=== PATIENT | male | born 1955 | race Caucasian/White ===

== ENCOUNTER 2023-06-18 12:08 | Outpatient (OUT) | payer MEDICARE, OTHER, SELFPAY ==
--- NOTE | 2023-06-18 | XR_ITS ---
The [address] [address] Patient Name: SUDHA HERR MRN: [id number] date: 1955 Sex: M Assigned Patient Location: [facility] Current Patient Location: Accession/Order Number: [id number] Exam Date: 06/18/2023 12:16 Report Date: 06/19/2023 01:14 At the request of: AGUSTIN HAMLIN Procedure: XR foot CARL min 3V PROCEDURE: XR foot CARL min 3V HISTORY: BILATERAL FOOT PAIN and swelling; chronic COMPARISON: None. FINDINGS: BONES:Moderate marked degenerative changes of the midfoot and the tarsal metatarsal joints bilaterally. Mild/moderate degenerative changes of the first metatarsophalangeal joints. Prominent degenerative enthesopathic spurring of the calcaneus. SOFT TISSUES:Moderate swelling bilaterally. EFFUSION:None visible. OTHER: Negative. XR/XR foot CARL min 3V IMPRESSION: 1. No acute bone abnormality. 2. Moderate degenerative changes bilaterally; predominantly involving the midfoot. Electronically authenticated by: GISSELLE MORA Date: 06/19/2023 01:14
== END 2023-06-18 12:09 | disposition home or self-care (01) ==
LOC: RAD 12:15
PROVIDERS: PCP Internal Medicine; Visit Provider Physician Assistant
DX: M25.571 Pain in right ankle and joints of right foot (principal); M25.572 Pain in left ankle and joints of left foot
CPT/HCPCS: 73630

== ENCOUNTER 2023-07-06 12:43 | Outpatient (OUT) | payer MEDICARE, OTHER, SELFPAY ==
--- NOTE | 2023-07-06 12:49 | VEIN_ITS ---
Patient Name: SUDHA HERR MR#: [id number] : 1955 Exam Date: 07/06/2023 Ordering Doctor: DR LAZARO BUTLER M.D. RADIOLOGY REPORT PROCEDURE: VC EXT VENOUS REFLUX CARL LMTD COMPARISON: None. INDICATIONS: Localized Edema R60 TECHNIQUE: Duplex imaging of the lower extremity to assess the deep and superficial venous system for the presence of deep or superficial venous incompetence and to document the location and severity of disease. The study includes evaluation of the great saphenous vein (GSV), anterior accessory saphenous vein (AASV) and small saphenous vein (SSV). Patient scanned in reverse Trendelenburg and standing. FINDINGS: RIGHT LOWER EXTREMITY: Saphenofemoral Junction Reflux: Yes 7.3mm 2.0 sec GSV: Diam (mm) Reflux/ Time (sec) Proximal Thigh 6.8 Yes 0.9 Mid Thigh 6.1 Yes 0.9 Distal Thigh 4.9 Yes 1.3 Prox Calf 3.9 Yes 1.4 Mid Calf 3.7 Yes 2.8 Saphenopopliteal Junction Reflux: 5.6mm Yes 1.5 SSV: Proximal Calf 5.5 Yes 0.9 Mid Calf 3.9 Yes 1.3 AASV: Proximal Thigh 3.8 No Mid Thigh 2.9 No Distal Thigh Thrombi: No acute or chronic thrombus visualized Compressibility: Normal Flow: Normal Preforator: Dist/med calf 3.2mm with 0.7s reflux. Mid/med calf 4.9mm with 0.9s reflux. Tech Note: Incompetent GSV and SSV. Patent varicose vein dist/med 2.7mm with 1.1s reflux. Patent varicose vein mid/posterior 3.3mm with 1.1s reflux. Patent varicose vein dist/med thigh 3.1mm with 0.9s reflux. LEFT LOWER EXTREMITY: Saphenofemoral Junction Reflux: Yes 6.4 mm 1.6 sec GSV: Diam (mm) Reflux/Time (sec) Proximal Thigh 6.1 Yes 1.6 Mid Thigh 5.6 Yes 1.4 Distal Thigh 4.6 Yes 0.7 Prox Calf 3.6 Yes 0.7 Mid Calf 3.8 Yes 0.9 Saphenopopliteal Junction Relux: 2.9 mm No SSV: Proximal Calf 2.0 No Mid Calf 2.5 Yes 0.5 AASV: Proximal Thigh 4.9 No Mid Thigh 3.8 Yes 0.9 Distal Thigh No Thrombi: No acute or chronic thrombus visualized Compressibility: Normal Flow: Normal Theatrical Dresser: Dist/med calf 4.0mm with 0.8s reflux. Mid/med calf 3.3mm with 1.1s reflux. Tech Note: Incompetent GSV. Patent varicose vein mid/med calf 4.0mm with 1.6s reflux. Patent varicose vein 3.9mm with 0.9s reflux. Patent varicose vein medial knee 3.8mm with 2.5s reflux. CONCLUSION: 1. Abnormally dilated and incompetent great saphenous veins bilaterally, right small saphenous vein, multiple incompetent branch saphenous varicosities and bilateral lower extremity screen printer veins. Dictated by: Isaías Quintero M.D. on 07/06/2023 at 14:30 Approved by: Isaías Quintero M.D. on 07/06/2023 at 14:57
--- NOTE | 2023-07-06 12:51 | VEIN_ITS ---
Patient Name: SUDHA HERR MR#: [id number] : 1955 Exam Date: 07/06/2023 Ordering Doctor: DR LAZARO BUTLER M.D. RADIOLOGY REPORT PROCEDURE: FACILITY EST [facility] - OFFICE VISIT INITIAL COMPARISON: None. PROGRESS NOTES: [age] year old male who presents with a 10 year history of leg swelling, muscle cramping, reticular and spider veins, skin discoloration. The patient's left leg symptoms are worse than the right. There has been a progression of symptoms over time. This increases with prolonged leg dependency. The patient describes an improvement with rest, elevation, exercise, support stockings. The patient denies any signs and symptoms to suggest arterial ischemia. The patient describes a family history varicose veins on maternal side, diabetes. The patient has drinking and smoking history of occasional alcohol consumption; daily smoker. Patient has a past medical history significant for bilateral hearing loss, peripheral neuropathy, hypertension, type 2 diabetes, restless leg syndrome, gout. The patient denies a history of deep venous thrombus or pulmonary embolus. See separate history and physical for medication list. No prior treatment for varicose or spider veins. Current use of compression stockings. After review of nurse notes, history and physical exam I discussed at length the pathophysiology of venous hypertension and possible treatments, therapies and strategies available. We discussed at length the importance of elevating the lower extremities above the level of the heart, increased physical activity and compression stocking use. Ultrasound venous reflux study performed today was discussed at length with the patient. The report demonstrates abnormally dilated and incompetent great saphenous veins bilaterally, right small saphenous vein, incompetent branch saphenous varicosities bilaterally, and dilated/incompetent lower extremity edge cutter veins bilaterally.. PHYSICAL EXAM: The right leg demonstrates several varicosities, prominent reticular and spider veins, no ulceration, mild-moderate edema, distal lower extremity skin discoloration. The left leg demonstrates several varicosities, prominent reticular and spider veins, no ulceration, mild-moderate edema, distal lower extremity skin discoloration. Both thighs, legs and feet were symmetrically warm to the touch. Good posterior tibial and dorsalis pedis pulses were present bilaterally. VEIN/ Facility EST Comprehensive IMPRESSION: 1. Bilateral lower extremity venous insufficiency 2. Bilateral lower extremity varicose veins 3. Mild-moderate lower extremity subcutaneous edema 4. No flow significant arterial disease 5. CEAP: C4a, EC, AP, GA PLAN: 1. Continued use of compression stockings 2. Elevated legs and increased physical activity symptomatic relief 3. Endovenous laser ablation of right great saphenous, left great saphenous, right small saphenous veins. 4. Microfoam chemical ablation of bilateral branch saphenous varicosities. 5. Sclerotherapy of numerous prominent reticular veins and scattered spider veins. Nurse notes, history and physical were reviewed and confirmed, see attached forms. The nurse was present throughout the physical exam and consultation Dictated by: Isaías Quintero M.D. on 07/06/2023 at 14:57 Approved by: Isaías Quintero M.D. on 07/06/2023 at 15:02
== END 2023-07-06 12:44 | disposition home or self-care (01) ==
LOC: VC 12:44
PROVIDERS: PCP Physician Assistant; Visit Provider Radiology Diagnostic Radiology
DX: R60.0 Localized edema (principal)
CPT/HCPCS: 93970; G0463

== ENCOUNTER 2023-07-07 11:59 | Outpatient (OUT) | payer MEDICARE, OTHER, SELFPAY ==
--- NOTE | 2023-07-07 14:05 | CA_ITS ---
The 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 PVR waveform with normal upstroke, amplitude and dicrotic notch Right: - significant pressure gradient between the calf and DP cuff - normal TERESA Left: - significant pressure gradient between the calf and DP cuff - normal TERESA Impression: - elevated indices (B/L thigh, B/L calf) consistent with calcified, noncompressible arterial aguilera, which may underestimate the degree of arterial disease present - normal arterial evaluation of the lower extremities without hemodynamic impairment of the B/L lower extremities at rest (right TERESA 1.07, left TERESA 1.23) Electronically Signed On 07-08-2023 7:20:57 EST by CHAIM CABALLERO
== END 2023-07-07 12:00 | disposition home or self-care (01) ==
LOC: CARD 11:59
PROVIDERS: PCP Physician Assistant; Visit Provider Internal Medicine
DX: R09.89 Other specified symptoms and signs involving the circulatory and respiratory systems (principal)
CPT/HCPCS: 93923

== ENCOUNTER 2023-11-03 13:58 | Outpatient (OUT) | payer MEDICARE, OTHER, SELFPAY ==
--- NOTE | 2023-11-03 14:41 | XR_ITS ---
The [address] [address] Patient Name: SUDHA HERR MRN: [id number] date: 1955 Sex: M Assigned Patient Location: LAB Current Patient Location: Accession/Order Number: [id number] Exam Date: 11/03/2023 14:25 Report Date: 11/05/2023 06:35 At the request of: SHAIKH DEION Procedure: XR cervical spine 2-3V EXAMINATION: XR cervical spine 2-3V HISTORY: neck pain, acute M54.2 ; acute neck pain radiating into shoulders COMPARISON: XR cervical spine 03/18/2014 FINDINGS: BONES: Reversal normal lordotic curvature of the cervical spine. Multilevel moderate degenerative facet arthropathy. No appreciable fracture or spondylolisthesis. DISC SPACES: Multilevel mild disc space narrowing. PARASPINOUS: Negative. No paraspinous abnormality is seen. OTHER: Negative. XR/XR cervical spine 2-3V IMPRESSION: 1. Reversal of normal lordotic curvature; also seen on the 2013 study, but slightly progressed. 2. Multilevel moderate degenerative changes. 3. Limited evaluation due to patient body habitus since the lower cervical spine is obscured by shoulder structures. Electronically authenticated by: GISSELLE MORA Date: 11/05/2023 06:35
--- NOTE | 2023-11-03 14:41 | XR_ITS ---
The [address] [address] Patient Name: SUDHA HERR MRN: [id number] date: 1955 Sex: M Assigned Patient Location: LAB Current Patient Location: LAB Accession/Order Number: [id number] Exam Date: 11/03/2023 14:25 Report Date: 11/03/2023 14:55 At the request of: SHAIKH DEION Procedure: XR shoulder CARL min 2V EXAMINATION: XR shoulder CARL min 2V HISTORY: Chronic pain of both shoulders M25.511 COMPARISON: No relevant comparison available. FINDINGS: RIGHT FINDINGS: BONES: High riding humeral head contacting the undersurface of the acromion process. Prominent degenerative osteophyte projecting inferiorly from articular margin of humeral head. Mild narrowing of the acromioclavicular joint with undersurface osteophytes. SOFT TISSUES: No visible soft tissue swelling. OTHER: Negative. LEFT FINDINGS: BONES: Narrowing of the glenohumeral joint with small degenerative osteophyte projecting inferiorly from the articular margin of the humeral head. Bone anchor within lateral humeral head from prior rotator cuff repair. Mild degenerative changes of the acromioclavicular joint. SOFT TISSUES: No visible soft tissue swelling. OTHER: Negative. XR/XR shoulder CARL min 2V IMPRESSION: RIGHT CONCLUSION: 1. High riding humeral head contacting the acromion process consistent with rotator cuff disruption versus marked thinning. 2. Moderate degenerative joint disease. No fracture. LEFT CONCLUSION: 1. Moderate degenerative joint disease. No acute bone abnormality. Electronically authenticated by: GISSELLE MORA Date: 11/03/2023 14:55
[2023-11-03 15:10] LABS: Basophils Absolute Auto 0.1 10^3/uL (0.0-0.1); Basophils Percent Auto 0.7 % (0.2-2.0); Eosinophils Absolute Auto 0.2 10^3/uL (0.0-0.7); Eosinophils Percent Auto 2.7 % (0.9-7.0); Hematocrit 40.6 % (42.0-54.0); Hemoglobin 13.4 g/dL (14.0-18.0); Immature Granulocytes Abs Auto 0.01 10^3/uL (0.00-0.03); Immature Granulocytes Pct Auto 0.1 % (0.0-0.5); Lymphocytes Absolute Auto 0.9 10^3/uL (1.2-3.8); Lymphocytes Percent Auto 13.6 % (20.5-60.0); Mean Corpuscular Hemoglobin 31.4 pg (25.9-34.0); Mean Corpuscular Volume 95.1 fL (80.0-94.0); Mean Platelet Volume 10.8 fL (9.5-13.5); Monocytes Absolute Auto 0.8 10^3/uL (0.3-0.8); Monocytes Percent Auto 11.9 % (1.7-12.0); Neutrophils Absolute Auto 4.8 10^3/uL (1.4-6.5); Platelet Count 250 10^3/uL (150-450); Red Blood Count 4.27 10^6/uL (4.70-6.10); Red Cell Distribution Width 12.8 % (11.0-15.0); White Blood Count 6.7 10^3/uL (4.0-11.0)
[2023-11-03 15:22] LABS: Microalbum Creatinine Ratio Ur 5.3 mg/g (0.0-29.9); Microalbumin Urine Random 2.2 mg/dL (<=30.0)
[2023-11-03 15:55] LABS: Estimated Average Glucose 137 mg/dL; Glycohemoglobin A1C 6.4 % (4.5-6.2)
[2023-11-03 15:56] LABS: Alanine Aminotransferase 35 U/L (16-63); Albumin Globulin Ratio 0.7; Albumin Level 3.3 g/dL (3.4-5.0); Alkaline Phosphatase 92 U/L (46-116); Anion Gap 13.9; Aspartate Amino Transferase 24 U/L (15-37); BUN Creatinine Ratio 17.5; Bilirubin Total 0.7 mg/dL (0.2-1.0); Calcium 9.3 mg/dL (8.5-10.1); Carbon Dioxide 28.1 mmol/L (21.0-32.0); Chloride 101 mmol/L (98-107); Cholesterol 115 mg/dL (<=200); Estimated GFR (African America >60 (>=60); Estimated GFR (Non-African Ame 57 (>=60); Globulin 4.6 g/dL; Glucose 103 mg/dL (74-106); HDL Cholesterol 29 mg/dL (40-60); Sodium 139 mmol/L (136-145); Total Protein 7.9 g/dL (6.4-8.2); Triglycerides 79 mg/dL (<=150); VLDL CHOLESTEROL 15.8 mg/dL
[2023-11-05 19:07] LABS: Free Testosterone(Direct) 2.1 pg/mL (6.6-18.1); Testosterone 79 ng/dL (264-916)
== END 2023-11-03 13:59 | disposition home or self-care (01) ==
LOC: LAB 14:02
PROVIDERS: PCP Physician Assistant; Visit Provider Internal Medicine
DX: M25.511 Pain in right shoulder (principal); E11.9 Type 2 diabetes mellitus without complications; I10 Essential (primary) hypertension; E78.5 Hyperlipidemia, unspecified; N52.9 Male erectile dysfunction, unspecified; G89.29 Other chronic pain; M25.512 Pain in left shoulder; M54.2 Cervicalgia; M19.011 Primary osteoarthritis, right shoulder
CPT/HCPCS: 36415; 72040; 73030; 80053; 80061; 82043; 82570; 83036; 84402; 84403; 85025

== ENCOUNTER 2023-11-12 10:30 | Outpatient (OUT) | payer MEDICARE, OTHER, SELFPAY ==
--- NOTE | 2023-11-12 10:35 | MR_ITS ---
[place] [id number] Patient Name: SUDHA HERR MRN: [id number] date: 1955 Sex: M Assigned Patient Location: MRI Current Patient Location: MRI Accession/Order Number: [id number] Exam Date: 11/12/2023 11:00 Report Date: 11/12/2023 16:36 At the request of: SHAIKH DEION Procedure: MR shoulder RT wo con EXAMINATION: MR shoulder RT wo con HISTORY: Chronic Right Shoulder Pain M25.511 COMPARISON: No relevant comparison available. TECHNIQUE: A variety of imaging planes and parameters were utilized for visualization of suspected pathology. Imaging was performed without or with contrast as indicated by examination type. FINDINGS: ROTATOR CUFF REGION CUFF TENDONS: A full thickness tear involves the supraspinatus and subscapularis tendons, with significant proximal retraction. CUFF MUSCLES: No significant fatty replacement. DELTOID: No significant atrophy or tear. LONG BICEPS TENDON: Disrupted versus marked attenuation. LABRUM/BICEPS ANCHOR SUPERIOR: No visible labral tear or biceps anchor pathology. ANTERIOR/INFERIOR: No visible tear or attrition. POSTERIOR: No posterior labrum abnormality. CAPSULE No visible capsular laxity or thickening. AC JOINT REGION AC JOINT: Moderate osteoarthropathy with moderate narrowing of the underlying coracoacromial arch. AC LIGAMENTS: Normal acromioclavicular ligament. CC LIGAMENTS: Normal coracoclavicular ligaments. ACROMION: Normal horizontal (Type I) configuration. SUBACROMIAL BURSA: Small amount of fluid within bursa. HYALINE CARTILAGE: Marked thinning with suspected areas of focal defect overlying the superior and superior lateral aspect of the humeral head. OTHER BONES: High riding humeral head contacting the undersurface of the acromion process. Large degenerative osteophyte projecting from inferior articular margin of the humeral head. OTHER OBSERVATIONS: No other significant findings or glenohumeral effusion. MR/MR shoulder RT wo con IMPRESSION: 1. Complete tear with significant proximal retraction of the supraspinatus and subscapularis tendons. 2. Disruption versus marked attenuation/atrophy of long head of biceps tendon. 3. Moderate degenerative changes of the acromioclavicular joint which would predispose to rotator cuff injury. 4. Cartilage thinning, high riding humeral head contacting the acromion process, and degenerative osteophyte from inferior margin of humeral head. Electronically authenticated by: GISSELLE MORA Date: 11/12/2023 16:36
== END 2023-11-12 10:31 | disposition home or self-care (01) ==
LOC: MRI 10:31
PROVIDERS: PCP Internal Medicine; Visit Provider Internal Medicine
DX: M25.511 Pain in right shoulder (principal); G89.29 Other chronic pain; M75.121 Complete rotator cuff tear or rupture of right shoulder, not specified as traumatic
CPT/HCPCS: 73221

== ENCOUNTER 2024-02-15 10:24 | Outpatient (OUT) | payer MEDICARE, OTHER, SELFPAY ==
--- NOTE | 2024-02-15 10:27 | VEIN_ITS ---
The [address] [address] Patient Name: SUDHA HERR MRN: [id number] date: 1955 Sex: M Assigned Patient Location: Current Patient Location: LAB Accession/Order Number: [id number] Exam Date: 02/15/2024 10:27 Report Date: 02/15/2024 12:11 At the request of: SHAIKH DEION Procedure: VC SEGMENTAL PRESSURES EXAM: VC SEGMENTAL PRESSURES HISTORY: I73.9 COMPARISON: None. FINDINGS: Segmental pressures presented as follows (right, left) in mmHg. Brachial: 130, 126 Upper thigh: 195, 211 Lower thigh: 157, 200 Calf: 149, 176 DPA: 138, 146 ACCOUNT CLASSIFICATION CLERK: 147, 159 1st Toe: 105, 108 TERESA: 1.13, 1.22 TBI: 0.81, 0.83 The ABIs are Normal The TBI's are Acceptable PVR waveforms: Right leg: Thigh: Normal Above knee: Normal Below knee: Normal Right ankle: Normal Left leg: Thigh: Normal Above knee: Normal Below knee: Normal Right ankle: Normal VEIN/VC SEGMENTAL PRESSURES IMPRESSION: Normal exam Electronically authenticated by: LAZARO BUTLER Date: 02/15/2024 12:11
== END 2024-02-15 10:25 | disposition home or self-care (01) ==
LOC: VC 10:25
PROVIDERS: PCP Internal Medicine; Visit Provider Internal Medicine
DX: I73.9 Peripheral vascular disease, unspecified (principal)
CPT/HCPCS: 93923

== ENCOUNTER 2024-02-15 11:10 | Outpatient (OUT) | payer MEDICARE, OTHER, SELFPAY ==
[2024-02-15 13:00] LABS: Anion Gap 16.4; BUN Creatinine Ratio 26.7; Calcium 8.9 mg/dL (8.5-10.1); Carbon Dioxide 22.6 mmol/L (21.0-32.0); Chloride 104 mmol/L (98-107); Estimated GFR (African America >60 (>=60); Estimated GFR (Non-African Ame >60 (>=60); Glucose 119 mg/dL (74-106); Sodium 138 mmol/L (136-145)
[2024-02-15 13:29] LABS: Prostate Specific Antigen Dx 0.15 ng/mL (<=4.00)
[2024-02-16 04:07] LABS: Prolactin 9.7 ng/mL (3.6-25.2); Sex Horm Binding Glob, Serum 45.6 nmol/L (19.3-76.4); Testosterone 249 ng/dL (264-916)
== END 2024-02-15 11:11 | disposition home or self-care (01) ==
LOC: LAB 11:16
PROVIDERS: PCP Internal Medicine; Visit Provider Internal Medicine
DX: R79.89 Other specified abnormal findings of blood chemistry (principal); E23.0 Hypopituitarism
CPT/HCPCS: 36415; 80048; 82728; 84146; 84153; 84270; 84403; 85018

== ENCOUNTER 2024-02-26 09:54 | Outpatient (OUT) | payer MEDICARE, OTHER, SELFPAY ==
--- NOTE | 2024-02-18 14:19 | P.DS_ITS ---
Discharge Plan Discharge Disposition: Home, Self-Care Outpatient Diagnostics: VC Endovenous Ablation 1VeinLT (Routine) Timeframe: 2 Weeks Facility: [facility] - Location: Vein Center Ordered By: Demarco Fuentes Print Language: Singaporean
--- NOTE | 2024-02-26 09:20 | W.VEIN ---
Discharge Plan Discharge Disposition: Home, Self-Care Outpatient Diagnostics: VC Facility EST LMTD (Routine) Timeframe: 2 Weeks Facility: [facility] - Location: Vein Center Ordered By: Demarco Fuentes VC EXT Venous LT Limited (Routine) Timeframe: 2 Weeks Facility: [facility] - Location: Vein Center Ordered By: Demarco Fuentes VC Endovenous Ablation 1VeinLT (Routine) Timeframe: 2 Weeks Facility: [facility] - Location: Vein Center Ordered By: Demarco Fuentes Follow Up Appointments: 03/04/2024 Plan of Treatment: follow-up evlauation with physician along with left leg limited u/s Patient Instructions: Endovenous Ablation (DC) Print Language: Indonesian Discharge Date/Time: 02/26/24 10:42
--- NOTE | 2024-02-26 09:47 | V.VEINS.HP ---
Vital Signs 02/18/24 14:24 02/26/24 10:03 Height 236 ft 2.65 in Weight 114.305 kg BP 122/68 BP Location Right Brachial BP Position Standing BP Cuff Size Adult BP Source Manual Cuff Respiration 18 Pulse 67 Pulse Source Monitor Pulse Oximetry (%) 96 Oxygen Delivery Method Room Air Comment The patient's blood pressure is elevated. Varicose Veins Patient in this day for EVLT of left GSV. Isaías Flores MD personally performed the services described in this documentation, as scribed by Ryder Flores RN in my presence and it is both accurate and complete. Ryder Flores RN, am scribing for, and in the presence of, Dr. Isaías Quintero and in the presence of the patient. thigh: bilateral (Bilateral leg veins symptoms left>right), knee: bilateral, calf: bilateral and ankle: bilateral aching, burning, cramping and dull 4 10 years Worsened in recent months: Yes standing elevating extremities and compression stockings Reports heaviness, limb pain, edema and leg edema History of lower extremity trauma: No Superficial thrombophlebitis: No Family history of varicose veins: yes Has patient had previous lower extremity venous surgery: No Patient has previously received the following treatment(s) for lower extremity varicose veins: Reports none Does patient have a history of : not applicable Has patient had lower extremity venous scan with relux testing: No Support hose used: Yes Problems walking or doing physical activity: Yes How does it affect you: often times have to stop and elevate feet/legs Do you walk much: Yes Do you stand much: Yes Review of Systems ROS Narrative Isaías Flores MD personally performed the services described in this documentation, as scribed by Ryder Flores RN in my presence and it is both accurate and complete. Ryder Flores RN, am scribing for, and in the presence of, Dr. Isaías Quintero and in the presence of the patient. Status of ROS 10 or more systems reviewed and unremarkable except as noted in history and below Cardiovascular Reports: edema Integumentary/Breast Reports: redness and changes in skin color Hematologic/Lymphatic Reports: easy bruising and easy bleeding PFSH [facility] Medical History (Updated 02/26/24 @ 12:39 by Ryder Flores) FH: total knee replacement ?Z82.69 - Family history of other diseases of the musculoskeletal system and connective tissue (ICD-10) Rotator cuff arthropathy ?M12.819 - Other specific arthropathies, not elsewhere classified, unspecified shoulder (ICD-10) Restless leg ?G25.81 - Restless legs syndrome (ICD-10) Gout ?M10.9 - Gout, unspecified (ICD-10) Type 2 diabetes mellitus ?E11.9 - Type 2 diabetes mellitus without complications (ICD-10) Peripheral neuropathy ?G62.9 - Polyneuropathy, unspecified (ICD-10) Hypertension ?I10 - Essential (primary) hypertension (ICD-10) Anxiety ?F41.9 - Anxiety disorder, unspecified (ICD-10) Hyperlipemia ?E78.5 - Hyperlipidemia, unspecified (ICD-10) Depression ?F32.A - Depression, unspecified (ICD-10) Arthritis ?M19.90 - Unspecified osteoarthritis, unspecified site (ICD-10) Phlebitis of superficial vein of left lower extremity ?I80.02 - Phlebitis and thrombophlebitis of superficial vessels of left lower extremity (ICD-10) Varicose veins of bilateral lower extremities with pain ?I83.813 - Varicose veins of bilateral lower extremities with pain (ICD-10) Surgical History (Updated 02/26/24 @ 12:39 by Ryder Flores) H/O heart artery stent ?Z95.5 - Presence of coronary angioplasty implant and graft (ICD-10) Family History (Updated 02/26/24 @ 12:40 by Ryder Flores) Other Family history of diabetes mellitus Family history of hypertension Varicose veins of bilateral lower extremities with pain Meds Home Medications and Allergies Home Medications ?Medication ?Instructions ?Recorded ?Confirmed ?Type atorvastatin 80 mg tablet 80 mg PO QPM 02/26/24 02/26/24 History hydroxychloroquine PO 02/26/24 History lisinopril 10 1 tab PO DAILY 02/26/24 02/26/24 History mg-hydrochlorothiazide 12.5 mg tablet magnesium oxide-magnesium amino cap PO 02/26/24 History acid chelate 300 mg capsule metformin 500 mg tablet 500 mg PO BID 02/26/24 02/26/24 History naproxen sodium 220 mg capsule 220 mg PO BID PRN pain 02/26/24 02/26/24 History (Aleve) Allergies Allergy/AdvReac Type Severity Reaction Status Date / Time amoxicillin [From Augmentin] Allergy Severe Difficulty Verified 02/19/24 15:40 Breathing clavulanic acid Allergy Severe Difficulty Verified 02/19/24 15:40 [From Augmentin] Breathing penicillamine Allergy Severe Anaphylaxis Verified 02/19/24 15:40 Penicillins Allergy Swelling Verified 02/26/24 12:43 of Lip/Tongue/Throat Exam Narrative Exam Narrative: Isaías Flores MD personally performed the services described in this documentation, as scribed by Ryder Flores RN in my presence and it is both accurate and complete. Ryder Flores RN, am scribing for, and in the presence of, Dr. Isaías Quintero and in the presence of the patient. Constitutional Documenting provider has reviewed patient's vital signs: yes Common normals: oriented x3 Nutritional appearance: overweight Cardio Peripheral pulses: posterior tibial pulses present Extremity Common normals: normal capillary refill General: edema Right lower extremity: lower leg Right lower leg: inspection and palpation Left lower extremity: lower leg Left lower leg: inspection and palpation Neuro Common normals: oriented x3 Assessment and Plan Assessment and Plan (1) Phlebitis of superficial vein of left lower extremity: (2) Varicose veins of bilateral lower extremities with pain: Plan f/u 03/04/2024 for physician exam and left leg limited u/s Isaías Flores MD personally performed the services described in this documentation, as scribed by Ryder Flores RN in my presence and it is both accurate and complete. Ryder Flores RN, am scribing for, and in the presence of, Dr. Isaías Quintero and in the presence of the patient. Procedures Procedure Instructions Procedures Plan of care: Risks and benefits of the procedure were discussed at length and informed written consent was obtained.? Time-out completed for verification of correct patient, procedure and site.? Staff present during time-out: Ryder Flores RN,? Isaías Quintero MD, Aliyah Beedarinel [facility]. Time Out Time__904 Patient prepped and procedure performed in usual sterile fashion. Risk of injury related to use of Diode laser and/or laser devices? __CR___ ?Serial number of laser used :? [id number] Control panel self test performed, electrical cords in good condition, floor is dry, basin of water available, fire extinguisher in close proximity_CR__ Polycarbonate goggles available and Laser warning signs outside of doors___CR__ Eye protection provided to patient and staff in room_CR___ Use of laser retardant drapes and dull blackened instruments as directed__CR___ Use of nonflammable prep solutions and use of saline soaked sponges to protect tissues as indicated _CR___ Length __63 cm Laser operated by Physician verbal confirmation laser locked in place__CR__ Laser start time (date and time) _02/26/2024@__1101 Laser stop time(date and time) _02/26/2024@__1122 Murphy _8.0___ Average laser use _3255 Joules Average laser use___407 seconds Pulse continuous ___CR_? Pulse intermittent ___ Amount of Tumescent used _225cc Evaluated patient for signs and symptoms of electrical injury __CR___ ? Skin clear at insertion site __CR___ Patient tolerated procedure well.? Left leg Coban dressing applied to access site.? Applied Left thigh high leg compression stocking. Will return on 03/04/2024 for Left leg limited venous ultrasound and exam.
[2024-02-26] MEDS: LIDOCAINE HCL 1% 100 MG/10 ML MDV INJ (09:57)
[2024-02-26] MEDS: 0.9 % SODIUM CHLORIDE 500 ML, LIDOCAINE HCL 20 ML, SODIUM BICARBONATE 10 MEQ INJ (09:58)
--- NOTE | 2024-02-26 10:02 | VEIN_ITS ---
The [address] [address] Patient Name: SUDHA HERR MRN: [id number] date: 1955 Sex: M Assigned Patient Location: Current Patient Location: Accession/Order Number: [id number] Exam Date: 02/26/2024 10:00 Report Date: 02/26/2024 11:47 At the request of: LAZARO BUTLER Procedure: VC Endovenous Ablation 1VeinLT EXAMINATION: VC Endovenous Ablation 1VeinLT HISTORY: I83.813 Bilateral leg painful varicose veins The risks and benefits of the procedure had been previously discussed, and were rediscussed at length. Informed written consent was obtained. Ryder Flores RN and Aliyah Noe RDMS, RVT assisted. Time out procedure was performed. The left lower extremity was prepared and draped in the usual sterile fashion to allow knee flexion in the sterile field. Duplex ultrasound probe was draped in a sterile cover, sterile transmission gel was used. Venous mapping was performed with the areas of dilation and large tributaries marked. The total length was 63 cm (treated in segments) from the entry 3 cm above the ankle to 3 cm below the Saphenofemoral junction. The diameter of the left great saphenous vein ranged from 6.8 mm. A 30 gauge needle and 1% buffered lidocaine was used to anesthetize the entry site. A 4 mm incision was made with a scalpel and the saphenous vein was entered percutaneously under direct ultrasound guidance with a micropuncture set, a single stick was successful in gaining access. A micro-guide wire was inserted and the needle removed. A micro-set including a dilator was inserted over the microwire and the needle and dilator were removed. A guide wire was inserted through the micro-set and guided through the saphenous vein to the saphenofemoral junction. The dilator was removed and an introducer sheath was inserted over the wire until the end of the sheath entered the saphenofemoral junction. The dilator and wire were removed and the 600 micron fiber was introduced and placed and positioned so that it extended beyond the sheath and was 3 cm distal to the saphenofemoral or saphenopopliteal junction. Final position of the fiber was determined by ultrasound guidance and duplex imaging. Tumescent anesthetic was delivered by ultrasound guidance. 225 cc of fluid was delivered along the entire course of the saphenous vein. The solution consisted of 1000 cc of normal saline with 40 mL of 1% lidocaine and 20 mL of sodium bicarbonate. A final positioning check was made. The energy source was turned on by means of the foot pedal and the fiber and sheath were withdrawn. The total number of Joules delivered was 3255. The laser was active for 407 seconds under continuous pulse, average laser use of 8 J. Laser start time: 11:01 AM Laser stop time: 11:22 AM Date: 02/26/2024. A duplex ultrasound revealed compressibility and flow at the saphenofemoral junction immediately after the procedure. Hemostasis at the access site was achieved. The skin incision of the saphenous vein was closed with a 4 x 4. A compression stocking was applied. Postop instructions were given. A follow up appointment was recommended and scheduled. The patient tolerated the procedure well. Electronically authenticated by: GISSELLE MORA Date: 02/26/2024 11:47
[2024-02-26 10:03] VITALS: BP 122/68; PULSE 67; O2SAT 96
--- OUTSIDE RECORDS SUMMARY | 2024-02-26 10:10 | XMS_ITS | CCD ---
Author Organization [facility] Care Team Providers Care Director Market Intelligence Name Role Phone FAROMI, PULIDO H Admitting Unavailable FAWWAD, PULIDO H Primary Care Unavailable FAWSHAHANA, PULIDO H Consulting Unavailable DEION, PULIDO H Attending Unavailable DEION, PULIDO H Primary Care Unavailable PAVEL, DR GONZALEZ Admitting Unavailable PAVEL, DR GONZALEZ Consulting Unavailable PAVEL, DR GONZALEZ Attending Unavailable Leandra Villalobos Unavailable AMAN BECK Admitting Unavailable AMAN BECK Attending Unavailable AMAN BECK Referring Unavailable BEV HERNANDEZ Primary Care Unavailable Jacob Espinal MD Primary Care Provider [phone] YADIEL LACEY Attending Unavailable JACOB ESPINAL Primary Care Unavailable DEION, PULIDO Attending Unavailable VIKASH LYNCH Attending Unavailable DEION, PULIOD Referring Unavailable AMAN BECK Attending Unavailable AMAN BECK Referring Unavailable RHIANNON BURR Attending Unavailable DARIELD, PULIDO Referring Unavailable RHIANNON BURR Attending Unavailable KOJOWAD, PULIDO Referring Unavailable VIKASH LYNCH Attending Unavailable DEION, PULIDO Referring Unavailable AMAN BECK Attending Unavailable DEION, Attending Unavailable CHASIDY ROSS Attending Unavailable DEION, PULIDO Attending Unavailable GISSELLE MCGILL Attending Unavailable CHASIDY ROSS Attending Unavailable DEION, PULIDO Attending Unavailable Allergies Allergy Classification Reported Allergen(s) Allergy Type Date of Onset Reaction(s) Facility (1 source) Penicillin Drug Allergy 0 [facility] (1 source) Penicillin G Drug Allergy anaphylaxis [place] Other (3 sources) Penicillins; Translations: [PENICILLINS] Propensity to adverse reactions to drug (disorder) 8 Anaphylaxis [facility] Medications Current Medications Medication Drug Class(es) Dates Sig (Normalized) Sig (Original) Acetaminophen (1 source) Tylenol Active Aspir-81 (1 source) Aspir-81 Active aspirin 81 mg chewable tablet (1 source) Platelet Aggregation Inhibitor, Nonsteroidal Anti-inflammatory Drug aspirin 81 mg chewable tablet Chew 1 tablet (81 mg) once daily. Active atorvastatin 40 mg oral tablet (1 source) HMG-CoA Reductase Inhibitor take 1 tablet by mouth every twenty-four hours Atorvastatin Calcium 40 MG 1 tablet Orally Once a day Active clindamycin 150 mg oral capsule (1 source) Lincosamide Antibacterial Start: 03-10-2023 clindamycin (Cleocin) 150 mg capsule Take 1 capsule (150 mg) by mouth. 03/10/2023 Active hydroCHLOROthiazide 12.5 mg / lisinopril 10 mg oral tablet (2 sources) Thiazide Diuretic, Angiotensin Converting Enzyme Inhibitor take 1 tablet by mouth once daily lisinopriL-hydro chlorothiazide 10-12.5 mg tablet Take 1 tablet by mouth once daily. Active take 1 tablet by guero th every twenty-four hours Lisinopril-hydroCHLOROthiazide 20-12.5 M G 1 tablet Orally Once a day Active hydroxychloroquine sulfate 200 mg oral tablet (1 source) Antimalarial, Antirheumatic Agent take 1 tablet by mouth twice daily hydroxychloroquine (Plaquenil) 200 mg tablet Take 1 tablet (200 mg) by mouth 2 times a day. Active metFORMIN hydrochloride 500 mg oral tablet (2 sources) Biguanide Start: 2022 metFORMIN (Glucophage) 500 mg tablet 1 tablet (500 mg) 2 times daily (morning and late afternoon). 06/17/2023 Active take 1 tablet by guero th every twelve hours metFORMIN HCl 500 MG 1 tablet with meals Orally Twice a day Active sildenafil 50 mg oral tablet (1 source) Phosphodiesterase 5 Inhibitor take 1 tablet by mouth every twenty-four hours as needed sildenafil (Viagra) 50 mg tablet Take 1 tablet (50 mg) by mouth once daily as needed. Active terbinafine (1 source) Allylamine Antifungal Start: 023 Terbinafine HCl 1 % 1 application Externally bid for 21 days May, Active Completed/Discontinued Medications Medication Drug Class(es) Dates Sig (Normalized) Sig (Original) naproxen sodium 550 mg oral tablet (2 sources) Nonsteroidal Anti-inflammatory Drug Start: 01-14-2021 take 1 tablet by mouth every twelve hours Anaprox DS 550 MG 1 tablet Orally Twice a day for 10 days Jan, Not-Taking take 1 tablet by guero th every twelve hours at mealtime as needed Aleve 220 MG 1 tablet with food or milk as needed Orally every 12 hrs Active oxyCODONE hydrochloride 5 mg oral tablet (1 source) Opioid Agonist take 1 tablet by mouth every six hours oxyCODONE HCl 5 MG 1 tablet as needed Orally every 6 hrs Not-Taking Problems Active Problems Problem Classification Problem Date Documented Date Episodic/Chronic Cardiac dysrhythmias (4 sources) Sinus bradycardia; Translations: [Bradycardia, unspecified] Onset: 01-18-2024 01-18-2024 Episodic Diabetes mellitus without complication (5 sources) Type 2 diabetes mellitus without complications; Translations: [Latent autoimmune diabetes mellitus in adult] Onset: 12-20-2021 Chronic Disorders of lipid metabolism (1 source) Hyperlipidemia, unspecified; Translations: [HYPERLIPIDEMIA UNSPECIFIED] Onset: 12-20-2021 Chronic Essential hypertension (8 sources) Essential (primary) hypertension; Translations: [Essential hypertension] Onset: 12-17-2021 Chronic Mycoses (1 source) Tinea pedis Episodic Nutritional deficiencies (3 sources) Vitamin D deficiency, unspecified; Translations: [VITAMIN D DEFICIENCY UNSPECIFIED] Onset: 02-11-2022 Chronic Nutritional deficiencies (1 source) Dietary selenium deficiency; Translations: [DIETARY SELENIUM DEFICIENCY] Onset: 02-12-2022 Episodic Occlusion or stenosis of precerebral arteries (3 sources) Occlusion and stenosis of multiple and bilateral cerebral arteries; Translations: [Occlusion and stenosis of bilateral carotid arteries] Onset: 01-18-2024 01-18-2024 Chronic Other aftercare (1 source) Encounter for surgical aftercare following surgery on the circulatory system; Translations: [Encounter for postoperative carotid endarterectomy surveillance] Episodic Other nervous system disorders (1 source) Polyneuropathy, unspecified; Translations: [POLYNEUROPATHY UNSPECIFIED] Onset: 12-20-2021 Chronic Other non-traumatic joint disorders (1 source) Pain in unspecified joint; Translations: [PAIN IN UNSPECIFIED JOINT] Onset: 02-12-2022 Episodic Other nutritional; endocrine; and metabolic disorders (2 sources) Body mass index 30+ - obesity; Translations: [Body mass index (BMI) 36.0-36.9, adult] Onset: 01-18-2024 01-18-2024 Chronic Other nutritional; endocrine; and metabolic disorders (2 sources) Body mass index (BMI) 36.0-36.9, adult; Translations: [Body mass index (BMI) 36.0-36.9, adult] Onset: 01-18-2024 Chronic Residual codes; unclassified (1 source) Obstructive sleep apnea syndrome; Translations: [Obstructive sleep apnea (adult) (pediatric)] Chronic Screening and history of mental health and substance abuse codes (1 source) Ex-smoker; Translations: [Personal history of nicotine dependence] Episodic Past or Other Problems Problem Classification Problem Date Documented Da te Episodic/Chronic Unclassified (1 source) Onset: 01-18-2024 01-18-2024 Results Test Name Value Interpretation Reference Range Facility ECG 12 [place] 01-18-2024 Mild sinus bradycardia nonspecific ST-T changes [facility] Work Phone: Glucose - FINGER STICKon Glucose [Mass/Vol] 111 mg/dL [employer] Other CBC AUTO DIFFon 02-11-2022 BASO # 0.0 103/ul Normal 0.0-0.1 [facility] Comment on above: Performed By: #### C BC #### [facility] [address] [place] [address] Dr. Melinda Quintero Basophils/100 WBC (Bld) 0.7 % Normal 0.2-2.0 [facility] Comment on above: Performed By: #### C BC #### [facility] [address] [place] [address] Dr. Melinda Quintero EO # 0.2 103/ul Normal 0.0-0.7 [facility] Comment on above: Performed By: #### C BC #### [facility] [address] [place] [address] Dr. Melinda Quintero Eosinophils/100 WBC (Bld) 2.6 % Normal 0.9-7.0 [facility] Comment on above: Performed By: #### C BC #### [facility] [address] [place] [address] Dr. Melinda Quintero Erythrocyte distribution width (RBC) [Ratio] 13.5 % Normal 11.0-15.0 [facility] Comment on above: Performed By: #### C BC #### [facility] [address] [place] [address] Dr. Melinda Quintero Hematocrit (Bld) [Volume fraction] 44.3 % Normal 42.0-54.0 [facility] Comment on above: Performed By: #### C BC #### [facility] [address] [place] [address] Dr. Melinda Quintero Hemoglobin (Bld) [Mass/Vol] 14.8 g/dL Normal 14.0-18.0 [facility] Comment on above: Performed By: #### C BC #### [facility] [address] [place] [address] Dr. Melinda Quintero IG # 0.02 10e3/ul Normal 0.00-0.03 [facility] Comment on above: Performed By: #### C BC #### [facility] [address] [place] [address] Dr. Melinda Quintero IG % 0.3 % Normal 0.0-0.5 [facility] Comment on above: Performed By: #### C BC #### [facility] [address] [place] [address] Dr. Melinda Quintero LYMPH # 1.3 103/ul Normal 1.2-3.8 [facility] Comment on above: Performed By: #### C BC #### [facility] [address] [place] [address] Dr. Melinda Quintero Lymphocytes/100 WBC (Bld) 20.9 % Normal 20.5-60.0 [facility] Comment on above: Performed By: #### C BC #### [facility] [address] [place] [address] Dr. Melinda Quintero MANUAL DIFF REQ NO Normal [facility] Comment on above: Performed By: #### C BC #### [facility] [address] [place] [address] Dr. Melinda Quintero MCH (RBC) [Entitic mass] 32.5 pg Normal 25.9-34.0 [facility] Comment on above: Performed By: #### C BC #### [facility] [address] [place] [address] Dr. Melinda Quintero MCHC (RBC) [Mass/Vol] 33.4 g/dL Normal 29.9-35.2 [facility] Comment on above: Performed By: #### C BC #### [facility] [address] [place] [address] Dr. Melinda Quintero MCV (RBC) [Entitic vol] 97.4 fL Critically high 80.0-94.0 [facility] Comment on above: Performed By: #### C BC #### [facility] [address] [place] [address] Dr. Melinda Quintero MONO # 0.9 103/ul Critically high 0.3-0.[address] [facility] Comment on above: Performed By: #### C BC #### [facility] [address] [place] [address] Dr. Melinda Quintero Monocytes/100 WBC (Bld) 14.4 % Critically high 1.7-12.0 [facility] Comment on above: Performed By: #### C BC #### [facility] [address] [place] [address] Dr. Melinda Quintero NEUT # 3.7 103/ul Normal 1.4-6.5 [facility] Comment on above: Performed By: #### C BC #### [facility] [address] [place] [address] Dr. Melinda Quintero Neutrophils/100 WBC (Bld) 61.1 % Normal 43.0-75.0 [facility] Comment on above: Performed By: #### C BC #### [facility] [address] [place] [address] Dr. Melinda Quintero Platelet mean volume (Bld) [Entitic vol] 11.1 fL Normal 9.5-13.5 [facility] Comment on above: Performed By: #### C BC #### [facility] [address] [place] [address] Dr. Melinda Quintero PLT 168 103/ul Normal 150-450 [facility] Comment on above: Performed By: #### C BC #### [facility] [address] [place] [address] Dr. Melinda Quintero RBC 4.55 106/ul Critically low 4.70-6.10 [facility] Comment on above: Performed By: #### C BC #### [facility] [address] [place] [address] Dr. Melinda Quintero WBC 6.1 103/ul Normal 4.0-11.0 [facility] Comment on above: Performed By: #### C BC #### [facility] [address] [place] [address] Dr. Melinda Quintero PROF 14(COMP METB)on 022 Albumin [Mass/Vol] 3.6 g/dL Normal 3.4-5.0 [facility] Comment on above: Performed By: #### C MP #### [facility] [address] [place] [address] Dr. Melinda Quintero Albumin/Globulin [Mass ratio] 1.0 {ratio} Normal [facility] Comment on above: Performed By: #### C MP #### [facility] [address] [place] [address] Dr. Melinda Quintero ALP [Catalytic activity/Vol] 73 U/L Normal 46-116 [facility] Comment on above: Performed By: #### C MP #### [facility] [address] [place] [address] Dr. Melinda Quintero ALT [Catalytic activity/Vol] 35 U/L Normal 16-63 [facility] Comment on above: Performed By: #### C MP #### [facility] [address] [place] [address] Dr. Melinda Quintero Anion gap [Moles/Vol] 12.6 mmol/L Normal [facility] Comment on above: Performed By: #### C MP #### [facility] [address] [address] [address] Melinda Quintero AST [Catalytic activity/Vol] 19 U/L Normal 15-37 [facility] Comment on above: Performed By: #### C MP #### [facility] [address] [address] [address] Melinda Quintero Bilirubin [Mass/Vol] 0.6 mg/dL Normal 0.2-1.0 [facility] Comment on above: Performed By: #### C MP #### [facility] [address] [address] [address] Melinda Quintero Calcium [Mass/Vol] 8.7 mg/dL Normal 8.5-10.1 [facility] Comment on above: Performed By: #### C MP #### [facility] [address] [address] [address] Melinda Quintero Chloride [Moles/Vol] 104 mmol/L Normal 98-107 [facility] Comment on above: Performed By: #### C MP #### [facility] [address] [address] [address] Melinda Quintero CO2 [Moles/Vol] 26.5 mmol/L Normal 21.0-32.0 [facility] Comment on above: Performed By: #### C MP #### [facility] [address] [address] [address] Melinda Quintero Creatinine [Mass/Vol] 0.93 mg/dL Normal 0.70-1.30 [facility] Comment on above: Performed By: #### C MP #### [facility] [address] [address] [address] Melinda Quintero EGFR-AF ALBANIAN >60 Normal >=60 [facility] Comment on above: Performed By: #### C MP #### [facility] [address] [address] [address] Melinda Quintero EGFR-NON AF ALBANIAN >60 Normal >=60 [facility] Comment on above: Performed By: #### C MP #### [facility] [address] [address] [address] Melinda Quintero Globulin (S) [Mass/Vol] 3.6 g/dL Normal [facility] Comment on above: Performed By: #### C MP #### [facility] [address] [address] [address] Melinda Quintero Glucose [Mass/Vol] 105 mg/dL Normal 74-106 The [facility] Comment on above: Performed By: #### C MP #### [facility] [address] [address] [address] Mleinda Quintero Potassium [Moles/Vol] 4.1 mmol/L Normal 3.5-5.1 [facility] Comment on above: Performed By: #### C MP #### [facility] [address] [place] [address] Dr. Melinda Quintero Protein [Mass/Vol] 7.2 g/dL Normal 6.4-8.2 [facility] Comment on above: Performed By: #### C MP #### [facility] [address] [address] [address] Melinda Quintero Sodium [Moles/Vol] 139 mmol/L Normal 136-145 [facility] Comment on above: Performed By: #### C MP #### [facility] [address] [place] [address] Dr. Melinda Quintero Urea nitrogen [Mass/Vol] 20.0 mg/dL Critically high 7.0-18.0 [facility] Comment on above: Performed By: #### C MP #### [facility] [address] [address] [address] Melinda Quintero Urea nitrogen/Creatinine [Mass ratio] 21.5 mg/mg Normal [facility] Comment on above: Performed By: #### C MP #### [facility] [address] [address] [address] Melinda Quintero VITAMIN D 25 OHon 02-11-2022 VIT D 25-OH 23.4 ng/mL Normal [facility] Comment on above: Performed By: #### V ITAD #### [facility] [address] [place] [address] Dr. Melinda Quintero VIT D RANGES SEE BELOW Normal [facility] Comment on above: Result Comment: <20 ng/mL Vit D deficient 20 - <30 ng/mL Vit D insufficient 30 - 100 ng/mL Vit D sufficient >100 ng/mL Potential Toxicity Performed By: #### V ITAD #### [facility] [address] [place] [address] Dr. Melinda Quintero CBC AUTO DIFFon 12-17-2021 BASO # 0.1 103/ul Normal 0.0-0.1 [facility] Comment on above: Performed By: #### C BC #### [facility] [address] [place] [address] Dr. Melinda Quintero Basophils/100 WBC (Bld) 0.9 % Normal 0.2-2.0 [facility] Comment on above: Performed By: #### C BC #### [facility] [address] [place] [address] Dr. Melinda Quintero EO # 0.2 103/ul Normal 0.0-0.7 [facility] Comment on above: Performed By: #### C BC #### [facility] [address] [place] [address] Dr. Melinda Quintero Eosinophils/100 WBC (Bld) 2.6 % Normal 0.9-7.0 [facility] Comment on above: Performed By: #### C BC #### [facility] [address] [place] [address] Dr. Melinda Quintero Erythrocyte distribution width (RBC) [Ratio] 13.3 % Normal 11.0-15.0 [facility] Comment on above: Performed By: #### C BC #### [facility] [address] [place] [address] Dr. Melinda Quintero Hematocrit (Bld) [Volume fraction] 44.6 % Normal 42.0-54.0 [facility] Comment on above: Performed By: #### C BC #### [facility] [address] [place] [address] Dr. Melinda Quintero Hemoglobin (Bld) [Mass/Vol] 14.7 g/dL Normal 14.0-18.0 [facility] Comment on above: Performed By: #### C BC #### [facility] [address] [place] [address] Dr. Melinda Quintero IG # 0.02 10e3/ul Normal 0.00-0.03 [facility] Comment on above: Performed By: #### C BC #### [facility] [address] [place] [address] Dr. Melinda Quintero IG % 0.3 % Normal 0.0-0.5 [facility] Comment on above: Performed By: #### C BC #### [facility] [address] [place] [address] Dr. Melinda Quintero LYMPH # 2.0 103/ul Normal 1.2-3.8 [facility] Comment on above: Performed By: #### C BC #### [facility] [address] [place] [address] Dr. Melinda Quintero Lymphocytes/100 WBC (Bld) 24.8 % Normal 20.5-60.0 [facility] Comment on above: Performed By: #### C BC #### [facility] [address] [place] [address] Dr. Melinda Quintero MANUAL DIFF REQ NO Normal [facility] Comment on above: Performed By: #### C BC #### [facility] [address] [place] [address] Dr. Melinda Quintero MCH (RBC) [Entitic mass] 32.0 pg Normal 25.9-34.0 [facility] Comment on above: Performed By: #### C BC #### [facility] [address] [place] [address] Dr. Melinda Quintero MCHC (RBC) [Mass/Vol] 33.0 g/dL Normal 29.9-35.2 [facility] Comment on above: Performed By: #### C BC #### [facility] [address] [place] [address] Dr. Melinda Quintero MCV (RBC) [Entitic vol] 97.0 fL Critically high 80.0-94.0 [facility] Comment on above: Performed By: #### C BC #### [facility] [address] [address] [address] Melinda Quintero MONO # 0.8 103/ul Normal 0.3-0.8 [facility] Comment on above: Performed By: #### C BC #### [facility] [address] [address] [address] Melinda Quintero Monocytes/100 WBC (Bld) 10.3 % Normal 1.7-12.0 [facility] Comment on above: Performed By: #### C BC #### [facility] [address] [address] [address] Melinda Quintero NEUT # 4.9 103/ul Normal 1.4-6.5 [facility] Comment on above: Performed By: #### C BC #### [facility] [address] [place] [address] Dr. Melinda Quintero Neutrophils/100 WBC (Bld) 61.1 % Normal 43.0-75.0 [facility] Comment on above: Performed By: #### C BC #### [facility] [address] [place] [address] Dr. Melinda Quintero Platelet mean volume (Bld) [Entitic vol] 11.2 fL Normal 9.5-13.5 [facility] Comment on above: Performed By: #### C BC #### [facility] [address] [place] [address] Dr. Melinda Quintero PLT 242 103/ul Normal 150-450 [facility] Comment on above: Performed By: #### C BC #### [facility] [address] [place] [address] Dr. Melinda Quintero RBC 4.60 106/ul Critically low 4.70-6.[address] [facility] Comment on above: Performed By: #### C BC #### [facility] [address] [address] [address] Melinda Quintero WBC 8.0 103/ul Normal 4.0-11.0 [facility] Comment on above: Performed By: #### C BC #### [facility] [address] [address] [address] Melinda Quintero GLYCOHEMOGLOBIN A1Con 2021 ADA RECOMMENDATION SEE BELOW Normal [facility] Comment on above: Result Comment: ADA RECOMMENDED LIMIT 4.0 - 6.0 ADA THERAPEUTIC TARGET < 7.0 ACTION SUGGESTED > 7.0 Performed By: #### A 1C #### [facility] [address] [address] [address] Melinda Quintero Glucose [Mass/Vol] 128 mg/dL Normal [facility] Comment on above: Performed By: #### A 1C #### [facility] [address] [place] [address] Dr. Melinda Quintero HbA1c (Bld) [Mass fraction] 6.1 % Normal 4.5-6.2 [facility] Comment on above: Performed By: #### A 1C #### [facility] [address] [place] [address] Dr. Melinda Quintero LIPID PROFILEon 12-17-2021 CHOL-HDL RATIO NORM SEE BELOW Normal [facility] Comment on above: Result Comment: 3.3 - 4.4 LOW RISK 4.4 - 7.1 AVERAGE RISK 7.1 - 11.0 MODERATE RISK >11.0 HIGH RISK Performed By: #### L IPID, CMP #### [facility] [address] [place] [address] Dr. Melinda Quintero Cholesterol [Mass/Vol] 86 mg/dL Normal <=200 [facility] Comment on above: Performed By: #### L IPID, CMP #### [facility] [address] [place] [address] Dr. Melinda Quintero Cholesterol in HDL [Mass/Vol] 38 mg/dL Critically low 40-60 [facility] Comment on above: Performed By: #### L IPID, CMP #### [facility] [address] [place] [address] Dr. Melinda Quintero Cholesterol in LDL [Mass/Vol] 33.8 mg/dL Normal [facility] Comment on above: Performed By: #### L IPID, CMP #### [facility] [address] [place] [address] Dr. Melinda Quintero Cholesterol.total/Ch olesterol in HDL [Mass ratio] 2.3 {ratio} Normal [facility] Comment on above: Performed By: #### L IPID, CMP #### [facility] [address] [address] [address] Melinda Quintero HDL NORMAL > or = 60 mg/dl - LOW CARDIOVASCULAR RISK <40 mg/dl - HIGH CARDIOVASCULAR RISK Normal [facility] Comment on above: Performed By: #### L IPID, CMP #### [facility] [address] [address] [address] Melinda Quintero LDL CALC NORMAL SEE BELOW Normal [facility] Comment on above: Result Comment: <100 mg/dl OPTIMAL 100 - 129 mg/dl NEAR OR ABOVE OPTIMAL 130 - 159 mg/dl BORDERLINE HIGH 160 - 189 mg/dl HIGH >190 mg/dl VERY HIGH Performed By: #### L IPID, CMP #### [facility] [address] [place] [address] Dr. Melinda Quintero Triglyceride [Mass/Vol] 71 mg/dL Normal <=150 [facility] Comment on above: Performed By: #### L IPID, CMP #### [facility] [address] [place] [address] Dr. Melinda Quintero VLDL CALC 14.2 mg/dL Normal [facility] Comment on above: Performed By: #### L IPID, CMP #### [facility] [address] [place] [address] Dr. Melinda Quintero MICROALBUMIN, RAND URon 12-01 mALB <1.3 Normal <=30.0 [facility] Comment on above: Performed By: #### M ALBR #### [facility] [address] [address] [address] Melinda Quintero PROF 14(COMP METB)on 022 Albumin [Mass/Vol] 3.8 g/dL Normal 3.4-5.0 [facility] Comment on above: Performed By: #### L IPID, CMP #### [facility] [address] [place] [address] Dr. Melinda Quintero Albumin/Globulin [Mass ratio] 1.1 {ratio} Normal [facility] Comment on above: Performed By: #### L IPID, CMP #### [facility] [address] [place] [address] Dr. Melinda Quintero ALP [Catalytic activity/Vol] 74 U/L Normal 46-116 [facility] Comment on above: Performed By: #### L IPID, CMP #### [facility] [address] [address] [address] Melinda Quintero ALT [Catalytic activity/Vol] 35 U/L Normal 16-63 [facility] Comment on above: Performed By: #### L IPID, CMP #### [facility] [address] [place] [address] Dr. Melinda Quintero Anion gap [Moles/Vol] 9.1 mmol/L Normal [facility] Comment on above: Performed By: #### L IPID, CMP #### [facility] [address] [place] [address] Dr. Melinda Quintero AST [Catalytic activity/Vol] 21 U/L Normal 15-37 [facility] Comment on above: Performed By: #### L IPID, CMP #### [facility] [address] [place] [address] Dr. Melinda Quintero Bilirubin [Mass/Vol] 0.8 mg/dL Normal 0.2-1.0 [facility] Comment on above: Performed By: #### L IPID, CMP #### [facility] [address] [place] [address] Dr. Melinda Quintero Calcium [Mass/Vol] 9.1 mg/dL Normal 8.5-10.1 [facility] Comment on above: Performed By: #### L IPID, CMP #### [facility] [address] [place] [address] Dr. Melinda Quintero Chloride [Moles/Vol] 102 mmol/L Normal 98-107 [facility] Comment on above: Performed By: #### L IPID, CMP #### [facility] [address] [place] [address] Dr. Melinda Quintero CO2 [Moles/Vol] 30.0 mmol/L Normal 21.0-32.0 [facility] Comment on above: Performed By: #### L IPID, CMP #### [facility] [address] [place] [address] Dr. Melinda Quintero Creatinine [Mass/Vol] 0.90 mg/dL Normal 0.70-1.30 [facility] Comment on above: Performed By: #### L IPID, CMP #### [facility] [address] [place] [address] Dr. Melinda Quintero EGFR-AF ALBANIAN >60 Normal >=60 [facility] Comment on above: Performed By: #### L IPID, CMP #### [facility] [address] [place] [address] Dr. Melinda Quintero EGFR-NON AF ALBANIAN >60 Normal >=60 [facility] Comment on above: Performed By: #### L IPID, CMP #### [facility] [address] [place] [address] Dr. Melinda Quintero Globulin (S) [Mass/Vol] 3.4 g/dL Normal [facility] Comment on above: Performed By: #### L IPID, CMP #### [facility] [address] [place] [address] Dr. Melinda Quintero Glucose [Mass/Vol] 116 mg/dL Critically high 74-106 [facility] Comment on above: Performed By: #### L IPID, CMP #### [facility] [address] [address] [address] Melinda Quintero Potassium [Moles/Vol] 4.1 mmol/L Normal 3.5-5.1 [facility] Comment on above: Performed By: #### L IPID, CMP #### [facility] [address] [place] [address] Dr. Melinda Quintero Protein [Mass/Vol] 7.2 g/dL Normal 6.4-8.2 [facility] Comment on above: Performed By: #### L IPID, CMP #### [facility] [address] [place] [address] Dr. Melinda Quintero Sodium [Moles/Vol] 137 mmol/L Normal 136-145 [facility] Comment on above: Performed By: #### L IPID, CMP #### [facility] [address] [address] [address] Melinda Quintero Urea nitrogen [Mass/Vol] 21.0 mg/dL Critically high 7.0-18.0 [facility] Comment on above: Performed By: #### L IPID, CMP #### [facility] [address] [address] [address] Melinda Quintero Urea nitrogen/Creatinine [Mass ratio] 23.3 mg/mg Normal [facility] Comment on above: Performed By: #### L IPID, CMP #### [facility] [address] [place] [address] Dr. Melinda Quintero VITAMIN B12on 12-17-2021 Cobalamin (Vitamin B12) [Mass/Vol] 438.0 pg/mL Normal 193.0-986.0 [facility] Comment on above: Performed By: #### V ITB12 #### [facility] [address] [place] [address] Dr. Melinda Quintero KHADRA Antinuclear Antibodieson 07-17-2021 Antinuclear Abs, IFA Negative Normal . [facility] Comment on above: Result Comment: Nega tive <1:80 Borderline 1:80 Positive >1:80 ICAP nomenclature: AC-0 For more information about Hep-2 cell patterns use ANApatterns.org, the official website for the International Consensus on Antinuclear Antibody (KHADRA) Patterns (ICAP). Performed at: - [facility] [address] [id number] [employer] Supervisor: Srikanth Hummel PhD, Phone: [phone] PERFORMED BY: [place] [address] PATHOLOGIST MANUFACTURING ENGINEERING TECHNOLOGIST PARRISH TREVIZO M.D. Performed By: #### P TH, ESR, CMP, CRP, CBC, TSH3 #### [place] [address] [place] #### KHADRA #### [facility] , C-Reactive Proteinon 021 C-Reactive Protein 0.5 mg/dL Normal 0.0-1.0 [facility] Comment on above: Performed By: #### P TH, ESR, CMP, CRP, CBC, TSH3 #### [address] #### KHADRA #### [facility] , Complete Blood Count Auto Di ffon 07-17-2021 Basophils (Bld) [#/Vol] 0.1 10*3/uL Normal 0.0-0.2 [facility] Comment on above: Performed By: #### P TH, ESR, CMP, CRP, CBC, TSH3 #### [address] #### KHADRA #### [facility] , Basophils/100 WBC (Bld) 1.0 % Normal . [facility] Comment on above: Performed By: #### P TH, ESR, CMP, CRP, CBC, TSH3 #### [place] [address] [place] #### KHADRA #### [facility] , Eosinophils (Bld) [#/Vol] 0.2 10*3/uL Normal 0.0-0.45 [facility] Comment on above: Performed By: #### P TH, ESR, CMP, CRP, CBC, TSH3 #### [facility] [address] [place] [address] [place] #### KHADRA #### [facility] , Eosinophils/100 WBC (Bld) 2.8 % Normal . [facility] Comment on above: Performed By: #### P TH, ESR, CMP, CRP, CBC, TSH3 #### [place] [address] [place] #### KHADRA #### [facility] , Erythrocyte distribution width (RBC) [Ratio] 15.4 % High 12.0-14.8 [facility] Comment on above: Performed By: #### P TH, ESR, CMP, CRP, CBC, TSH3 #### [facility] [address] [place] [address] [place] #### KHADRA #### [facility] , Hematocrit (Bld) [Volume fraction] 45.9 % Normal 38.8-50.0 [facility] Comment on above: Performed By: #### P TH, ESR, CMP, CRP, CBC, TSH3 #### [place] [address] [place] #### KHADRA #### [facility] , Hemoglobin (Bld) [Mass/Vol] 15.1 g/dL Normal 13.0-17.0 [facility] Comment on above: Performed By: #### P TH, ESR, CMP, CRP, CBC, TSH3 #### [place] [address] [place] #### KHADRA #### [facility] , Lymphocytes (Bld) [#/Vol] 1.8 10*3/uL Normal 1.00-4.8 [facility] Comment on above: Performed By: #### P TH, ESR, CMP, CRP, CBC, TSH3 #### [address] #### KHADRA #### [facility] , Lymphocytes/100 WBC (Bld) 24.5 % Normal . [facility] Comment on above: Performed By: #### P TH, ESR, CMP, CRP, CBC, TSH3 #### [place] [address] [place] #### KHADRA #### [facility] , MCH (RBC) [Entitic mass] 31.2 pg Normal 27.5-35.2 [facility] Comment on above: Performed By: #### P TH, ESR, CMP, CRP, CBC, TSH3 #### [place] [address] [place] #### KHADRA #### [facility] , MCV (RBC) [Entitic vol] 94.6 fL Normal 83.5-101 [facility] Comment on above: Performed By: #### P TH, ESR, CMP, CRP, CBC, TSH3 #### [place] [address] [place] #### KHADRA #### [facility] , Mean Corpuscular HGB Conc 32.9 g/dL Normal 32.5-35.6 [facility] Comment on above: Performed By: #### P TH, ESR, CMP, CRP, CBC, TSH3 #### [facility] [address] [place] [address] [place] #### KHADRA #### [facility] , Monocytes (Bld) [#/Vol] 0.7 10*3/uL Normal 0.0-0.8 [facility] Comment on above: Performed By: #### P TH, ESR, CMP, CRP, CBC, TSH3 #### [place] [address] [place] #### KHADRA #### [facility] , Monocytes/100 WBC (Bld) 10.1 % Normal . [facility] Comment on above: Performed By: #### P TH, ESR, CMP, CRP, CBC, TSH3 #### [facility] [address] [place] [address] [place] #### KHADRA #### [facility] , Neutrophils (Bld) [#/Vol] 4.5 10*3/uL Normal 1.8-7.7 [facility] Comment on above: Performed By: #### P TH, ESR, CMP, CRP, CBC, TSH3 #### [facility] [address] [place] [address] [place] #### KHADRA #### [facility] , Neutrophils/100 WBC (Bld) 61.6 % Normal . [facility] Comment on above: Performed By: #### P TH, ESR, CMP, CRP, CBC, TSH3 #### [facility] [address] [place] [address] [place] #### KHADRA #### [facility] , Nucleated RBC/100 WBC (Bld) [Ratio] 0.0 % Normal 0-0.5 [facility] Comment on above: Performed By: #### P TH, ESR, CMP, CRP, CBC, TSH3 #### [facility] [address] [place] [address] [place] #### KHADRA #### [facility] , Platelet mean volume (Bld) [Entitic vol] 9.5 fL Normal 6.6-10.1 [facility] Comment on above: Performed By: #### P TH, ESR, CMP, CRP, CBC, TSH3 #### [place] [address] [place] #### KHADRA #### [facility] , Platelets (Bld) [#/Vol] 192 10*3/uL Normal 150-450 [facility] Comment on above: Performed By: #### P TH, ESR, CMP, CRP, CBC, TSH3 #### [place] [address] [place] #### KHADRA #### [facility] , RBC (Bld) [#/Vol] 4.85 10*6/uL Normal 3.90-5.60 [facility] Comment on above: Performed By: #### P TH, ESR, CMP, CRP, CBC, TSH3 #### [place] [address] [place] #### KHADRA #### [facility] , WBC (Bld) [#/Vol] 7.4 10*3/uL Normal 4.5-11.0 [facility] Comment on above: Performed By: #### P TH, ESR, CMP, CRP, CBC, TSH3 #### [place] [address] [place] #### KHADRA #### [facility] , Comprehensive Metabolic Pane tristan 07-17-2021 Albumin [Mass/Vol] 4.0 g/dL Normal 3.2-5.5 [facility] Comment on above: Performed By: #### P TH, ESR, CMP, CRP, CBC, TSH3 #### [facility] [address] [place] [address] [place] #### KHADRA #### [facility] , Albumin/Globulin [Mass ratio] 1.4 {ratio} Normal [facility] Comment on above: Performed By: #### P TH, ESR, CMP, CRP, CBC, TSH3 #### [facility] [address] [place] [address] #### KHADRA #### [facility] , ALP [Catalytic activity/Vol] 70 U/L Normal 32-92 [facility] Comment on above: Performed By: #### P TH, ESR, CMP, CRP, CBC, TSH3 #### [place] [address] [place] #### KHADRA #### [facility] , ALT [Catalytic activity/Vol] 27 U/L Normal 10-60 [facility] Comment on above: Performed By: #### P TH, ESR, CMP, CRP, CBC, TSH3 #### [facility] [address] [place] [address] [place] #### KHADRA #### [facility] , AST [Catalytic activity/Vol] 26 U/L Normal 10-42 [facility] Comment on above: Performed By: #### P TH, ESR, CMP, CRP, CBC, TSH3 #### [facility] [address] [place] [address] [place] #### KHADRA #### [facility] , Bilirubin [Mass/Vol] 0.8 mg/dL Normal 0.3-1.2 [facility] Comment on above: Performed By: #### P TH, ESR, CMP, CRP, CBC, TSH3 #### [facility] [address] [place] [address] [place] #### KHADRA #### [facility] , Calcium [Mass/Vol] 9.4 mg/dL Normal 8.2-10.2 [facility] Comment on above: Performed By: #### P TH, ESR, CMP, CRP, CBC, TSH3 #### [facility] [address] [place] [address] [place] #### KHADRA #### [facility] , Chloride [Moles/Vol] 103 mmol/L Normal 95-114 [facility] Comment on above: Performed By: #### P TH, ESR, CMP, CRP, CBC, TSH3 #### [address] #### KHADRA #### [facility] , CO2 [Moles/Vol] 26.2 mmol/L Normal 22.0-30.0 [facility] Comment on above: Performed By: #### P TH, ESR, CMP, CRP, CBC, TSH3 #### [facility] [address] [place] [address] [place] #### KHADRA #### [facility] , Creatinine [Mass/Vol] 0.80 mg/dL Normal 0.64-1.27 [facility] Comment on above: Performed By: #### P TH, ESR, CMP, CRP, CBC, TSH3 #### [place] [address] [place] #### KHADRA #### [facility] , Estimated GFR ( [place] > 60 Normal [facility] Comment on above: Result Comment: GFR estimated reference range: According to KDOQI guidelines, <60 ml/min/1.73m2 is sufficient to diagnose a patient with chronic kidney disease. Performed By: #### P TH, ESR, CMP, CRP, CBC, TSH3 #### [facility] [address] [place] [address] [place] #### KHADRA #### [facility] , Estimated GFR (Non- Am > 60 Normal [facility] Comment on above: Performed By: #### P TH, ESR, CMP, CRP, CBC, TSH3 #### [facility] [address] [place] [address] [place] #### KHADRA #### [facility] , Globulin (S) [Mass/Vol] 2.9 g/dL Normal [facility] Comment on above: Performed By: #### P TH, ESR, CMP, CRP, CBC, TSH3 #### [place] [address] [place] #### KHADRA #### [facility] , Glucose [Mass/Vol] 95 mg/dL Normal 70-100 [facility] Comment on above: Result Comment: [place] Glucose Reference Range is dependent on time and content of last meal. Glucose of more than 200 mg/dL in a nonstressed, ambulatory subject supports the diagnosis of Diabetes Mellitus. ADA recommended reference range Performed By: #### P TH, ESR, CMP, CRP, CBC, TSH3 #### [place] [address] [place] #### KHADRA #### [facility] , Potassium [Moles/Vol] 4.3 mmol/L Normal 3.5-5.1 [facility] Comment on above: Performed By: #### P TH, ESR, CMP, CRP, CBC, TSH3 #### [place] [address] [place] #### KHADRA #### [facility] , Protein [Mass/Vol] 6.9 g/dL Normal 6.1-7.9 [facility] Comment on above: Performed By: #### P TH, ESR, CMP, CRP, CBC, TSH3 #### [place] [address] [place] #### KHADRA #### [facility] , Sodium [Moles/Vol] 139 mmol/L Normal 136-146 [facility] Comment on above: Performed By: #### P TH, ESR, CMP, CRP, CBC, TSH3 #### [facility] [address] [place] [address] #### KHADRA #### [facility] , Urea nitrogen [Mass/Vol] 16 mg/dL Normal 9-23 [facility] Comment on above: Performed By: #### P TH, ESR, CMP, CRP, CBC, TSH3 #### [facility] [address] [place] [address] #### KHADRA #### [facility] , Erythrocyte Sedimentation Ra karla 07-17-2021 ESR (Bld) [Velocity] 21 mm/h High 0-19 [facility] Comment on above: Result Comment: PERF ORMED BY: [place] [address] PATHOLOGIST MANUFACTURING ENGINEERING TECHNOLOGIST PARRISH TREVIZO M.D. Performed By: #### P TH, ESR, CMP, CRP, CBC, TSH3 #### [address] #### KHADRA #### [facility] , Parathyroid Hormone Intacton 07-17-2021 Parathyroid Hormone Intact 56.3 pg/mL Normal 12-88 [facility] Comment on above: Result Comment: PERF ORMED BY: [place] [address] PATHOLOGIST MANUFACTURING ENGINEERING TECHNOLOGIST PARRISH TREVIZO M.D. Performed By: #### P TH, ESR, CMP, CRP, CBC, TSH3 #### [facility] [address] [place] [address] [place] #### KHADRA #### [facility] , Thyroid Stimulating Hormoneo n 07-17-2021 TSH Qn 3.24 m[IU]/L Normal 0.45-5.33 [facility] Comment on above: Performed By: #### P TH, ESR, CMP, CRP, CBC, TSH3 #### [address] #### KHADRA #### [facility] , XR hand BI 2Von 07-17-2021 XR hand BI 2V [facility] [place] [address] XRay Report Signed Patient: Pantera Del Cid MR#: [id number] 5 : 1955 Acct:[id number] Age/Sex: 66 / M ADM Date: 07/17/21 Loc: ICXD [facility]: [facility] Attending Dr: Michael Barrett MD Ordering Provider: Michael Barrett MD Date of Service: 07/17/21 XR/XR foot BI 2V: PAIN ([id number]) XR/XR hand BI 2V: PAIN Copies to: Michael Barrett MD 2 viewsboth theplain film COMPARISON:None HISTORY:Deformity of the hands. Swelling. Swelling of the feet. No acute bony findings identified. Marginal spurring of the midfoot present. Posterior and inferior calcaneal spurring identified. Mild soft tissue prominence seen. XR/XR foot BI 2V IMPRESSION:Bilateral foot degenerative changes and posterior inferior calcaneal spurring. Diffuse soft tissue prominence.. 2 views of both hands Mild to moderate interphalangeal degenerative changes identified. Extensive RIGHT 3rd metacarpal phalangeal degenerative changes identified. No fracture or dislocation. Diffuse soft tissue prominence. No bony erosive changes. No soft tissue calcification. IMPRESSION: Bilateral osteoarthritis. Impression dictated by: Chilango Mcclure M.D.07/17/2021 3:05 PM Dictation Location: [place] [address] Transcribed By: [facility] 07/17/21 1505 Dictated By: Chilango Mcclure DO 07/17/21 1502 Signed By: 07/17/21 1505 Normal [facility] XR wrist LT min 3V*on 2020 XR wrist LT min 3V* [facility] [place] [id number] XRay Report Signed Patient: Pantera Del Cid MR#: [id number] 5 : 1955 Acct:[id number] Age/Sex: 65 / M ADM Date: 01/14/21 Loc: XDUCLY Room: Type: [facility] Attending Dr: Smiley MONTES Ordering Provider: SMILEY GALINDO Date of Service: 01/14/21 XR/XR wrist LT min 3V*: Injury of left wrist, initial encounter Copies to: SMILEY GALINDO LEFT WRIST - 4 views COMPARISON: None CLINICAL DATA: Patient fell onto left wrist today and has medial anterior pain. AP, lateral, oblique and ulnar deviation views were obtained. There is osteopenia. No acute fracture or dislocation is identified. There is slight ulnar minus variance. There is mild sclerosis at the lunate and scaphoid. There is spurring at the heads of the first through fourth metacarpals. There is soft tissue calcification at the third and fourth metacarpal phalangeal joints as well as the radiocarpal and ulnocarpal joints that may be chondrocalcinosis. There is slight dorsal soft tissue swelling at the wrist. XR/XR wrist LT min 3V* IMPRESSION: OSTEOPENIA AND DEGENERATIVE CHANGES. NO OBVIOUS ACUTE BONY INJURY. Impression dictated by: Karla Denton M.D.01/14/2021 3:29 PM Dictation Location: [place] [address] Transcribed By: [facility] 01/14/21 1529 Dictated By: Karla Denton MD 01/14/21 1519 Signed By: 01/14/[address] [facility] Vital Signs Date Time Vital Sign Value Performing Clinician Facility 01-18-2024 14:47-0400 Diastolic blood pressure 72 mm[Hg] Yadiel Lacey MD Work Phone: [facility] 01-18-2024 14:47-0400 Heart rate 53 /min Yadiel Lacey MD Work Phone: [facility] 01-18-2024 14:47-0400 Systolic blood pressure 114 mm[Hg] Yadiel Lacey MD Work Phone: [facility] 01-18-2024 14:46-0400 Body height 182.9 cm Yadiel Lacey MD Work Phone: [facility] 01-18-2024 14:46-0400 Body mass index (BMI) [Ratio] 36.35 kg/m2 Yadiel Lacey MD Work Phone: [facility] 01-18-2024 14:46-0400 Body weight 121.56 kg Yadiel Lacey MD Work Phone: [facility] 05-07-2023 11:20-0400 Body height 182.88 cm Leandra Villalobos Other [employer] Other 05-07-2023 11:20-0400 Body mass index (BMI) [Ratio] 33.22 kg/m2 Leandra Villalobos Other [employer] Other 05-07-2023 11:20-0400 Body temperature 98.2 [degF] Leandra Villalobos Other [employer] Other 05-07-2023 11:20-0400 Body weight 111.13 kg Leandra Villalobos Other [employer] Other 05-07-2023 11:20-0400 Diastolic blood pressure 72 mm[Hg] Leandra Villalobos Other [employer] Other 05-07-2023 11:20-0400 Respiratory rate 18 /min Leandra Villalobos Other [employer] Other 05-07-2023 11:20-0400 SaO2% (BldA) [Mass fraction] 93 % Leandra Villalobos Other [employer] Other 05-07-2023 11:20-0400 Systolic blood pressure 118 mm[Hg] Leandra Villalobos Other [employer] Other Encounters Encounter Date Encounter Type Care Provider Facility Start: 02-16-2024 End: 02-16-2024 ambulatory SHAIKH DEION Not Available Start: 02-01-2024 End: 02-01-2024 ambulatory CHASIDY B APLING Not Available Start: 01-20-2024 End: 01-20-2024 ambulatory GISSELLE Vishnu MCGILL Not Available Start: 01-19-2024 End: 01-19-2024 ambulatory SHAIKH DEION Not Available Start: 01-18-2024 Encounter for preprocedural cardiovascular examination [facility] Start: 01-18-2024 End: 01-18-2024 Office consultation new/estab patient 60 min Yadiel Lacey MD Work Phone: [facility] Comment on above: Bilateral carotid ar leslie stenosis (Primary Dx); Preoperative cardiovascular examination; Essential hypertension; BMI 36.0-36.9,adult; Sinus bradycardia; Diabetes mellitus type II, non insulin dependent (Multi) Start: 01-18-2024 End: 01-18-2024 ambulatory [facility] Start: 01-18-2024 End: 01-18-2024 Encounter for preprocedural cardiovascular examination [facility] Start: 01-18-2024 End: 01-18-2024 Patient encounter status Yadiel Lacey MD Work Phone: [facility] Start: 01-04-2024 End: 01-04-2024 ambulatory CHASIDY B APLING Not Available Start: 12-23-2023 End: 12-23-2023 Evaluation and management of inpatient AMAN BECK [facility] Start: 12-03-2023 End: 12-03-2023 ambulatory SHAIKH DEION Not Available Start: 12-01-2023 End: 12-01-2023 ambulatory AMAN BECK Not Available Start: 11-25-2023 End: 11-25-2023 ambulatory VIKASH LYNCH Not Available Start: 11-23-2023 End: 11-23-2023 ambulatory RHIANNON BURR Not Available Start: 11-18-2023 End: 11-18-2023 ambulatory RHIANNON BURR Not Available Start: 11-17-2023 End: 11-17-2023 ambulatory AMAN BECK Not Available Start: 11-16-2023 End: 11-16-2023 ambulatory VIKASH LYNCH Not Available Start: 11-02-2023 End: 11-02-2023 ambulatory SHAIKH DEION Not Available Start: 05-07-2023 End: 05-07-2023 ambulatory Leandra Villalobos Other [employer] Other Start: 05-07-2023 Office outpatient vi sit 15 minutes Leandra Villalobos [facility] Start: 02-11-2022 End: 02-12-2022 ambulatory SHAIKH Enzo ALBARRAN Facility:[facility] Start: 12-17-2021 End: 12-18-2021 ambulatory SHAIKH Enzo ALBARRAN Facility:[facility] Procedures Date Procedure Procedure Detail Performing Clinician Start: 01-18-2024 Ecg routine ecg w/le ast 12 lds w/i&r Yadiel Lacey MD Work Phone: Plan of Treatment Date Care Activity Detail Author Start: 06-27-2025 DTaP/Tdap/Td Vaccines (2 - Td or Tdap) DTaP/Tdap/Td Vaccines (2 - Td or Tdap) [facility] Start: 04-03-2023 COVID-19 Vaccine ( season) COVID-19 Vaccine ( season) [facility] Start: 11-08-2021 Pneumococcal Vaccine: 65+ Years (2 of 2 - PCV) Pneumococcal Vaccine: 65+ Years (2 of 2 - PCV) [facility] Start: 2021 Abdominal aortic aneurysm screening Abdominal Aortic Aneurysm (AAA) Screening [facility] Start: 2016 RSV patients and/or patients aged 60+ years (1 - 1-dose 60+ series) RSV patients and/or patients aged 60+ years (1 - 1-dose 60+ series) [facility] Start: 2006 Zoster Vaccines (1 of 2) Zoster Vaccines (1 of 2) [facility] Start: 1975 Urine screening for protein Diabetes: Urine Protein Screening [facility] Start: 1974 Hepatitis C screening Hepatitis C Screening [facility] Start: 1966 Diabetic foot examination Diabetes: Foot Exam [facility] Start: 1966 Glaucoma screening Diabetes: Retinopathy Screening [facility] Start: 1956 Hemoglobin A1c measurement Diabetes: Hemoglobin A1C [facility] Start: 1956 Lipid panel Lipid Panel [facility] Start: 1956 Medicare Annual Wellness Visit Medicare Annual Wellness Visit (AWV) [facility] Start: 1956 Screening for malignant neoplasm of colon [facility] Immunizations Immunization Date Immunization Notes Care Provider Fa cili 06-24-2023 Influenza, Seasonal, Quadrivalent, Adjuvanted Yadiel Lacey MD Work Phone: [facility] Work Phone: 11-08-2020 pneumococcal polysaccharide vaccine, 23 valent Yadiel Lacey MD Work Phone: [facility] Work Phone: 05-12-2018 seasonal influenza, intradermal, preservative free Yadiel Lacey MD Work Phone: [facility] Work Phone: 07-09-2017 influenza, seasonal, injectable Leandra Villalobos Other [employer] Other 06-12-2016 seasonal influenza, intradermal, preservative free Yadiel Lacey MD Work Phone: [facility] Work Phone: 06-27-2015 tetanus toxoid, redu kurt diphtheria toxoid, and acellular pertussis vaccine, adsorbed Yadiel Lacey MD Work Phone: [facility] Work Phone: Payers Date Payer Category Payer Medicare MEDICARE MEDICAR E PART A AND B [id number] 2023-Present [address] [place] [address] [id number] 2023 Unknown [employer] [id number] 2023-Present [phone] [address] [place] [address] [id number] 2023 Unknown [id number] 2022 Unknown [id number] 2.16.8 [id number] 2021 Medicare [id number] 1959 Unknown [id number] 1956 Unknown [id number] 2.16.840.1.701517.3.579.2.593 1956 Unknown [id number] 2.16.840.1.919820.3.579.2.593 1956 Unknown [id number] 2.16.840.1.220411.3.579.2.128 6 1956 Unknown [id number] 2.16.840.1.551913.3.579.2.124 4 1956 Unknown [id number] 2.16.840.1.302158.3.579.2.125 9 1956 Unknown [id number] 2.16.840.1.633385.3.579.2.125 9 1956 Unknown [id number] 2.16.840.1.477803.3.579.2.125 9 1956 Unknown [id number] 2.16.840.1.319585.3.579.2.125 9 1956 Unknown [id number] 2.16.840.1.197159.3.579.2.125 9 1956 Unknown [id number] 2.16.840.1.511330.3.579.2.125 9 1956 Unknown [id number] 2.16.840.1.446045.3.579.2.125 9 1956 Unknown [id number] 2.16.840.1.495843.3.579.2.125 9 1956 Unknown [id number] 2.16.840.1.543230.3.579.2.125 9 1956 Unknown [id number] 2.16.840.1.450022.3.579.2.125 9 1956 Unknown [id number] 2.16.840.1.366339.3.579.2.125 9 1956 Unknown [id number] 2.16.840.1.943796.3.579.2.125 9 1956 Unknown [id number] 2.16.840.1.126627.3.579.2.125 9 1956 Unknown [id number] 2.16.840.1.908171.3.579.2.125 9 Medicare [id number] [id number] Social History Date Type Detail Facility Unknown if ever smoked [facility] Other Start: 01-18-2024 Sex Assigned At N [facility] Other Start: 01-18-2024 Tobacco smoking stat us KYIS Ex-smoker [facility] Work Phone: History of tobacco use Current smoker [facility] Work Phone: History of tobacco use Cigarette Smoker [facility] Work Phone: Start: 01-18-2024 Tobacco use and exposure Smokeless tobacco non-user [facility] Work Phone: Start: 01-18-2024 Alcoholic beverage intake Current drinker of alcohol (finding) [facility] Work Phone: Start: 01-18-2024 History of Social function [facility] Work Phone: Start: 1955 [facility] Start: 01-08-2024 End: 01-18-2024 Exposure to SARS-CoV-2 (event) Not sure [facility] History of Present illness Narrative 01-18-2024 Yadiel Lacey MD - 01/18/2024 2:30 PM EDT Note Date & Type Note Facility 01-18-2024 History of Present illness Narrative Cardiology Consultation- New Consult Reason for referral: Preoperative risk assessment for shoulder surgery HPI: Pantera Del Cid is a 68 y.o. male with no history of cardiac disease is being seen for preoperative risk assessment for shoulder surgery. Patient report history of hypertension, diabetes mellitus and carotid disease. He is scheduled to have a shoulder surgery. Patient denies any previous cardiac history. He denies any chest pain, palpitation, lightheadedness, dizziness or syncope. He was active till recently when he developed some gout. Reviewing the record indicate about 3 years ago he underwent stress test and echocardiogram both of them appears reassuring. Patient denies complaint of chest pain, palpitation, lightheadedness, dizziness or syncope. Assessment 1. Preoperative risk assessment for shoulder surgery. 2. History of hypertension controlled 3. History of carotid disease with previous carotid stenting according to him but the details lacking 4. BMI of 36 5. No previous history of coronary artery disease, congestive heart failure or valvular heart disease 6. Diabetes mellitus 7. Previous history of knee surgery 4 years ago without any cardiac issues or complication Plan 1. Based on lack of symptoms, recently good exercise tolerance and functional class I and based on no previous history of coronary artery disease and negative stress test and echocardiogram in the past I estimate his operative risk cardiac bennett less than 1-2% and the patient can proceed without any further testing 2. I discussed with him coronary risk factor modification 3. I advised him to discuss with his PCP the possibility of placing him on statin concerning his diabetic, hypertensive with history of carotid disease 4. Patient want to be seen in the future on as-needed basis Past Medical History: Hypertension, carotid disease, diabetes mellitus and morbid obesity Surgical History: He has a past surgical history that includes Carotid stent; Mouth surgery; Rotator cuff repair; Knee surgery; and Hand surgery. Family History: Family History Problem Relation Name Age of Onset Diabetes type I Mother Heart failure Mother Diabetes type I Brother Kidney disease Brother Social History: Social History Tobacco Use Smoking status: Former Types: Cigarettes Smokeless tobacco: Never Substance Use Topics Alcohol use: Yes Allergies: Penicillins Current Medications: Current Outpatient Medications: aspirin 81 mg chewable tablet, Chew 1 tablet (81 mg) once daily., Disp: , Rfl: clindamycin (Cleocin) 150 mg capsule, Take 1 capsule (150 mg) by mouth., Disp: , Rfl: hydroxychloroquine (Plaquenil) 200 mg tablet, Take 1 tablet (200 mg) by mouth 2 times a day., Disp: , Rfl: lisinopriL-hydrochlorothiazide 10-12.5 mg tablet, Take 1 tablet by mouth once daily., Disp: , Rfl: metFORMIN (Glucophage) 500 mg tablet, 1 tablet (500 mg) 2 times daily (morning and late afternoon)., Disp: , Rfl: sildenafil (Viagra) 50 mg tablet, Take 1 tablet (50 mg) by mouth once daily as needed., Disp: , Rfl: Vitals: Vitals: 01/18/24 1446 01/18/24 1447 BP: 114/74 114/72 BP Location: Right arm Left arm Patient Position: Sitting Sitting Pulse: 53 Weight: 122 kg (268 lb) Height: 1.829 m (6') EKG done in office today Review of Systems Neurological: Positive for dizziness. All other systems reviewed and are negative. Objective Physical Exam Constitutional: Appearance: Normal appearance. HENT: Nose: Nose normal. Neck: Vascular: No carotid bruit. Cardiovascular: Rate and Rhythm: Bradycardia present. Pulses: Normal pulses. Heart sounds: Normal heart sounds. Pulmonary: Effort: Pulmonary effort is normal. Abdominal: General: Bowel sounds are normal. Palpations: Abdomen is soft. Musculoskeletal: General: Normal range of motion. Cervical back: Normal range of motion. Right lower leg: No edema. Left lower leg: No edema. Skin: General: Skin is warm and dry. Neurological: General: No focal deficit present. Mental Status: He is alert. Psychiatric: Mood and Affect: Mood normal. Behavior: Behavior normal. Thought Content: Thought content normal. Judgment: Judgment normal. Assessment and Plan: 1. Bilateral carotid artery stenosis 2. Preoperative cardiovascular examination ECG 12 Lead 3. Essential hypertension 4. BMI 36.0-36.9,adult 5. Sinus bradycardia 6. Diabetes mellitus type II, non insulin dependent (Multi) Pantera Del Cid is clear for surgery from a cardiac standpoint Scribe Attestation By signing my name below, I, Mariajose Magdaleno LPN , Scribe attest that this documentation has been prepared under the direction and in the presence of Yadiel Lacey MD. Provider Attestation - Scribe documentation All medical record entries made by the Scribe were at my direction and personally dictated by me. I have reviewed the chart and agree that the record accurately reflects my personal performance of the history, physical exam, discussion and plan. documented in this encounter [facility] Work Phone: Instructions 01-18-2024 Patient InstructionsAttachments Note Date & Type Note Facility 01-18-2024 Instructions Mariajose Whitley LPN - 01/18/2024 2:30 PM EDT Please bring all medicines, vitamins, and herbal supplements with you when you come to the office. Prescriptions will not be filled unless you are compliant with your follow up appointments or have a follow up appointment scheduled as per instruction of your physician. Refills should be requested at the time of your visit. BMI was above normal measurement. Current weight: 122 kg (268 lb) Weight change since last visit (-) denotes wt loss 268 lbs Weight loss needed to achieve BMI 25: 84.1 Lbs Weight loss needed to achieve BMI 30: 47.3 Lbs Provided instructions on dietary changes Provided instructions on exercise Pantera Del Cid is clear for surgery from a cardiac standpoint Follow up ordered as needed only . The following attachments cannot be sent through Care Everywhere.DASH Diet (Danish)documented in this encounter [facility] Work Phone: Note 01-18-2024 Addendum Note - Yadiel Lacey MD - 01/18/2024 2:30 PM EDT Note Date & Type Note Facility 01-18-2024 Miscellaneous Notes Addended by: YADIEL LACEY on: 01/18/2024 04:19 PM Modules accepted: Level of Service documented in this encounter [facility] Work Phone: Clinical Note 01-18-2024 Addendum Note - Yadiel Lacey MD - 01/18/2024 2:30 PM EDT Note Date & Type Note Facility 01-18-2024 Note Addended by: YADIEL LINDSAY on: 01/18/2024 04:19 PM Modules accepted: Level of Service [facility] Work Phone: Evaluation note 05-07-2023 Note Date & Type Note Facility 05-07-2023 Evaluation note Encounter Date Diagnosis Assessment Notes May, Tinea pedis of left foot (ICD-10 - B35.3) Discussed with patient no signs of any cellulitis or gout. Is consistent with tinea pedis. We will treat with terbinafine. Use consistently for 2 to 3 weeks. Keep area clean and dry, change socks frequently. Avoid picking at or scratching at areas can cause secondary infection. Follow-up with PCP if not gradually improving over the next week or so. 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 Has not followed with PCP in a while. Is having some mild bilateral lower extremity edema. Random blood sugar stable at 111. Patient has follow-up appointment with PCP 05/21, advised to keep this appointment for regular lab work, etc. Discussed use of fwzl-wqu-navuaa r KELBY hose, elevation to help with lower extremity edema. Patient verbalized understanding. [employer] Other History general Narrative - Reported 12-02-2003 Note Date & Type Note Facility 12-02-2003 History general N arrative - Reported Type Medical History carotid artery stenosis Medical History Hypertension Medical History diabetes mallitus Surgical History rotator cuff tear repair Left Surgical History Left carotid endarterectomy Surgical History arthroscopic knee surgery right 1979 Surgical History knee replacement Hospitalization History see above Hospitalization History allerigic reaction to PC N [employer] Other Evaluation note Note Date & Type Note Facility Evaluation note Diagnosis Bilateral carotid artery stenosis- Primary Occlusion and stenosis of carotid artery without mention of cerebral infarction Preoperative cardiovascular examination Pre-operative cardiovascular examination Essential hypertension Unspecified essential hypertension BMI 36.0-36.9,adult Sinus bradycardia Other specified cardiac dysrhythmias Diabetes mellitus type II, non insulin dependent (Multi) Type II or unspecified type diabetes mellitus without mention of complication, not stated as uncontrolled documented in this encounter [facility] Work Phone: Summary Purpose Family History No Family History Records FoundNo Family History Records FoundNo Family History Records FoundNo Family History Records FoundNo Family History Records Found Advance Directives No Advanced Directives Records FoundNo Advanced Directives Records FoundNo Advanced Directives Records FoundNo Advanced Directives Records FoundNo Advanced Directives Records Found Reason for Referral Specialty Diagnoses / Procedures Referred By Contac t Referred To Contact Diagnoses Preoperative cardiovascular examination Procedures ECG 12 Lead Yadiel Lacey MD [address] [address], [address] [address] Referral ID Status Reason Start Date Expiration Date V isits Requested Visits Authorized [id number] Authorized 01/18/2024 01/17/2025 1 1 Additional Source Comments (unrecognized sect ion and content) No Status Records FoundNo Status Records FoundNo Status Records FoundNo Status Records FoundNo Status Records Found INFORMATION SOURCE (unrecogn ized section and content) DATE CREATED AUTHOR 09/16/2021 [facility] DATE CREATED AUTHOR AUTHOR'S ORGANIZ ATION 02/19/2022 [facility] DATE CREATED AUTHOR AUTHOR'S ORGANIZ ATION 12/25/2023 [facility] DATE CREATED AUTHOR AUTHOR'S ORGANIZ ATION 01/20/2024 [facility] DATE CREATED AUTHOR AUTHOR'S ORGANIZ ATION 02/20/2024 [facility] EPIC REASON FOR VISIT (unrecogniz ed section and content) Reason Comments Pre-op Clearance [facility] patriziau deber Specialty Diagnoses / Procedures Referred By Contmillicent t Referred To Contact Diagnoses Preoperative cardiovascular examination Procedures ECG 12 Lead Yadiel Lacey MD [address] [facility] [address] [place] [address] Referral ID Status Reason Start Date Expiration Date V isits Requested Visits Authorized [id number] Authorized 01/18/2024 01/17/2025 1 1 Care Teams (unrecognized sec tion and content) Director Market Intelligence Relationship Specialty Start Date End Date Jacob Espinal MD [address] [facility] [address] [place] [address] PCP - General Internal Medicine 01/18/24 FOR RECORDS PERTAINING TO PATIENTS WHO ARE OR HAVE BEEN ENROLLED IN A CHEMICAL DEPENDENCY/SUBSTANCEABUSE PROGRAM, SOME INFORMATION MAY BE OMITTED. This clinical summary was aggregated from multiple sources. Caution should be exercised in using it in the provision of clinical care. This summary normalizes information from multiple sources, and as a consequence, information in this document may materially change the coding, format and clinical context of patient data. In addition, data may be omitted in some cases. CLINICAL DECISIONS SHOULD BE BASED ON THE PRIMARY CLINICAL RECORDS. [facility] provides no warranty or guarantee of the accuracy or completeness of information in this document.
== END 2024-02-26 10:42 | disposition home or self-care (01) ==
LOC: VC 09:55
PROVIDERS: PCP Radiology Diagnostic Radiology; Visit Provider Radiology Diagnostic Radiology
DX: I83.813 Varicose veins of bilateral lower extremities with pain (principal)
CPT/HCPCS: 36478

== ENCOUNTER 2024-03-04 09:10 | Outpatient (OUT) | payer MEDICARE, OTHER, SELFPAY ==
[2024-03-04 09:10] VITALS: BP 158/78; PULSE 70; O2SAT 99; BMI 35.7
--- NOTE | 2024-03-04 09:10 | VEINCLINIC_ITS ---
Vital Signs 03/04/24 09:10 Height 5 ft 10 in Weight 113 kg BMI 35.7 BP 158/78 H BP Location Right Brachial BP Position Sitting BP Cuff Size Adult BP Source Manual Cuff Respiration 16 Pulse 70 Pulse Oximetry (%) 99 Comment The patient's blood pressure is elevated. Varicose Veins Patient in this day for follow up ultrasound post EVLT of left GSV. Isaías Flores MD personally performed the services described in this documentation, as scribed by Aliyah Noe RVT, RDMS in my presence and it is both accurate and complete. Aliyah Flores RVT, RDMS, am scribing for, and in the presence of, Dr. Isaías Quintero and in the presence of the patient. thigh: bilateral (Bilateral leg veins symptoms left>right), knee: bilateral, calf: bilateral and ankle: bilateral aching, burning, cramping and dull 4 10 years Worsened in recent months: Yes standing elevating extremities and compression stockings Reports heaviness, limb pain, edema and leg edema History of lower extremity trauma: No Superficial thrombophlebitis: No Family history of varicose veins: yes Has patient had previous lower extremity venous surgery: No Patient has previously received the following treatment(s) for lower extremity varicose veins: Reports none Does patient have a history of : not applicable Has patient had lower extremity venous scan with relux testing: No Support hose used: Yes Problems walking or doing physical activity: Yes How does it affect you: often times have to stop and elevate feet/legs Do you walk much: Yes Do you stand much: Yes Review of Systems ROS Narrative Isaías Flores MD personally performed the services described in this documentation, as scribed by Aliyah Noe RVT, RDMS in my presence and it is both accurate and complete. Aliyah Flores RVT, RDMS, am scribing for, and in the presence of, Dr. Isaías Quintero and in the presence of the patient. Status of ROS 10 or more systems reviewed and unremark able except as noted in history and below Cardiovascular Reports: edema Integumentary/Breast Reports: redness and changes in skin color Hematologic/Lymphatic Reports: easy bruising and easy bleeding PFSH PFS Medical History (Updated 02/26/24 @ 12:39 by Ryder Flores) FH: total knee replacement ?Z82.69 - Family history of other diseases of the musculoskeletal system and connective tissue (ICD-10) Rotator cuff arthropathy ?M12.819 - Other specific arthropathies, not elsewhere classified, unspecified shoulder (ICD-10) Restless leg ?G25.81 - Restless legs syndrome (ICD-10) Gout ?M10.9 - Gout, unspecified (ICD-10) Type 2 diabetes mellitus ?E11.9 - Type 2 diabetes mellitus without complications (ICD-10) Peripheral neuropathy ?G62.9 - Polyneuropathy, unspecified (ICD-10) Hypertension ?I10 - Essential (primary) hypertension (ICD-10) Anxiety ?F41.9 - Anxiety disorder, unspecified (ICD-10) Hyperlipemia ?E78.5 - Hyperlipidemia, unspecified (ICD-10) Depression ?F32.A - Depression, unspecified (ICD-10) Arthritis ?M19.90 - Unspecified osteoarthritis, unspecified site (ICD-10) Phlebitis of superficial vein of left lower extremity ?I80.02 - Phlebitis and thrombophlebitis of superficial vessels of left lower extremity (ICD-10) Varicose veins of bilateral lower extremities with pain ?I83.813 - Varicose veins of bilateral lower extremities with pain (ICD-10) Surgical History (Updated 02/26/24 @ 12:39 by Ryder Flores) H/O heart artery stent ?Z95.5 - Presence of coronary angioplasty implant and graft (ICD-10) Family History (Updated 02/26/24 @ 12:40 by Ryder Flores) Other Family history of diabetes mellitus Family history of hypertension Varicose veins of bilateral lower extremities with pain Meds Home Medications and Allergies Home Medications ?Medication ?Instructions ?Recorded ?Confirmed ?Type atorvastatin 80 mg tablet 80 mg PO QPM 02/26/24 02/26/24 History hydroxychloroquine PO 02/26/24 History lisinopril 10 1 tab PO DAILY 02/26/24 02/26/24 History mg-hydrochlorothiazide 12.5 mg tablet magnesium oxide-magnesium amino cap PO 02/26/24 History acid chelate 300 mg capsule metformin 500 mg tablet 500 mg PO BID 02/26/24 02/26/24 History naproxen sodium 220 mg capsule 220 mg PO BID PRN pain 02/26/24 02/26/24 History (Aleve) Allergies Allergy/AdvReac Type Severity Reaction Status Date / Time amoxicillin [From Augmentin] Allergy Severe Difficulty Verified 02/19/24 15:40 Breathing clavulanic acid Allergy Severe Difficulty Verified 02/19/24 15:40 [From Augmentin] Breathing penicillamine Allergy Severe Anaphylaxis Verified 02/19/24 15:40 Penicillins Allergy Swelling Verified 02/26/24 12:43 of Lip/Tongue/Throat Exam Narrative Exam Narrative: IIsaías MD personally performed the services described in this documentation, as scribed by Aliyah Noe RVT, RDMS in my presence and it is both accurate and complete. IAliyah RVT, RDMS, am scribing for, and in the presence of, Dr. Isaías Quintero and in the presence of the patient. Constitutional Documenting provider has reviewed patient's vital signs: yes Common normals: oriented x3 Nutritional appearance: overweight Cardio Peripheral pulses: posterior tibial pulses present Extremity Common normals: normal capillary refill General: edema Right lower extremity: lower leg Right lower leg: inspection and palpation Left lower extremity: lower leg Left lower leg: inspection and palpation Neuro Common normals: oriented x3 Results Imaging Venous US: Radiologist's impression: The ultrasound demonstrates Heat induced thrombus visualized 1.6 cm from the SFJ. The heat induced thrombus is visualized from groin and extends to distal calf. Assessment and Plan Assessment and Plan (1) Phlebitis of superficial vein of left lower extremity: (2) Varicose veins of bilateral lower extremities with pain: Plan Patient in today for follow up ultrasound of lower extremity following treatment of EVLT of left leg GSV completed on 02/26/24. The plan is for the patient to return for Varithena/microfoam chemical ablation left leg.
--- NOTE | 2024-03-04 09:12 | VEIN_ITS ---
Patient Name: SUDHA HERR MR#: [id number] : 1955 Exam Date: 03/04/2024 Ordering Doctor: DR LAZARO BUTLER M.D. RADIOLOGY REPORT PROCEDURE: VC EXT VENOUS LT LIMITED COMPARISON: None. INDICATIONS: I80.02 - Phlebitis and thrombophlebitis of superficial ve... TECHNIQUE: Lower extremity nichols scale and Duplex Doppler evaluation of the deep venous system from the inguinal ligament through the calf veins. FINDINGS: REGION: Left lower extremity. THROMBI: Negative for DVT. Heat induced thrombus visualized 1.6 cm from the SFJ. The heat induced thrombus is visualized from groin and extends to distal calf. COMPRESSIBILITY: Non-compressible segments corresponding to thrombus FLOW: Areas of no flow corresponding to thrombus OTHER: CONCLUSION: 1. Successful post ablation occlusion of left great saphenous vein. Dictated by: Isaías Quintero M.D. on 03/04/2024 at 13:29 Approved by: Isaías Quintero M.D. on 03/04/2024 at 13:29
--- NOTE | 2024-03-04 09:12 | VEIN_ITS ---
Patient Name: SUDHA HERR MR#: [id number] : 1955 Exam Date: 03/04/2024 Ordering Doctor: DR LAZARO BUTLER M.D. RADIOLOGY REPORT PROCEDURE: FACILITY EST LMTD VEIN CENTER - OFFICE VISIT FOLLOW UP COMPARISON: None. PROGRESS NOTES: The patient reports improvement in leg symptoms. There has been interval reduction in varicosities. The patient has followed our recommendations to walk 20-30 minutes once or twice per day since the procedure. Physical exam demonstrates decrease in varicosities of the leg. Persistent varicosities are identified along the left leg. Review of the ultrasound performed the same day demonstrates occlusive thrombus extending throughout the treated vein(s), see separate report, consistent with a successful ablation. No thrombus extending into or beyond the saphenofemoral junction. The patient expressed a desire to proceed with treatment of remaining left leg varicosities. The patient was informed that treatment was a process and would require several procedures/sessions. VEIN/ Facility EST LMTD IMPRESSION: 1. Successful ablation of the left great saphenous vein(s). 2. Persistent varicose veins and bilateral lower extremity symptoms. PLAN: 1. Microfoam chemical ablation of left leg incompetent branch saphenous varicosities. Nurse notes, history and physical were reviewed and confirmed, see attached forms. The nurse was present throughout the physical exam and consultation Dictated by: Isaías Quintero M.D. on 03/04/2024 at 13:29 Approved by: Isaías Quintero M.D. on 03/04/2024 at 13:30
--- NOTE | 2024-03-04 09:14 | P.DS_ITS ---
Discharge Plan Discharge Disposition: Home, Self-Care Outpatient Diagnostics: VC INJ Foam Sclerosant WUTriny CROP OR GRAIN FARMWORKER (Routine) Timeframe: 2 Weeks Facility: [facility] - Location: Vein Center Ordered By: Demarco Fuentes Follow Up Appointments: 03/07/24 Print Language: Swedish
--- NOTE | 2024-03-04 09:14 | W.VEIN ---
Discharge Plan Discharge Disposition: Home, Self-Care Outpatient Diagnostics: VC INJ Foam Sclerosant WUTriny DIGITAL STRATEGY SPECIALIST (Routine) Timeframe: 2 Weeks Facility: [facility] - Location: Vein Center Ordered By: Demarco Fuentes Follow Up Appointments: 03/07/24 Print Language: Citizen Of [place]
== END 2024-03-04 09:43 | disposition home or self-care (01) ==
PROVIDERS: PCP Radiology Diagnostic Radiology; Visit Provider Radiology Diagnostic Radiology
DX: I80.02 Phlebitis and thrombophlebitis of superficial vessels of left lower extremity (principal)
CPT/HCPCS: 93971; G0463

== ENCOUNTER 2024-03-07 14:23 | Outpatient (OUT) | payer MEDICARE, OTHER, SELFPAY ==
--- NOTE | 2024-03-07 09:19 | VEIN_ITS ---
The [address] [address] Patient Name: SUDHA HERR MRN: [id number] date: 1955 Sex: M Assigned Patient Location: Current Patient Location: Accession/Order Number: [id number] Exam Date: 03/07/2024 14:28 Report Date: 03/08/2024 11:20 At the request of: LAZARO BUTLER Procedure: VC INJ Foam Sclerosant WUS DIRECTOR OF NEUROLOGY PROCEDURE: VC INJ Foam Sclerosant WUS DIRECTOR OF NEUROLOGY HISTORY: I 83.813 BILATERAL PAINFUL VERICOSE VEINS Pre-operative Diagnosis: CEAP class C4a venous insufficiency with pain, tenderness, edema and incompetent branch saphenous vein(s), chronic venous insufficiency left leg secondary to venous incompetence Post-operative Diagnosis: CEAP class C4a venous insufficiency with pain, tenderness, edema and incompetent branch saphenous vein(s), chronic venous insufficiency left leg secondary to venous incompetence Procedure Performed: 1. Ultrasound-guided microfoam chemical ablation with Varithenaregistered 2. Intraoperative ultrasound guidance Physician: Isaías Quintero M.D. Anesthesia: None Indications for Procedure: 68 year old male. Symptoms including lower extremity pain, swelling, dilated bulging veins for many years despite conservative medical therapy including medical compression stockings, exercise and analgesics. Prior procedures include endovenous laser ablation. Multiple incompetent varicosities of the left leg. Duplex scan showed reflux and enlarged diameters up to 6 mm. The patient underwent informed consent including management options where the complications of infection, bleeding, pain, and skin injury were discussed. Particular attention was spent discussing thrombus extension and deep vein thrombosis as well as the possibility of pulmonary embolus and treatment with oral or injectable blood thinners. Procedure: The patient walked to the procedure room. All applicable staff donned appropriate apparel. A procedure timeout was performed to confirm correct patient, correct extremity, correct procedure, and correct room set-up including presence of all applicable supplies, devices, and drugs. A duplex ultrasound, performed by myself confirmed the location and incompetence of branch saphenous varicosities and their course was marked on the skin together with the dilated tributaries. The extent of treatment of the vein and the associated varicosities was determined through ultrasound mapping. The skin was prepped and then punctured with a butterfly needle and advanced under ultrasound guidance. The Varithenaregistered canister was activated and the canister was primed and purged as required in the instructions for use. Varithenaregistered was drawn into a sterile syringe. Varithenaregistered was slowly administered at 0.5-1.0 cc/second with close observation by ultrasound of its course in the vessels. Total volume utilized was: 15 mL (4 mL into a 4 mm varicosity of the distal medial lower leg; 11 mL into a 6 mm varicosity of the proximal medial-anterior lower leg). Following administration of Varithenaregistered the leg was elevated and the patient was asked to repeatedly dorsiflex the ankle to limit flow of Varithenaregistered into perforating veins. Once appropriate spasm had been confirmed in the treated veins, the vascular catheter was removed from the leg and light pressure was applied over the puncture site for hemostasis. The common femoral and deep superficial veins were then evaluated for flow and compressibility prior to dressing placement. The lower extremity was kept elevated at 45 degrees above the horizontal and cording material was applied over the saphenous segments and tributaries to allow for eccentric compression over the target vessels including the targeted saphenous vein(s). A multilayer dressing was applied consisting of foam pads, coban and thigh-high 20-30 mm Hg compression elastic support hose were placed on the patient. The leg was lowered only after compression had been applied and the patient was immediately ambulatory. The patient ambulated 10 minutes under supervision and was without apparent concerns at time of release. Post-care instructions include advising patient to keep post-treatment bandages in place and dry for 48 hours, avoid extended periods of inactivity, avoid heavy exercise for one week, wear compression stockings on the treated leg continuously for two weeks, to walk daily for 10 minutes over the next month. The patient was instructed to take an anti-inflammatory medicine as needed and to follow up for color duplex scan of the Saphenous veins, the treated branch saphenous varicosities, the adjacent deep veins, and additional treatment within 7 days. PERSONNEL: ASTER Huston RDMS Electronically authenticated by: ISAÍAS QUINTERO Date: 03/08/2024 11:20
--- NOTE | 2024-03-07 12:04 | V.VEINS.HP ---
Vital Signs 03/07/24 13:07 03/07/24 14:40 Height 6 ft Weight 114.305 kg BP 120/64 BP Location Right Brachial BP Position Sitting BP Cuff Size Adult BP Source Manual Cuff Respiration 18 Pulse 64 Pulse Source Monitor Pulse Oximetry (%) 95 Oxygen Delivery Method Room Air Comment The patient's blood pressure is elevated. Varicose Veins Patient in this day for microfoam chemical ablation left leg. Isaías Flores MD personally performed the services described in this documentation, as scribed by Ryder Flores RN in my presence and it is both accurate and complete. Ryder Flores RN, am scribing for, and in the presence of, Dr. Isaías Quintero and in the presence of the patient. thigh: bilateral (Bilateral leg veins symptoms left>right), knee: bilateral, calf: bilateral and ankle: bilateral aching, burning, cramping and dull 4 10 years Worsened in recent months: Yes standing elevating extremities and compression stockings Reports heaviness, limb pain, edema and leg edema History of lower extremity trauma: No Superficial thrombophlebitis: No Family history of varicose veins: yes Has patient had previous lower extremity venous surgery: No Patient has previously received the following treatment(s) for lower extremity varicose veins: Reports none Does patient have a history of : not applicable Has patient had lower extremity venous scan with relux testing: No Support hose used: Yes Problems walking or doing physical activity: Yes How does it affect you: often times have to stop and elevate feet/legs Do you walk much: Yes Do you stand much: Yes Review of Systems ROS Narrative Isaías Flores MD personally performed the services described in this documentation, as scribed by Ryder Flores RN in my presence and it is both accurate and complete. Ryder Flores RN, am scribing for, and in the presence of, Dr. Isaías Quintero and in the presence of the patient. Status of ROS 10 or more systems reviewed and unremarkable except as noted in history and below Cardiovascular Reports: edema Integumentary/Breast Reports: redness and changes in skin color Hematologic/Lymphatic Reports: easy bruising and easy bleeding PFSH [facility] Medical History (Updated 02/26/24 @ 12:39 by Ryder Flores) FH: total knee replacement ?Z82.69 - Family history of other diseases of the musculoskeletal system and connective tissue (ICD-10) Rotator cuff arthropathy ?M12.819 - Other specific arthropathies, not elsewhere classified, unspecified shoulder (ICD-10) Restless leg ?G25.81 - Restless legs syndrome (ICD-10) Gout ?M10.9 - Gout, unspecified (ICD-10) Type 2 diabetes mellitus ?E11.9 - Type 2 diabetes mellitus without complications (ICD-10) Peripheral neuropathy ?G62.9 - Polyneuropathy, unspecified (ICD-10) Hypertension ?I10 - Essential (primary) hypertension (ICD-10) Anxiety ?F41.9 - Anxiety disorder, unspecified (ICD-10) Hyperlipemia ?E78.5 - Hyperlipidemia, unspecified (ICD-10) Depression ?F32.A - Depression, unspecified (ICD-10) Arthritis ?M19.90 - Unspecified osteoarthritis, unspecified site (ICD-10) Phlebitis of superficial vein of left lower extremity ?I80.02 - Phlebitis and thrombophlebitis of superficial vessels of left lower extremity (ICD-10) Varicose veins of bilateral lower extremities with pain ?I83.813 - Varicose veins of bilateral lower extremities with pain (ICD-10) Surgical History (Updated 02/26/24 @ 12:39 by Ryder Flores) H/O heart artery stent ?Z95.5 - Presence of coronary angioplasty implant and graft (ICD-10) Family History (Updated 02/26/24 @ 12:40 by Ryder Flores) Other Family history of diabetes mellitus Family history of hypertension Varicose veins of bilateral lower extremities with pain Meds Home Medications and Allergies Home Medications ?Medication ?Instructions ?Recorded ?Confirmed ?Type atorvastatin 80 mg tablet 80 mg PO QPM 02/26/24 02/26/24 History hydroxychloroquine PO 02/26/24 History lisinopril 10 1 tab PO DAILY 02/26/24 02/26/24 History mg-hydrochlorothiazide 12.5 mg tablet magnesium oxide-magnesium amino cap PO 02/26/24 History acid chelate 300 mg capsule metformin 500 mg tablet 500 mg PO BID 02/26/24 02/26/24 History naproxen sodium 220 mg capsule 220 mg PO BID PRN pain 02/26/24 02/26/24 History (Aleve) Allergies Allergy/AdvReac Type Severity Reaction Status Date / Time amoxicillin [From Augmentin] Allergy Severe Difficulty Verified 02/19/24 15:40 Breathing clavulanic acid Allergy Severe Difficulty Verified 02/19/24 15:40 [From Augmentin] Breathing penicillamine Allergy Severe Anaphylaxis Verified 02/19/24 15:40 Penicillins Allergy Swelling Verified 02/26/24 12:43 of Lip/Tongue/Throat Exam Narrative Exam Narrative: Isaías Flores MD personally performed the services described in this documentation, as scribed by Ryder Flores RN in my presence and it is both accurate and complete. IRyder RN, am scribing for, and in the presence of, Dr. Isaías Quintero and in the presence of the patient. Constitutional Documenting provider has reviewed patient's vital signs: yes Common normals: oriented x3 Nutritional appearance: overweight Cardio Peripheral pulses: posterior tibial pulses present Extremity Common normals: normal capillary refill General: edema Right lower extremity: lower leg Right lower leg: inspection and palpation Left lower extremity: lower leg Left lower leg: inspection and palpation Neuro Common normals: oriented x3 Assessment and Plan Assessment and Plan (1) Varicose veins of bilateral lower extremities with pain: Procedures Procedure Instructions Procedures Left leg microform chemical ablation/Varithena: Risks and benefits of the procedure were discussed at length and informed written consent was obtained.? Time-out procedure was performed and the correct patient and procedure were confirmed.? Staff present during time-out: Ryder Flores RN and Isaías Quintero MD.? Patient prepped and procedure performed in usual sterile fashion.? Patient was placed in Trendelenburg prior to Polidocanol/Varithena injections. Sclerosing Agent:?? 15cc 1% Polidocanol/Varithena Site Injected: Right Lecc varithena administered in to a 4mm varicose vein right mid medial lowerleg 15cc varithena administered in to a 6mm varicose vein right proximal anterior medial lower leg Number of Injections:? 2 The patient tolerated the procedure well without complication.? Hemostasis was obtained and thigh-high compression stocking was applied with foam pads.? Instructed patient to wear stocking for at least 96 hours and sleep with it and only remove for showering.? The patient was instructed to? wear stocking for 2 weeks.? Patient verbalizes understanding and states they will comply.? Patient was given post-procedure instructions. Patient was discharged in good condition.? Scheduled to undergo limited venous ultrasound and? exam on 03/15/2024. IIsaías MD personally performed the services described in this documentation, as scribed by Ryder Flores RN in my presence and it is both accurate and complete. IRyder RN, am scribing for, and in the presence of, Dr. Isaías Quintero and in the presence of the patient.
--- NOTE | 2024-03-07 13:06 | P.DS_ITS ---
Discharge Plan Discharge Disposition: Home, Self-Care Outpatient Diagnostics: VC Facility EST LMTD (Routine) Timeframe: 2 Weeks Facility: [facility] - Location: Vein Center Ordered By: Isaías Quintero VC EXT Venous LT Limited (Routine) Timeframe: 2 Weeks Facility: [facility] - Location: Vein Center Ordered By: Isaías Quintero Follow Up Appointments: 03/15/2024 Plan of Treatment: f/u examination with physician and left leg limited u/s Patient Instructions: Polidocanol (By injection) (Asclera, Varithena) Print Language: Pakistani Discharge Date/Time: 03/07/24 15:47
[2024-03-07 14:40] VITALS: BP 120/64; PULSE 64; O2SAT 95
== END 2024-03-07 15:47 | disposition home or self-care (01) ==
LOC: VC 14:23
PROVIDERS: PCP Radiology Diagnostic Radiology; Visit Provider Radiology Diagnostic Radiology
DX: I83.813 Varicose veins of bilateral lower extremities with pain (principal)
CPT/HCPCS: 36466

== ENCOUNTER 2024-03-17 10:55 | Outpatient (OUT) | payer MEDICARE, OTHER, SELFPAY ==
--- NOTE | 2024-03-17 11:01 | VEIN_ITS ---
Patient Name: SUDHA HERR MR#: [id number] : 1955 Exam Date: 03/17/2024 Ordering Doctor: DR GISSELLE QUINTERO M.D. RADIOLOGY REPORT PROCEDURE: VC EXT VENOUS LT LIMITED COMPARISON: VC EXT VENOUS LT LIMITED, 03/04/2024. INDICATIONS: I80.02 - Phlebitis and thrombophlebitis of superficial veins left leg TECHNIQUE: Lower extremity nichols scale and Duplex Doppler evaluation of the deep venous system from the inguinal ligament through the calf veins. FINDINGS: REGION: Left lower extremity. THROMBI: Positive for DVT. Chemically induced thrombus in multiple varicose veins left leg. Thrombus extends through two perforators into PTV proximal-distal. Thrombus is approximately 6.0 cm from SPJ. COMPRESSIBILITY: Non-compressible segments corresponding to thrombus FLOW: Areas of no flow corresponding to thrombus OTHER: No significant varicose veins remain. CONCLUSION: 1. Successful post ablation occlusion of treated left leg branch saphenous varicosities. 2. Thrombus extended into the posterior tibial veins (deep vein thrombus). Patient will be treated with Xarelto. Dictated by: Gisselle Quintero M.D. on 03/17/2024 at 11:30 Approved by: Gisselle Quintero M.D. on 03/17/2024 at 12:05
--- NOTE | 2024-03-17 11:01 | VEIN_ITS ---
Patient Name: SUDHA HERR MR#: [id number] : 1955 Exam Date: 03/17/2024 Ordering Doctor: DR GISSELLE MORA M.D. RADIOLOGY REPORT PROCEDURE: [facility] EST LMTD VEIN CENTER - OFFICE VISIT FOLLOW UP [facility] PROGRESS NOTES: The patient reports improvement in leg symptoms. There has been interval reduction in varicosities. The patient has followed our recommendations to walk 20-30 minutes once or twice per day since the procedure. Physical exam demonstrates decrease in varicosities of the leg. No residual superficial varicosities within the left leg Review of the ultrasound performed the same day demonstrates occlusive thrombus extending throughout the treated vein(s), see separate report, consistent with a successful ablation. Positive thrombus within proximal through distal posterior tibial veins. The patient expressed a desire to wait on treatment of right leg until left leg is feeling better. The patient was informed that he has developed thrombus within the posterior tibial veins (deep vein thrombus). VEIN/[facility] EST LMTD IMPRESSION: 1. Successful ablation of the left leg treated branch saphenous vein(s). No remaining varicosities in need of treatment within left leg. 2. Deep vein thrombus throughout the left posterior tibial veins. PLAN: 1. Patient will be placed on Xarelto 15 mg twice a day for 21 days. Follow-up ultrasound in 2 weeks. 2. When patient is ready we will began treatment of right leg. Nurse notes, history and physical were reviewed and confirmed, see attached forms. The nurse was present throughout the physical exam and consultation Dictated by: Gisselle Mora M.D. on 03/17/2024 at 12:05 Approved by: Gisselle Mora M.D. on 03/17/2024 at 12:09
--- OUTSIDE RECORDS SUMMARY | 2024-03-17 11:16 | XMS_ITS | CCD ---
Author Organization [facility] Care Team Providers Care Electronic Data Processing Auditor Name Role Phone FAROMI, PULIDO H Admitting Unavailable FAWWAD, PULIDO H Primary Care Unavailable FAWSHAHANA, PULIDO H Consulting Unavailable DEION, PULIDO H Attending Unavailable DEION, PULIDO H Primary Care Unavailable PAVEL, DR GONZALEZ Admitting Unavailable PAVEL, DR GONZALEZ Consulting Unavailable PAVEL, DR GONZALEZ Attending Unavailable Leandra Villalobos Unavailable AMAN BECK Admitting Unavailable AMAN BECK Attending Unavailable MAAN BECK Referring Unavailable BEV HERNANDEZ Primary Care Unavailable Jacob Espinal MD Primary Care Provider YADIEL LACEY Attending Unavailable JACOB ESPINAL Primary Care Unavailable DEION, PULIDO Attending Unavailable VIKASH LYNCH Attending Unavailable DEION, PULIDO Referring Unavailable AMAN BECK Attending Unavailable AMAN EBCK Referring Unavailable RHIANNON BURR Attending Unavailable DARIELD, [...] (1 source) Penicillin Drug Allergy 0 The Repository (1 source) Penicillin G Drug Allergy anaphylaxis [employer] Other (3 sources) Penicillins; Translations: [PENICILLINS] Propensity [...] 01-18-2024 Mild sinus bradycardia nonspecific ST-T changes [facility] Work Phone: Glucose - FINGER STICKon Glucose [Mass/Vol] 111 mg/dL Digitiliti Other CBC AUTO DIFFon 02-11-2022 BASO # 0.0 103/ul Normal 0.0-0.1 [facility] Comment on above: Performed By: #### C BC #### Laboratory [address] [place] [address] Dr. Melinda Quintero Basophils/100 WBC (Bld) 0.7 % Normal 0.2-2.0 [facility] Comment on above: Performed By: #### C BC #### Laboratory [address] [place] [address] Dr. Melinda Quintero EO # 0.2 103/ul Normal 0.0-0.7 [facility] Comment on above: Performed By: #### C BC #### Laboratory [address] [place] [address] Dr. Melinda Quintero Eosinophils/100 WBC (Bld) 2.6 % Normal 0.9-7.0 [facility] Comment on above: Performed By: #### C BC #### Laboratory [address] [place] [address] Dr. Melinda Quintero Erythrocyte distribution width (RBC) [Ratio] 13.5 % Normal 11.0-15.0 [facility] Comment on above: Performed By: #### C BC #### Laboratory [address] [place] [address] Dr. Melinda Quintero Hematocrit (Bld) [Volume fraction] 44.3 % Normal 42.0-54.0 [facility] Comment on above: Performed By: #### C BC #### Laboratory [address] [place] [address] Dr. Melinda Quintero Hemoglobin (Bld) [Mass/Vol] 14.8 g/dL Normal 14.0-18.0 [facility] Comment on above: Performed By: #### C BC #### Laboratory [address] [place] [address] Dr. Melinda Quintero IG # 0.02 10e3/ul Normal 0.00-0.03 [facility] Comment on above: Performed By: #### C BC #### Laboratory [address] [place] [address] Dr. Melinda Quintero IG % 0.3 % Normal 0.0-0.5 The Comment on above: Performed By: #### C BC #### Laboratory [address] [place] [address] Dr. Melinda Quintero LYMPH # 1.3 103/ul Normal 1.2-3.8 The Comment on above: Performed By: #### C BC #### Laboratory [address] [place] [address] Dr. Melinda Quintero Lymphocytes/100 WBC (Bld) 20.9 % Normal 20.5-60.0 [facility] Comment on above: Performed By: #### C BC #### Laboratory [address] [place] [address] Dr. Melinda Quintero MANUAL DIFF REQ NO Normal [facility] Comment on above: Performed By: #### C BC #### Laboratory [address] [place] [address] Dr. Melinda Quintero MCH (RBC) [Entitic mass] 32.5 pg Normal 25.9-34.0 [facility] Comment on above: Performed By: #### C BC #### Laboratory [address] [place] [address] Dr. Melinda Quintero MCHC (RBC) [Mass/Vol] 33.4 g/dL Normal 29.9-35.2 The Comment on above: Performed By: #### C BC #### Laboratory [address] [place] [address] Dr. Melinda Quintero MCV (RBC) [Entitic vol] 97.4 fL Critically high 80.0-94.0 [facility] Comment on above: Performed By: #### C BC #### Laboratory [address] [place] [address] Dr. Melinda Quintero MONO # 0.9 103/ul Critically high 0.3-0.8 [facility] Comment on above: Performed By: #### C BC #### Laboratory [address] [place] [address] Dr. Melinda Quintero Monocytes/100 WBC (Bld) 14.4 % Critically high 1.7-12.0 [facility] Comment on above: Performed By: #### C BC #### Laboratory [address] [place] [address] Dr. Melinda Quintero NEUT # 3.7 103/ul Normal 1.4-6.5 The Comment on above: Performed By: #### C BC #### Laboratory [address] [place] [address] Dr. Melinda Quintero Neutrophils/100 WBC (Bld) 61.1 % Normal 43.0-75.0 The Comment on above: Performed By: #### C BC #### Laboratory [address] [place] [address] Dr. Melinda Quintero Platelet mean volume (Bld) [Entitic vol] 11.1 fL Normal 9.5-13.5 [facility] Comment on above: Performed By: #### C BC #### Laboratory [address] [place] [address] Dr. Melinda Quintero PLT 168 103/ul Normal 150-450 [facility] Comment on above: Performed By: #### C BC #### Laboratory [address] [place] [address] Dr. Melinda Quintero RBC 4.55 106/ul Critically low 4.70-6.10 [facility] Comment on above: Performed By: #### C BC #### Laboratory [address] [place] [address] Dr. Melinda Quintero WBC 6.1 103/ul Normal 4.0-11.0 [facility] Comment on above: Performed By: #### C BC #### Laboratory [address] [place] [address] Dr. Melinda Quintero PROF 14(COMP METB)on 022 Albumin [Mass/Vol] 3.6 g/dL Normal 3.4-5.0 [facility] Comment on above: Performed By: #### C MP #### Laboratory [address] [place] [address] Dr. Melinda Quintero Albumin/Globulin [Mass ratio] 1.0 {ratio} Normal [facility] Comment on above: Performed By: #### C MP #### Laboratory [address] [place] [address] Dr. Melinda Quintero ALP [Catalytic activity/Vol] 73 U/L Normal 46-116 The Comment on above: Performed By: #### C MP #### Laboratory [address] [place] [address] Dr. Melinda Quintero ALT [Catalytic activity/Vol] 35 U/L Normal 16-63 [facility] Comment on above: Performed By: #### C MP #### Laboratory [address] [place] [address] Dr. Melinda Quintero Anion gap [Moles/Vol] 12.6 mmol/L Normal [facility] Comment on above: Performed By: #### C MP #### Laboratory [address] [address] [address] Melinda Quintero AST [Catalytic activity/Vol] 19 U/L Normal 15-37 [facility] Comment on above: Performed By: #### C MP #### Laboratory [address] [address] [address] Melinda Quintero Bilirubin [Mass/Vol] 0.6 mg/dL Normal 0.2-1.0 [facility] Comment on above: Performed By: #### C MP #### Laboratory [address] [address] [address] Melinda Quintero Calcium [Mass/Vol] 8.7 mg/dL Normal 8.5-10.1 [facility] Comment on above: Performed By: #### C MP #### Laboratory [address] [address] [address] Melinda Quintero Chloride [Moles/Vol] 104 mmol/L Normal 98-107 [facility] Comment on above: Performed By: #### C MP #### Laboratory [address] [address] [address] Melinda Quintero CO2 [Moles/Vol] 26.5 mmol/L Normal 21.0-32.0 [facility] Comment on above: Performed By: #### C MP #### Laboratory [address] [address] [address] Melinda Quintero Creatinine [Mass/Vol] 0.93 mg/dL Normal 0.70-1.30 [facility] Comment on above: Performed By: #### C MP #### Laboratory [address] [address] [address] Melinda Quintero EGFR-AF CHILEAN >60 Normal >=60 [facility] Comment on above: Performed By: #### C MP #### Laboratory [address] [address] [address] Melinda Quintero EGFR-NON AF CHILEAN >60 Normal >=60 [facility] Comment on above: Performed By: #### C MP #### Laboratory [address] [address] [address] Melinda Quintero Globulin (S) [Mass/Vol] 3.6 g/dL Normal [facility] Comment on above: Performed By: #### C MP #### Laboratory [address] [address] [address] Melinda Quintero Glucose [Mass/Vol] 105 mg/dL Normal 74-106 [facility] Comment on above: Performed By: #### C MP #### Laboratory [address] [address] [address] Melinda Quintero Potassium [Moles/Vol] 4.1 mmol/L Normal 3.5-5.1 The Comment on above: Performed By: #### C MP #### Laboratory [address] [place] [address] Dr. Melinda Quintero Protein [Mass/Vol] 7.2 g/dL Normal 6.4-8.2 [facility] Comment on above: Performed By: #### C MP #### Laboratory [address] [address] [address] Melinda Quintero Sodium [Moles/Vol] 139 mmol/L Normal 136-145 [facility] Comment on above: Performed By: #### C MP #### Laboratory [address] [place] [address] Dr. Melinda Quintero Urea nitrogen [Mass/Vol] 20.0 mg/dL Critically high 7.0-18.0 [facility] Comment on above: Performed By: #### C MP #### Laboratory [address] [address] [address] Melinda Quintero Urea nitrogen/Creatinine [Mass ratio] 21.5 mg/mg Normal [facility] Comment on above: Performed By: #### C MP #### Laboratory [address] [address] [address] Melinda Quintero VITAMIN D 25 OHon 02-11-2022 VIT D 25-OH 23.4 ng/mL Normal [facility] Comment on above: Performed By: #### V ITAD #### Laboratory [address] [place] [address] Dr. Melinda Quintero VIT D RANGES SEE BELOW Normal [facility] Comment on above: Result Comment: <20 ng/mL Vit D deficient 20 - <30 ng/mL Vit D insufficient 30 - 100 ng/mL Vit D sufficient >100 ng/mL Potential Toxicity Performed By: #### V ITAD #### Laboratory [address] [place] [address] Dr. Melinda Quintero CBC AUTO DIFFon 12-17-2021 BASO # 0.1 103/ul Normal 0.0-0.1 [facility] Comment on above: Performed By: #### C BC #### Laboratory [address] [place] [address] Dr. Melinda Quintero Basophils/100 WBC (Bld) 0.9 % Normal 0.2-2.0 [facility] Comment on above: Performed By: #### C BC #### Laboratory [address] [place] [address] Dr. Melinda Quintero EO # 0.2 103/ul Normal 0.0-0.7 [facility] Comment on above: Performed By: #### C BC #### Laboratory [address] [place] [address] Dr. Melinda Quintero Eosinophils/100 WBC (Bld) 2.6 % Normal 0.9-7.0 [facility] Comment on above: Performed By: #### C BC #### Laboratory [address] [place] [address] Dr. Melinda Quintero Erythrocyte distribution width (RBC) [Ratio] 13.3 % Normal 11.0-15.0 [facility] Comment on above: Performed By: #### C BC #### Laboratory [address] [place] [address] Dr. Melinda Quintero Hematocrit (Bld) [Volume fraction] 44.6 % Normal 42.0-54.0 [facility] Comment on above: Performed By: #### C BC #### Laboratory [address] [place] [address] Dr. Melinda Quintero Hemoglobin (Bld) [Mass/Vol] 14.7 g/dL Normal 14.0-18.0 [facility] Comment on above: Performed By: #### C BC #### Laboratory [address] [place] [address] Dr. Melinda Quintero IG # 0.02 10e3/ul Normal 0.00-0.03 [facility] Comment on above: Performed By: #### C BC #### Laboratory [address] [place] [address] Dr. Melinda Quintero IG % 0.3 % Normal 0.0-0.5 [facility] Comment on above: Performed By: #### C BC #### Laboratory [address] [place] [address] Dr. Melinda Quintero LYMPH # 2.0 103/ul Normal 1.2-3.8 [facility] Comment on above: Performed By: #### C BC #### Laboratory [address] [place] [address] Dr. Melinda Quintero Lymphocytes/100 WBC (Bld) 24.8 % Normal 20.5-60.0 [facility] Comment on above: Performed By: #### C BC #### Laboratory [address] [place] [address] Dr. Melinda Quintero MANUAL DIFF REQ NO Normal [facility] Comment on above: Performed By: #### C BC #### Laboratory [address] [place] [address] Dr. Melinda Quintero MCH (RBC) [Entitic mass] 32.0 pg Normal 25.9-34.0 [facility] Comment on above: Performed By: #### C BC #### Laboratory [address] [place] [address] Dr. Melinda Quintero MCHC (RBC) [Mass/Vol] 33.0 g/dL Normal 29.9-35.2 [facility] Comment on above: Performed By: #### C BC #### Laboratory [address] [place] [address] Dr. Melinda Quintero MCV (RBC) [Entitic vol] 97.0 fL Critically high 80.0-94.0 [facility] Comment on above: Performed By: #### C BC #### Laboratory [address] [address] [address] Melinda Quintero MONO # 0.8 103/ul Normal 0.3-0.8 [facility] Comment on above: Performed By: #### C BC #### Laboratory [address] [address] [address] Melinda Quintero Monocytes/100 WBC (Bld) 10.3 % Normal 1.7-12.0 [facility] Comment on above: Performed By: #### C BC #### Laboratory [address] [address] [address] Melinda Quintero NEUT # 4.9 103/ul Normal 1.4-6.5 [facility] Comment on above: Performed By: #### C BC #### Laboratory [address] [place] [address] Dr. Melinda Quintero Neutrophils/100 WBC (Bld) 61.1 % Normal 43.0-75.0 [facility] Comment on above: Performed By: #### C BC #### Laboratory [address] [place] [address] Dr. Melinda Quintero Platelet mean volume (Bld) [Entitic vol] 11.2 fL Normal 9.5-13.5 [facility] Comment on above: Performed By: #### C BC #### Laboratory [address] [place] [address] Dr. Melinda Quintero PLT 242 103/ul Normal 150-450 The Comment on above: Performed By: #### C BC #### Laboratory [address] [place] [address] Dr. Melinda Quintero RBC 4.60 106/ul Critically low 4.70-6.10 [facility] Comment on above: Performed By: #### C BC #### Laboratory [address] [address] [address] Melinda Quintero WBC 8.0 103/ul Normal 4.0-11.0 The Comment on above: Performed By: #### C BC #### Laboratory [address] [address] [address] Melinda Quintero GLYCOHEMOGLOBIN A1Con 2021 ADA RECOMMENDATION SEE BELOW Normal [facility] Comment on above: Result Comment: ADA RECOMMENDED LIMIT 4.0 - 6.0 ADA THERAPEUTIC TARGET < 7.0 ACTION SUGGESTED > 7.0 Performed By: #### A 1C #### Laboratory [address] [address] [address] Melinda Quintero Glucose [Mass/Vol] 128 mg/dL Normal [facility] Comment on above: Performed By: #### A 1C #### Laboratory [address] [place] [address] Dr. Melinda Quintero HbA1c (Bld) [Mass fraction] 6.1 % Normal 4.5-6.2 [facility] Comment on above: Performed By: #### A 1C #### Laboratory [address] [place] [address] Dr. Melinda Quintero LIPID PROFILEon 12-17-2021 CHOL-HDL RATIO NORM SEE BELOW Normal [facility] Comment on above: Result Comment: 3.3 - 4.4 LOW RISK 4.4 - 7.1 AVERAGE RISK 7.1 - 11.0 MODERATE RISK >11.0 HIGH RISK Performed By: #### L IPID, CMP #### Laboratory [address] [place] [address] Dr. Melinda Quintero Cholesterol [Mass/Vol] 86 mg/dL Normal <=200 [facility] Comment on above: Performed By: #### L IPID, CMP #### Laboratory [address] [place] [address] Dr. Melinda Quintero Cholesterol in HDL [Mass/Vol] 38 mg/dL Critically low 40-60 [facility] Comment on above: Performed By: #### L IPID, CMP #### Laboratory [address] [place] [address] Dr. Melinda Quintero Cholesterol in LDL [Mass/Vol] 33.8 mg/dL Normal [facility] Comment on above: Performed By: #### L IPID, CMP #### Laboratory [address] [place] [address] Dr. Melinda Quintero Cholesterol.total/Ch olesterol in HDL [Mass ratio] 2.3 {ratio} Normal [facility] Comment on above: Performed By: #### L IPID, CMP #### Laboratory [address] [address] [address] Melinda Quintero HDL NORMAL > or = 60 mg/dl - LOW CARDIOVASCULAR RISK <40 mg/dl - HIGH CARDIOVASCULAR RISK Normal [facility] Comment on above: Performed By: #### L IPID, CMP #### Laboratory [address] [address] [address] Melinda Quintero LDL CALC NORMAL SEE BELOW Normal [facility] Comment on above: Result Comment: <100 mg/dl OPTIMAL 100 - 129 mg/dl NEAR OR ABOVE OPTIMAL 130 - 159 mg/dl BORDERLINE HIGH 160 - 189 mg/dl HIGH >190 mg/dl VERY HIGH Performed By: #### L IPID, CMP #### Laboratory [address] [place] [address] Dr. Melinda Quintero Triglyceride [Mass/Vol] 71 mg/dL Normal <=150 [facility] Comment on above: Performed By: #### L IPID, CMP #### Laboratory [address] [place] [address] Dr. Melinda Quintero VLDL CALC 14.2 mg/dL Normal [facility] Comment on above: Performed By: #### L IPID, CMP #### Laboratory [address] [place] [address] Dr. Melinda Quintero MICROALBUMIN, RAND URon 12-01 mALB <1.3 Normal <=30.0 [facility] Comment on above: Performed By: #### M ALBR #### Laboratory [address] [address] [address] Melinda Quintero PROF 14(COMP METB)on 022 Albumin [Mass/Vol] 3.8 g/dL Normal 3.4-5.0 [facility] Comment on above: Performed By: #### L IPID, CMP #### Laboratory [address] [place] [address] Dr. Melinda Quintero Albumin/Globulin [Mass ratio] 1.1 {ratio} Normal [facility] Comment on above: Performed By: #### L IPID, CMP #### Laboratory [address] [place] [address] Dr. Melinda Quintero ALP [Catalytic activity/Vol] 74 U/L Normal 46-116 [facility] Comment on above: Performed By: #### L IPID, CMP #### Laboratory [address] [address] [address] Melinda Quintero ALT [Catalytic activity/Vol] 35 U/L Normal 16-63 [facility] Comment on above: Performed By: #### L IPID, CMP #### Laboratory [address] [place] [address] Dr. Melinda Quintero Anion gap [Moles/Vol] 9.1 mmol/L Normal [facility] Comment on above: Performed By: #### L IPID, CMP #### Laboratory [address] [place] [address] Dr. Melinda Quintero AST [Catalytic activity/Vol] 21 U/L Normal 15-37 [facility] Comment on above: Performed By: #### L IPID, CMP #### Laboratory [address] [place] [address] Dr. Melinda Quintero Bilirubin [Mass/Vol] 0.8 mg/dL Normal 0.2-1.0 [facility] Comment on above: Performed By: #### L IPID, CMP #### Laboratory [address] [place] [address] Dr. Melinda Quintero Calcium [Mass/Vol] 9.1 mg/dL Normal 8.5-10.1 [facility] Comment on above: Performed By: #### L IPID, CMP #### Laboratory [address] [place] [address] Dr. Melinda Quintero Chloride [Moles/Vol] 102 mmol/L Normal 98-107 [facility] Comment on above: Performed By: #### L IPID, CMP #### Laboratory [address] [place] [address] Dr. Melinda Quintero CO2 [Moles/Vol] 30.0 mmol/L Normal 21.0-32.0 [facility] Comment on above: Performed By: #### L IPID, CMP #### Laboratory [address] [place] [address] Dr. Melinda Quintero Creatinine [Mass/Vol] 0.90 mg/dL Normal 0.70-1.30 [facility] Comment on above: Performed By: #### L IPID, CMP #### Laboratory [address] [place] [address] Dr. Melinda Quintero EGFR-AF CHILEAN >60 Normal >=60 [facility] Comment on above: Performed By: #### L IPID, CMP #### Laboratory [address] [place] [address] Dr. Melinda Quintero EGFR-NON AF CHILEAN >60 Normal >=60 [facility] Comment on above: Performed By: #### L IPID, CMP #### Laboratory [address] [place] [address] Dr. Melinda Quintero Globulin (S) [Mass/Vol] 3.4 g/dL Normal [facility] Comment on above: Performed By: #### L IPID, CMP #### Laboratory [address] [place] [address] Dr. Melinda Quintero Glucose [Mass/Vol] 116 mg/dL Critically high 74-106 T [facility] Comment on above: Performed By: #### L IPID, CMP #### Laboratory [address] [address] [address] Melinda Quintero Potassium [Moles/Vol] 4.1 mmol/L Normal 3.5-5.1 [facility] Comment on above: Performed By: #### L IPID, CMP #### Laboratory [address] [place] [address] Dr. Melinda Quintero Protein [Mass/Vol] 7.2 g/dL Normal 6.4-8.2 [facility] Comment on above: Performed By: #### L IPID, CMP #### Laboratory [address] [place] [address] Dr. Melinda Quintero Sodium [Moles/Vol] 137 mmol/L Normal 136-145 [facility] Comment on above: Performed By: #### L IPID, CMP #### Laboratory [address] [address] [address] Melinda Quintero Urea nitrogen [Mass/Vol] 21.0 mg/dL Critically high 7.0-18.0 [facility] Comment on above: Performed By: #### L IPID, CMP #### Laboratory [address] [address] [address] Melinda Quintero Urea nitrogen/Creatinine [Mass ratio] 23.3 mg/mg Normal [facility] Comment on above: Performed By: #### L IPID, CMP #### Laboratory [address] [place] [address] Dr. Melinda Quintero VITAMIN B12on 12-17-2021 Cobalamin (Vitamin B12) [Mass/Vol] 438.0 pg/mL Normal 193.0-986.0 [facility] Comment on above: Performed By: #### V ITB12 #### Laboratory [address] [place] [address] Dr. Melinda Quintero KHADRA Antinuclear Antibodieson 07-17-2021 Antinuclear Abs, IFA Negative Normal . [facility] Comment on above: Result Comment: Nega tive <1:80 Borderline 1:80 Positive >1:80 ICAP nomenclature: AC-0 For more information about Hep-2 cell patterns use ANApatterns.org, the official website for the International Consensus on Antinuclear Antibody (KHADRA) Patterns (ICAP). Performed at: - [facility] [address] [id number] Manager Of International: Srikanth Hummel PhD, Phone: [phone] PERFORMED BY: [place] [address] PATHOLOGIST MANAGEMENT INFORMATION SYSTEMS DIRECTOR PARRISH TREVIZO M.D. Performed By: #### P TH, ESR, CMP, CRP, CBC, TSH3 #### [place] [address] [place] #### KHADRA #### [facility] , C-Reactive Proteinon 021 C-Reactive Protein 0.5 mg/dL Normal 0.0-1.0 [facility] Comment on above: Performed By: #### P TH, ESR, CMP, CRP, CBC, TSH3 #### [address] #### KHADRA #### [facility] , Complete Blood Count Auto Di ffon 07-17-2021 Basophils (Bld) [#/Vol] 0.1 10*3/uL Normal 0.0-0.2 [facility] Comment on above: Performed By: #### P TH, ESR, CMP, CRP, CBC, TSH3 #### [address] #### KHADRA #### [facility] , Basophils/100 WBC (Bld) 1.0 % Normal . [facility] Comment on above: Performed By: #### P TH, ESR, CMP, CRP, CBC, TSH3 #### [place] [address] [place] #### KHADRA #### [facility] , Eosinophils (Bld) [#/Vol] 0.2 10*3/uL Normal 0.0-0.45 [facility] Comment on above: Performed By: #### P TH, ESR, CMP, CRP, CBC, TSH3 #### [facility] [address] [place] [address] [place] #### KHADRA #### [facility] , Eosinophils/100 WBC (Bld) 2.8 % Normal . [facility] Comment on above: Performed By: #### P TH, ESR, CMP, CRP, CBC, TSH3 #### [place] [address] [place] #### KHADRA #### [facility] , Erythrocyte distribution width (RBC) [Ratio] 15.4 % High 12.0-14.8 [facility] Comment on above: Performed By: #### P TH, ESR, CMP, CRP, CBC, TSH3 #### [facility] [address] [place] [address] [place] #### KHADRA #### [facility] , Hematocrit (Bld) [Volume fraction] 45.9 % Normal 38.8-50.0 [facility] Comment on above: Performed By: #### P TH, ESR, CMP, CRP, CBC, TSH3 #### [place] [address] [place] #### KHADRA #### [facility] , Hemoglobin (Bld) [Mass/Vol] 15.1 g/dL Normal 13.0-17.0 [facility] Comment on above: Performed By: #### P TH, ESR, CMP, CRP, CBC, TSH3 #### [place] [address] [place] #### KHADRA #### [facility] , Lymphocytes (Bld) [#/Vol] 1.8 10*3/uL Normal 1.00-4.8 [facility] Comment on above: Performed By: #### P TH, ESR, CMP, CRP, CBC, TSH3 #### [address] #### KHADRA #### [facility] , Lymphocytes/100 WBC (Bld) 24.5 % Normal . [facility] Comment on above: Performed By: #### P TH, ESR, CMP, CRP, CBC, TSH3 #### [place] [address] [place] #### KHADRA #### [facility] , MCH (RBC) [Entitic mass] 31.2 pg Normal 27.5-35.2 [facility] Comment on above: Performed By: #### P TH, ESR, CMP, CRP, CBC, TSH3 #### [place] [address] [place] #### KHADRA #### [facility] , MCV (RBC) [Entitic vol] 94.6 fL Normal 83.5-101 [facility] Comment on above: Performed By: #### P TH, ESR, CMP, CRP, CBC, TSH3 #### [place] [address] [place] #### KHADRA #### [facility] , Mean Corpuscular HGB Conc 32.9 g/dL Normal 32.5-35.6 [facility] Comment on above: Performed By: #### P TH, ESR, CMP, CRP, CBC, TSH3 #### [facility] [address] [place] [address] [place] #### KHADRA #### [facility] , Monocytes (Bld) [#/Vol] 0.7 10*3/uL Normal 0.0-0.8 [facility] Comment on above: Performed By: #### P TH, ESR, CMP, CRP, CBC, TSH3 #### [place] [address] [place] #### KHADRA #### [facility] , Monocytes/100 WBC (Bld) 10.1 % Normal . [facility] Comment on above: Performed By: #### P TH, ESR, CMP, CRP, CBC, TSH3 #### [facility] [address] [place] [address] [place] #### KHADRA #### [facility] , Neutrophils (Bld) [#/Vol] 4.5 10*3/uL Normal 1.8-7.7 [facility] Comment on above: Performed By: #### P TH, ESR, CMP, CRP, CBC, TSH3 #### [facility] [address] [place] [address] [place] #### KHADRA #### [facility] , Neutrophils/100 WBC (Bld) 61.6 % Normal . [facility] Comment on above: Performed By: #### P TH, ESR, CMP, CRP, CBC, TSH3 #### [facility] [address] [place] [address] [place] #### KHADRA #### [facility] , Nucleated RBC/100 WBC (Bld) [Ratio] 0.0 % Normal 0-0.5 [facility] Comment on above: Performed By: #### P TH, ESR, CMP, CRP, CBC, TSH3 #### [facility] [address] [place] [address] [place] #### KHADRA #### [facility] , Platelet mean volume (Bld) [Entitic vol] 9.5 fL Normal 6.6-10.1 [facility] Comment on above: Performed By: #### P TH, ESR, CMP, CRP, CBC, TSH3 #### [place] [address] [place] #### KHADRA #### [facility] , Platelets (Bld) [#/Vol] 192 10*3/uL Normal 150-450 [facility] Comment on above: Performed By: #### P TH, ESR, CMP, CRP, CBC, TSH3 #### [place] [address] [place] #### KHADRA #### [facility] , RBC (Bld) [#/Vol] 4.85 10*6/uL Normal 3.90-5.60 [facility] Comment on above: Performed By: #### P TH, ESR, CMP, CRP, CBC, TSH3 #### [place] [address] [place] #### KHADRA #### [facility] , WBC (Bld) [#/Vol] 7.4 10*3/uL Normal 4.5-11.0 [facility] Comment on above: Performed By: #### P TH, ESR, CMP, CRP, CBC, TSH3 #### [place] [address] [place] #### KHADRA #### [facility] , Comprehensive Metabolic Pane tristan 07-17-2021 Albumin [Mass/Vol] 4.0 g/dL Normal 3.2-5.5 [facility] Comment on above: Performed By: #### P TH, ESR, CMP, CRP, CBC, TSH3 #### [facility] [address] [place] [address] [place] #### KHADRA #### [facility] , Albumin/Globulin [Mass ratio] 1.4 {ratio} Normal [facility] Comment on above: Performed By: #### P TH, ESR, CMP, CRP, CBC, TSH3 #### [facility] [address] [place] [address] #### KHADRA #### [facility] , ALP [Catalytic activity/Vol] 70 U/L Normal 32-92 [facility] Comment on above: Performed By: #### P TH, ESR, CMP, CRP, CBC, TSH3 #### [place] [address] [place] #### KHADRA #### [facility] , ALT [Catalytic activity/Vol] 27 U/L Normal 10-60 [facility] Comment on above: Performed By: #### P TH, ESR, CMP, CRP, CBC, TSH3 #### [facility] [address] [place] [address] [place] #### KHADRA #### [facility] , AST [Catalytic activity/Vol] 26 U/L Normal 10-42 [facility] Comment on above: Performed By: #### P TH, ESR, CMP, CRP, CBC, TSH3 #### [facility] [address] [place] [address] [place] #### KHADRA #### [facility] , Bilirubin [Mass/Vol] 0.8 mg/dL Normal 0.3-1.[address] [facility] Comment on above: Performed By: #### P TH, ESR, CMP, CRP, CBC, TSH3 #### [facility] [address] [place] [address] [place] #### KHADRA #### [facility] , Calcium [Mass/Vol] 9.4 mg/dL Normal 8.2-10.2 [facility] Comment on above: Performed By: #### P TH, ESR, CMP, CRP, CBC, TSH3 #### [facility] [address] [place] [address] [place] #### KHADRA #### [facility] , Chloride [Moles/Vol] 103 mmol/L Normal 95-[address] [facility] Comment on above: Performed By: #### P TH, ESR, CMP, CRP, CBC, TSH3 #### [address] #### KHADRA #### [facility] , CO2 [Moles/Vol] 26.2 mmol/L Normal 22.0-30.0 [facility] Comment on above: Performed By: #### P TH, ESR, CMP, CRP, CBC, TSH3 #### [facility] [address] [place] [address] [place] #### KHADRA #### [facility] , Creatinine [Mass/Vol] 0.80 mg/dL Normal 0.64-1.27 [facility] Comment on above: Performed By: #### P TH, ESR, CMP, CRP, CBC, TSH3 #### [place] [address] [place] #### KHADRA #### [facility] , Estimated GFR ( Morenita > 60 Normal [facility] Comment on above: Result Comment: GFR estimated reference range: According to KDOQI guidelines, <60 ml/min/1.73m2 is sufficient to diagnose a patient with chronic kidney disease. Performed By: #### P TH, ESR, CMP, CRP, CBC, TSH3 #### [facility] [address] [place] [address] [place] #### KHADRA #### [facility] , Estimated GFR (Non- Am > 60 Normal [facility] Comment on above: Performed By: #### P TH, ESR, CMP, CRP, CBC, TSH3 #### [facility] [address] [place] [address] [place] #### KHADRA #### [facility] , Globulin (S) [Mass/Vol] 2.9 g/dL Normal [facility] Comment on above: Performed By: #### P TH, ESR, CMP, CRP, CBC, TSH3 #### [place] [address] [place] #### KHADRA #### [facility] , Glucose [Mass/Vol] 95 mg/dL Normal 70-100 [facility] Comment on above: Result Comment: [place] Glucose Reference Range is dependent on time and content of last meal. Glucose of more than 200 mg/dL in a nonstressed, ambulatory subject supports the diagnosis of Diabetes Mellitus. ADA recommended reference range Performed By: #### P TH, ESR, CMP, CRP, CBC, TSH3 #### [place] [address] [place] #### KHADRA #### [facility] , Potassium [Moles/Vol] 4.3 mmol/L Normal 3.5-5.1 [facility] Comment on above: Performed By: #### P TH, ESR, CMP, CRP, CBC, TSH3 #### [place] [address] [place] #### KHADRA #### [facility] , Protein [Mass/Vol] 6.9 g/dL Normal 6.1-7.9 [facility] Comment on above: Performed By: #### P TH, ESR, CMP, CRP, CBC, TSH3 #### [place] [address] [place] #### KHADRA #### [facility] , Sodium [Moles/Vol] 139 mmol/L Normal 136-146 [facility] Comment on above: Performed By: #### P TH, ESR, CMP, CRP, CBC, TSH3 #### [facility] [address] [place] [address] #### KHADRA #### [facility] , Urea nitrogen [Mass/Vol] 16 mg/dL Normal 9-23 [facility] Comment on above: Performed By: #### P TH, ESR, CMP, CRP, CBC, TSH3 #### [facility] [address] [place] [address] #### KHADRA #### [facility] , Erythrocyte Sedimentation Ra karla 07-17-2021 ESR (Bld) [Velocity] 21 mm/h High 0-[address] [facility] Comment on above: Result Comment: PERF ORMED BY: [place] [address] PATHOLOGIST MANAGEMENT INFORMATION SYSTEMS DIRECTOR PARRISH TREVIZO M.D. Performed By: #### P TH, ESR, CMP, CRP, CBC, TSH3 #### [address] #### KHADRA #### [facility] , Parathyroid Hormone Intacton 07-17-2021 Parathyroid Hormone Intact 56.3 pg/mL Normal 12-88 [facility] Comment on above: Result Comment: PERF ORMED BY: [place] [address] PATHOLOGIST MANAGEMENT INFORMATION SYSTEMS DIRECTOR PARRISH TREVIZO M.D. Performed By: #### P TH, ESR, CMP, CRP, CBC, TSH3 #### [facility] [address] [place] [address] [place] #### KHADRA #### [facility] , Thyroid Stimulating Hormoneo n 07-17-2021 TSH Qn 3.24 m[IU]/L Normal 0.45-5.33 [facility] Comment on above: Performed By: #### P TH, ESR, CMP, CRP, CBC, TSH3 #### [address] #### KHADRA #### [facility] , XR hand BI 2Von 07-17-2021 XR hand BI 2V [place] [address] XRay Report Signed Patient: Pantera Del Cid MR#: [id number] 5 : 1955 Acct:[id number] Age/Sex: 66 / M ADM Date: 07/17/21 Loc: ICXD Room: [facility] Attending Dr: Michael Barrett MD Ordering Provider: Michael Barrett MD Date of Service: 07/17/21 XR/XR foot BI 2V: PAIN ([id number]) XR/XR hand BI 2V: PAIN Copies to: [...] Chilango Mcclure M.D.07/17/2021 3:05 PM Dictation Location: [place] [address] Transcribed By: [facility] 07/17/21 1505 Dictated By: Chilango Mcclure DO 07/17/21 1502 Signed By: 07/17/21 1505 Normal [facility] XR wrist LT min 3V*on 2020 XR wrist LT min 3V* [facility] [place] [id number] XRay Report Signed Patient: Pantera Del Cid MR#: [id number] 5 : 1955 Acct:[id number] Age/Sex: 65 / M ADM Date: 01/14/21 Loc: XDUCLY Room: Type: [facility] Attending Dr: Smiley MONTES Ordering Provider: [...] Karla Denton M.D.01/14/2021 3:29 PM Dictation Location: [place] [address] Transcribed By: [facility] 01/14/21 1529 Dictated By: Karla Denton MD 01/14/21 1519 Signed By: 01/14/21 1529 [facility] Vital Signs Date Time Vital Sign Value Performing Clinician Facility 01-18-2024 14:47-0400 Diastolic blood pressure 72 mm[Hg] Yadiel Lacey MD Work Phone: [facility] 01-18-2024 14:47-0400 Heart rate 53 /min Yadiel Lacey MD Work Phone: [facility] 01-18-2024 14:47-0400 Systolic blood pressure 114 mm[Hg] Yadiel Lacey MD Work Phone: [facility] 01-18-2024 14:46-0400 Body height 182.9 cm Yadiel Lacey MD Work Phone: [facility] 01-18-2024 14:46-0400 Body mass index (BMI) [Ratio] 36.35 kg/m2 Yadiel Lacey MD Work Phone: [facility] 01-18-2024 14:46-0400 Body weight 121.56 kg Yadiel Lacey MD Work Phone: [facility] 05-07-2023 11:20-0400 Body height 182.88 cm Leandra Villalobos Other [facility] Other 05-07-2023 11:20-0400 Body mass index (BMI) [Ratio] 33.22 kg/m2 Leandra Villalobos Other [facility] Other 05-07-2023 11:20-0400 Body temperature 98.2 [degF] Leandra Villalobos Other [facility] Other 05-07-2023 11:20-0400 Body weight 111.13 kg Leandra Villalobos Other [facility] Other 05-07-2023 11:20-0400 Diastolic blood pressure 72 mm[Hg] Leandra Villalobos Other [facility] Other 05-07-2023 11:20-0400 Respiratory rate 18 /min Leandra Villalobos Other [facility] Other 05-07-2023 11:20-0400 SaO2% (BldA) [Mass fraction] 93 % Leandra Villalobos Other [facility] Other 05-07-2023 11:20-0400 Systolic blood pressure 118 mm[Hg] Leandra Villalobos Other [facility] Other Encounters Encounter Date Encounter Type Care Provider Facility Start: 02-16-2024 End: 02-16-2024 ambulatory SHAIKH DEION Not Available Start: 02-01-2024 End: 02-01-2024 ambulatory CHASIDY B APLING Not Available Start: 01-20-2024 End: 01-20-2024 ambulatory GISSELLE Vishnu MCGILL Not Available Start: 01-19-2024 End: 01-19-2024 ambulatory SHAIKH DEION Not Available Start: 01-18-2024 Encounter for preprocedural cardiovascular examination [facility] Start: 01-18-2024 End: 01-18-2024 Office consultation new/estab patient 60 min Yadiel Lacey MD Work Phone: [facility] Comment on above: Bilateral carotid ar lselie stenosis (Primary Dx); Preoperative cardiovascular examination; Essential hypertension; BMI 36.0-36.9,adult; Sinus bradycardia; Diabetes mellitus type II, non insulin dependent (Multi) Start: 01-18-2024 End: 01-18-2024 ambulatory [facility] Start: 01-18-2024 End: 01-18-2024 Encounter for preprocedural cardiovascular examination [facility] Start: 01-18-2024 End: 01-18-2024 Patient encounter status Yadiel Lacey MD Work Phone: [facility] Start: 01-04-2024 End: 01-04-2024 ambulatory CHASIDY B APLING Not Available Start: 12-23-2023 End: 12-23-2023 Evaluation and management of inpatient AMAN BECK [facility] Start: 12-03-2023 End: 12-03-2023 ambulatory SHAIKH [...] 05-07-2023 End: 05-07-2023 ambulatory Leandra Villalobos Other [facility] Other Start: 05-07-2023 Office outpatient vi sit 15 minutes Leandra Villalobos [facility] Start: 02-11-2022 End: 02-12-2022 [...] DTaP/Tdap/Td Vaccines (2 - Td or Tdap) [facility] Start: 04-03-2023 COVID-19 Vaccine ( season) COVID-19 Vaccine ( season) [facility] Start: 11-08-2021 Pneumococcal Vaccine: 65+ Years (2 of 2 - PCV) Pneumococcal Vaccine: 65+ Years (2 of 2 - PCV) [facility] Start: 2021 Abdominal aortic aneurysm screening Abdominal Aortic Aneurysm (AAA) Screening [facility] Start: 2016 RSV patients and/or patients aged 60+ years (1 - 1-dose 60+ series) RSV patients and/or patients aged 60+ years (1 - 1-dose 60+ series) [facility] Start: 2006 Zoster Vaccines (1 of 2) Zoster Vaccines (1 of 2) [facility] Start: 1975 Urine screening for protein Diabetes: Urine Protein Screening [facility] Start: 1974 Hepatitis C screening Hepatitis C Screening [facility] Start: 1966 Diabetic foot examination Diabetes: Foot Exam [facility] Start: 1966 Glaucoma screening Diabetes: Retinopathy Screening [facility] Start: 1956 Hemoglobin A1c measurement Diabetes: Hemoglobin A1C [facility] Start: 1956 Lipid panel Lipid Panel [facility] Start: 1956 Medicare Annual Wellness Visit Medicare Annual Wellness Visit (AWV) [facility] Start: 1956 Screening for malignant neoplasm of colon [facility] Immunizations Immunization Date Immunization Notes Care Provider Fa cili 06-24-2023 Influenza, Seasonal, Quadrivalent, Adjuvanted Yadiel Lacey MD Work Phone: [facility] Work Phone: 11-08-2020 pneumococcal polysaccharide vaccine, 23 valent Yadiel Lacey MD Work Phone: [facility] Work Phone: 05-12-2018 seasonal influenza, intradermal, preservative free Yadiel Lacey MD Work Phone: [facility] Work Phone: 07-09-2017 influenza, seasonal, injectable Leandra Villalobos Other [facility] Other 06-12-2016 seasonal influenza, intradermal, preservative free Yadiel Lacey MD Work Phone: [facility] Work Phone: 06-27-2015 tetanus toxoid, redu kurt diphtheria toxoid, and acellular pertussis vaccine, adsorbed Yadiel Lacey MD Work Phone: [facility] Work Phone: Payers Date Payer Category Payer Medicare MEDICARE MEDICAR E PART A AND B [id number] 2023-Present [address] [place] [address] [id number] 2023 Unknown [employer] [id number] 2023-Present [phone] [address] [place] [address] [id number] 2023 Unknown [id number] 2022 Unknown [id number] 2.16.8 [id number] 2021 Medicare [id number] 1959 Unknown [id number] 1955 Unknown [id number] [id number]3 1956 Unknown [id number] 2.16.840.1.325990.3.579.2.593 1956 Unknown [id number] 2.16.840.1.518606.3.579.2.128 6 1956 Unknown [id number] 2.16.840.1.350657.3.579.2.124 4 1956 Unknown [id number] 2.16.840.1.645768.3.579.2.125 9 1956 Unknown [id number] 2.16.840.1.288847.3.579.2.125 9 1956 Unknown [id number] 2.16.840.1.487186.3.579.2.125 9 1956 Unknown [id number] 2.16.840.1.792891.3.579.2.125 9 1956 Unknown [id number] 2.16.840.1.763324.3.579.2.125 9 1956 Unknown [id number] 2.16.840.1.678671.3.579.2.125 9 1956 Unknown [id number] 2.16.840.1.105215.3.579.2.125 9 1956 Unknown [id number] 2.16.840.1.841371.3.579.2.125 9 1956 Unknown [id number] 2.16.840.1.496301.3.579.2.125 9 1956 Unknown [id number] 2.16.840.1.547865.3.579.2.125 9 1956 Unknown [id number] 2.16.840.1.911669.3.579.2.125 9 1956 Unknown [id number] 2.16.840.1.306414.3.579.2.125 9 1956 Unknown [id number] 2.16.840.1.913107.3.579.2.125 9 1955 Unknown [id number] 2.16.840.1.797200.3.579.2.125 9 Medicare [id number] [id number] Social History Date Type Detail Facility Unknown if ever smoked [facility] Other Start: 01-18-2024 Sex Assigned At [facility] Other Start: 01-18-2024 Tobacco smoking stat us WIIS Ex-smoker [facility] Work Phone: History of tobacco use Current smoker [facility] Work Phone: History of tobacco use Cigarette Smoker [facility] Work Phone: Start: 01-18-2024 Tobacco use and exposure Smokeless tobacco non-user [facility] Work Phone: Start: 01-18-2024 Alcoholic beverage intake Current drinker of alcohol (finding) [facility] Work Phone: Start: 01-18-2024 History of Social function [facility] Work Phone: Start: 1955 [facility] Start: 01-08-2024 End: 01-18-2024 Exposure to SARS-CoV-2 (event) Not sure [facility] History of Present illness Narrative 01-18-2024 [...] discussion and plan. documented in this encounter [facility] Work Phone: Instructions 01-18-2024 Patient InstructionsAttachments [...] cannot be sent through Care Everywhere.DASH Diet (Wolof)documented in this encounter [facility] Work Phone: Note 01-18-2024 Addendum Note - Yadiel Lacey MD - 01/18/2024 2:30 PM EDT Note Date & Type Note Facility 01-18-2024 Miscellaneous Notes Addended by: YADIEL LACEY on: 01/18/2024 04:19 PM Modules accepted: Level of Service documented in this encounter [facility] Work Phone: Clinical Note 01-18-2024 Addendum Note - Yadiel Lacey MD - 01/18/2024 2:30 PM EDT Note Date & Type Note Facility 01-18-2024 Note Addended by: YADIEL LINDSAY on: 01/18/2024 04:19 PM Modules accepted: Level of Service [facility] Work Phone: Evaluation note 05-07-2023 Note [...] regular lab work, etc. Discussed use of [id number] r KELBY hose, elevation to help with lower extremity edema. Patient verbalized understanding. [facility] Other History general Narrative - Reported 12-02-2003 [...] Hospitalization History allerigic reaction to PC N [facility] Other Evaluation note Note Date & Type [...] stated as uncontrolled documented in this encounter [facility] Work Phone: Summary Purpose Family History [...] ECG 12 Lead Yadiel Lacey MD [address] [place] [address], [address] [address] Referral ID Status Reason Start Date Expiration Date V isits Requested Visits Authorized [id number] Authorized 01/18/2024 01/17/2025 1 1 Additional Source Comments (unrecognized sect ion and content) No Status Records FoundNo Status Records FoundNo Status Records FoundNo Status Records FoundNo Status Records Found INFORMATION SOURCE (unrecogn ized section and content) DATE CREATED AUTHOR 09/16/2021 [facility] DATE CREATED AUTHOR AUTHOR'S ORGANIZ ATION 02/19/2022 [facility] DATE CREATED AUTHOR AUTHOR'S ORGANIZ ATION 12/25/2023 [facility] DATE CREATED AUTHOR AUTHOR'S ORGANIZ ATION 01/20/2024 [facility] DATE CREATED AUTHOR AUTHOR'S ORGANIZ ATION 02/20/2024 [facility] EPIC REASON FOR VISIT (unrecogniz ed section and content) Reason Comments Pre-op Clearance [facility] patriziau deber Specialty Diagnoses / Procedures Referred By Contmillicent t Referred To Contact Diagnoses Preoperative cardiovascular examination Procedures ECG 12 Lead Yadiel Lacey MD [address] [facility] [address] [place] [address] Referral ID Status Reason Start Date Expiration Date V isits Requested Visits Authorized [id number] Authorized 01/18/2024 01/17/2025 1 1 Care Teams (unrecognized sec tion and content) Electronic Data Processing Auditor Relationship Specialty Start Date End Date Jacob Espinal MD [address] [facility] [address] [place] [address] PCP - General Internal Medicine 01/18/24 FOR [...] BE BASED ON THE PRIMARY CLINICAL RECORDS. [employer] provides no warranty or guarantee of the accuracy or completeness of information in this document.
--- NOTE | 2024-03-17 11:31 | VEINCLINIC_ITS ---
Vital Signs 03/17/24 11:32 Height 5 ft 10 in Weight 113 kg BMI 35.7 Varicose Veins Patient in today for follow up ultrasound of left lower extremity following treatment of Varithena/microfoam completed on 03/08/24. Isaías Flores MD personally performed the services described in this documentation, as scribed by Kristan Márquez RDMS in my presence and it is both accurate and complete. Kristan Flores RDMS, am scribing for, and in the presence of, Dr. Christine Quintero and in the presence of the patient. thigh: bilateral (Bilateral leg veins symptoms left>right), knee: bilateral, calf: bilateral and ankle: bilateral aching, burning, cramping and dull 4 10 years Worsened in recent months: Yes standing elevating extremities and compression stockings Reports heaviness, limb pain, edema and leg edema History of lower extremity trauma: No Superficial thrombophlebitis: No Family history of varicose veins: yes Has patient had previous lower extremity venous surgery: No Patient has previously received the following treatment(s) for lower extremity varicose veins: Reports none Does patient have a history of : not applicable Has patient had lower extremity venous scan with relux testing: No Support hose used: Yes Problems walking or doing physical activity: Yes How does it affect you: often times have to stop and elevate feet/legs Do you walk much: Yes Do you stand much: Yes Review of Systems ROS Narrative Isaías Flores MD personally performed the services described in this docume ntation, as scribed by Kristan Márquez RDMS in my presence and it is both accurate and complete. Kristan Flores RDMS, am scribing for, and in the presence of, Dr. Christine Quintero and in the presence of the patient. Status of ROS 10 or more systems reviewed and unremark able except as noted in history and below Cardiovascular Reports: edema Integumentary/Breast Reports: redness and changes in skin color Hematologic/Lymphatic Reports: easy bruising and easy bleeding [facility] Medical History (Updated 02/26/24 @ 12:39 by Ryder Flores) FH: total knee replacement ?Z82.69 - Family history of other diseases of the musculoskeletal system and connective tissue (ICD-10) Rotator cuff arthropathy ?M12.819 - Other specific arthropathies, not elsewhere classified, unspecified shoulder (ICD-10) Restless leg ?G25.81 - Restless legs syndrome (ICD-10) Gout ?M10.9 - Gout, unspecified (ICD-10) Type 2 diabetes mellitus ?E11.9 - Type 2 diabetes mellitus without complications (ICD-10) Peripheral neuropathy ?G62.9 - Polyneuropathy, unspecified (ICD-10) Hypertension ?I10 - Essential (primary) hypertension (ICD-10) Anxiety ?F41.9 - Anxiety disorder, unspecified (ICD-10) Hyperlipemia ?E78.5 - Hyperlipidemia, unspecified (ICD-10) Depression ?F32.A - Depression, unspecified (ICD-10) Arthritis ?M19.90 - Unspecified osteoarthritis, unspecified site (ICD-10) Phlebitis of superficial vein of left lower extremity ?I80.02 - Phlebitis and thrombophlebitis of superficial vessels of left lower extremity (ICD-10) Varicose veins of bilateral lower extremities with pain ?I83.813 - Varicose veins of bilateral lower extremities with pain (ICD-10) Surgical History (Updated 02/26/24 @ 12:39 by Ryder Flores) H/O heart artery stent ?Z95.5 - Presence of coronary angioplasty implant and graft (ICD-10) Family History (Updated 02/26/24 @ 12:40 by Ryder Flores) Other Family history of diabetes mellitus Family history of hypertension Varicose veins of bilateral lower extremities with pain Meds Home Medications and Allergies Home Medications ?Medication ?Instructions ?Recorded ?Confirmed ?Type atorvastatin 80 mg tablet 80 mg PO QPM 02/26/24 02/26/24 History hydroxychloroquine PO 02/26/24 History lisinopril 10 1 tab PO DAILY 02/26/24 02/26/24 History mg-hydrochlorothiazide 12.5 mg tablet magnesium oxide-magnesium amino cap PO 02/26/24 History acid chelate 300 mg capsule metformin 500 mg tablet 500 mg PO BID 02/26/24 02/26/24 History naproxen sodium 220 mg capsule 220 mg PO BID PRN pain 02/26/24 02/26/24 History (Aleve) rivaroxaban 15 mg tablet (Xarelto) 15 mg PO BID 03/17/24 03/17/24 History Allergies Allergy/AdvReac Type Severity Reaction Status Date / Time amoxicillin [From Augmentin] Allergy Severe Difficulty Verified 02/19/24 15:40 Breathing clavulanic acid Allergy Severe Difficulty Verified 02/19/24 15:40 [From Augmentin] Breathing penicillamine Allergy Severe Anaphylaxis Verified 02/19/24 15:40 Penicillins Allergy Swelling Verified 02/26/24 12:43 of Lip/Tongue/Throat Exam Narrative Exam Narrative: Patient has no complaints today. Isaías Flores MD personally performed the services described in this documentation, as scribed by Kristan Márquez RDMS in my presence and it is both accurate and complete. Kristan Flores RDMS am scribing for, and in the presence of, Dr. Christine Quintero and in the presence of the patient. 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 Thrombus extends into both PTVs from proximal to distal. Isaías Flores MD personally performed the services described in this documentation, as scribed by Kristan Márquez RDMS in my presence and it is both accurate and complete. Kristan Flores RDMS am scribing for, and in the presence of, Dr. Christine Quintero and in the presence of the patient. Assessment and Plan Assessment and Plan (1) Phlebitis of superficial vein of left lower extremity: Plan Plan is for patient to start on Xarelto 15 mg bid for 21 days and follow up ultrasound of left leg and consult with physician on 04/01/24. Isaías Flores MD personally performed the services described in this documentation, as scribed by Kristan Márquez RDMS in my presence and it is both accurate and complete. Kristan Flores RDMS am scribing for, and in the presence of, Dr. Christine Quintero and in the presence of the patient.
[2024-03-17 11:32] VITALS: BMI 35.7
--- NOTE | 2024-03-17 11:55 | P.DS_ITS ---
Discharge Plan Discharge Disposition: Home, Self-Care Outpatient Diagnostics: [facility] Facility EST LMTD (Routine) Timeframe: 2 Weeks Facility: [facility] - Location: [facility] Ordered By: Isaías Quintero [facility] EXT Venous LT Limited (Routine) Timeframe: 2 Weeks Facility: [facility] - Location: [facility] Center Ordered By: Isaías Quintero Follow Up Appointments: 04/01/24 Plan of Treatment: Follow up ultrasound left leg and consult with physician Patient to start on Xarelto 15 mg BID for 21 days Print Language: Turkish Discharge Date/Time: 03/17/24 11:57
== END 2024-03-17 11:57 | disposition home or self-care (01) ==
PROVIDERS: PCP Radiology Diagnostic Radiology; Visit Provider Radiology Diagnostic Radiology
DX: I80.02 Phlebitis and thrombophlebitis of superficial vessels of left lower extremity (principal)
CPT/HCPCS: 93971; G0463

== ENCOUNTER 2024-03-22 11:12 | Emergency (ER) | payer MEDICARE, OTHER, SELFPAY ==
[2024-03-22 11:14] VITALS: BP 155/53; PULSE 54; TEMP 36.5; O2SAT 97; BMI 36.3
--- OUTSIDE RECORDS SUMMARY | 2024-03-22 11:33 | XMS_ITS | CCD ---
Author Organization [facility] Care Team Providers Care Access Control Specialist Name Role Phone DEION, PULIDO H Admitting Unavailable FAWWAD, PULIDO H [...] Unavailable JACOB ESPINAL Primary Care Unavailable DEION, Attending Unavailable VIKASH LYNCH Attending Unavailable DEION, PULIDO Referring Unavailable AMAN BECK Attending Unavailable AMAN BECK Referring Unavailable RHIANNON BURR Attending Unavailable DEION, PULIDO Referring Unavailable RHIANNON BURR Attending Unavailable KOJOWAD, PULIDO Referring Unavailable VIKASH LYNCH Attending Unavailable DEION, PULIDO Referring Unavailable AMAN BECK Attending Unavailable DEION, Attending Unavailable CHASIDY ROSS Attending Unavailable DEION, Attending Unavailable GISSELLE MCGILL Attending Unavailable CHASIDY ROSS Attending Unavailable DEION, PULIDO Attending Unavailable NIRMAL MEDELLIN Attending Unavailabl e Allergies Allergy Classification Reported Allergen(s) Allergy Type Date of Onset Reaction(s) Facility (1 source) Penicillin Drug Allergy 0 [facility] (1 source) Penicillin G Drug Allergy anaphylaxis [employer] Other (3 sources) Penicillins; Translations: [PENICILLINS] Propensity [...] 01-18-2024 Mild sinus bradycardia nonspecific ST-T changes [facility] Work Phone: Glucose - FINGER STICKon Glucose [Mass/Vol] 111 mg/dL [employer] Other CBC AUTO DIFFon 02-11-2022 BASO # 0.0 103/ul Normal 0.0-0.1 [facility] Comment on above: Performed By: #### C BC #### [facility] [address] [address] [address] Melinda Quintero Basophils/100 WBC (Bld) 0.7 % Normal 0.2-2.0 [facility] Comment on above: Performed By: #### C BC #### [facility] [address] [address] [address] Melinda Quintero EO # 0.2 103/ul Normal 0.0-0.7 [facility] Comment on above: Performed By: #### C BC #### [facility] [address] [place] [address] Dr. Melinda Quintero Eosinophils/100 WBC (Bld) 2.6 % Normal 0.9-7.0 [facility] Comment on above: Performed By: #### C BC #### [facility] [address] [place] [address] Dr. Melinda Quintero Erythrocyte distribution width (RBC) [Ratio] 13.5 % Normal 11.0-15.0 [facility] Comment on above: Performed By: #### C BC #### [facility] [address] [place] [address] Dr. Melinda Quintero Hematocrit (Bld) [Volume fraction] 44.3 % Normal 42.0-54.0 [facility] Comment on above: Performed By: #### C BC #### [facility] [address] [place] [address] Dr. Melinda Quintero Hemoglobin (Bld) [Mass/Vol] 14.8 g/dL Normal 14.0-18.0 [facility] Comment on above: Performed By: #### C BC #### [facility] [address] [place] [address] Dr. Melinda Quintero IG # 0.02 10e3/ul Normal 0.00-0.03 [facility] Comment on above: Performed By: #### C BC #### [facility] [address] [place] [address] Dr. Melinda Quintero IG % 0.3 % Normal 0.0-0.5 [facility] Comment on above: Performed By: #### C BC #### [facility] [address] [place] [address] Dr. Melinda Quintero LYMPH # 1.3 103/ul Normal 1.2-3.8 [facility] Comment on above: Performed By: #### C BC #### [facility] [address] [place] [address] Dr. Melinda Quintero Lymphocytes/100 WBC (Bld) 20.9 % Normal 20.5-60.0 [facility] Comment on above: Performed By: #### C BC #### [facility] [address] [place] [address] Dr. Melinda Quintero MANUAL DIFF REQ NO Normal [facility] Comment on above: Performed By: #### C BC #### [facility] [address] [place] [address] Dr. Melinda Quintero MCH (RBC) [Entitic mass] 32.5 pg Normal 25.9-34.0 [facility] Comment on above: Performed By: #### C BC #### [facility] [address] [place] [address] Dr. Melinda Quintero MCHC (RBC) [Mass/Vol] 33.4 g/dL Normal 29.9-35.2 [facility] Comment on above: Performed By: #### C BC #### [facility] [address] [place] [address] Dr. Melinda Quintero MCV (RBC) [Entitic vol] 97.4 fL Critically high 80.0-94.0 [facility] Comment on above: Performed By: #### C BC #### [facility] [address] [place] [address] Dr. Melinda Quintero MONO # 0.9 103/ul Critically high 0.3-0.8 [facility] Comment on above: Performed By: #### C BC #### [facility] [address] [place] [address] Dr. Melinda Quintero Monocytes/100 WBC (Bld) 14.4 % Critically high 1.7-12.0 [facility] Comment on above: Performed By: #### C BC #### [facility] [address] [place] [address] Dr. Melinda Quintero NEUT # 3.7 103/ul Normal 1.4-6.5 [facility] Comment on above: Performed By: #### C BC #### [facility] [address] [place] [address] Dr. Melinda Quintero Neutrophils/100 WBC (Bld) 61.1 % Normal 43.0-75.0 [facility] Comment on above: Performed By: #### C BC #### [facility] [address] [place] [address] Dr. Melinda Quintero Platelet mean volume (Bld) [Entitic vol] 11.1 fL Normal 9.5-13.5 [facility] Comment on above: Performed By: #### C BC #### [facility] [address] [place] [address] Dr. Melinda Quintero PLT 168 103/ul Normal 150-450 [facility] Comment on above: Performed By: #### C BC #### [facility] [address] [place] [address] Dr. Melinda Quintero RBC 4.55 106/ul Critically low 4.70-6.10 [facility] Comment on above: Performed By: #### C BC #### [facility] [address] [place] [address] Dr. Melinda Quintero WBC 6.1 103/ul Normal 4.0-11.0 [facility] Comment on above: Performed By: #### C BC #### [facility] [address] [place] [address] Dr. Melinda Quintero PROF 14(COMP METB)on 022 Albumin [Mass/Vol] 3.6 g/dL Normal 3.4-5.0 [facility] Comment on above: Performed By: #### C MP #### [facility] [address] [place] [address] Dr. Melinda Quintero Albumin/Globulin [Mass ratio] 1.0 {ratio} Normal [facility] Comment on above: Performed By: #### C MP #### [facility] [address] [place] [address] Dr. Melinda Quintero ALP [Catalytic activity/Vol] 73 U/L Normal 46-116 [facility] Comment on above: Performed By: #### C MP #### [facility] [address] [place] [address] Dr. Melinda Quintero ALT [Catalytic activity/Vol] 35 U/L Normal 16-63 [facility] Comment on above: Performed By: #### C MP #### [facility] [address] [place] [address] Dr. Melinda Quintero Anion gap [Moles/Vol] 12.6 mmol/L Normal [facility] Comment on above: Performed By: #### C MP #### [facility] [address] [place] [address] Dr. Melinda Quintero AST [Catalytic activity/Vol] 19 U/L Normal 15-37 [facility] Comment on above: Performed By: #### C MP #### [facility] [address] [place] [address] Dr. Melinda Quintero Bilirubin [Mass/Vol] 0.6 mg/dL Normal 0.2-1.0 [facility] Comment on above: Performed By: #### C MP #### [facility] [address] [place] [address] Dr. Melinda Quintero Calcium [Mass/Vol] 8.7 mg/dL Normal 8.5-10.1 [facility] Comment on above: Performed By: #### C MP #### [facility] [address] [place] [address] Dr. Melinda Quintero Chloride [Moles/Vol] 104 mmol/L Normal 98-107 [facility] Comment on above: Performed By: #### C MP #### [facility] [address] [place] [address] Dr. Melinda Quintero CO2 [Moles/Vol] 26.5 mmol/L Normal 21.0-32.0 [facility] Comment on above: Performed By: #### C MP #### [facility] [address] [place] [address] Dr. Melinda Quintero Creatinine [Mass/Vol] 0.93 mg/dL Normal 0.70-1.30 [facility] Comment on above: Performed By: #### C MP #### [facility] [address] [place] [address] Dr. Melinda Quintero EGFR-AF LIBERIAN >60 Normal >=60 [facility] Comment on above: Performed By: #### C MP #### [facility] [address] [place] [address] Dr. Melinda Quintero EGFR-NON AF LIBERIAN >60 Normal >=60 [facility] Comment on above: Performed By: #### C MP #### [facility] [address] [address] [address] Melinda Quintero Globulin (S) [Mass/Vol] 3.6 g/dL Normal [facility] Comment on above: Performed By: #### C MP #### [facility] [address] [address] [address] Melinda Quintero Glucose [Mass/Vol] 105 mg/dL Normal 74-106 [facility] Comment on above: Performed By: #### C MP #### [facility] [address] [address] [address] Melinda Quintero Potassium [Moles/Vol] 4.1 mmol/L Normal 3.5-5.1 [facility] Comment on above: Performed By: #### C MP #### [facility] [address] [place] [address] Dr. Melinda Quintero Protein [Mass/Vol] 7.2 g/dL Normal 6.4-8.2 [facility] Comment on above: Performed By: #### C MP #### [facility] [address] [place] [address] Dr. Melinda Quintero Sodium [Moles/Vol] 139 mmol/L Normal 136-145 [facility] Comment on above: Performed By: #### C MP #### [facility] [address] [place] [address] Dr. Melinda Quintero Urea nitrogen [Mass/Vol] 20.0 mg/dL Critically high 7.0-18.0 [facility] Comment on above: Performed By: #### C MP #### [facility] [address] [place] [address] Dr. Melinda Quintero Urea nitrogen/Creatinine [Mass ratio] 21.5 mg/mg Normal [facility] Comment on above: Performed By: #### C MP #### [facility] [address] [place] [address] Dr. Melinda Quintero VITAMIN D 25 OHon 02-11-2022 VIT D 25-OH 23.4 ng/mL Normal [facility] Comment on above: Performed By: #### V ITAD #### [facility] [address] [place] [address] Dr. Melinda Quintero VIT D RANGES SEE BELOW Normal [facility] Comment on above: Result Comment: <20 ng/mL Vit D deficient 20 - <30 ng/mL Vit D insufficient 30 - 100 ng/mL Vit D sufficient >100 ng/mL Potential Toxicity Performed By: #### V ITAD #### [facility] [address] [place] [address] Dr. Melinda Quintero CBC AUTO DIFFon 12-17-2021 BASO # 0.1 103/ul Normal 0.0-0.1 [facility] Comment on above: Performed By: #### C BC #### [facility] [address] [place] [address] Dr. Melinda Quintero Basophils/100 WBC (Bld) 0.9 % Normal 0.2-2.0 [facility] Comment on above: Performed By: #### C BC #### [facility] [address] [place] [address] Dr. Melinda Quintero EO # 0.2 103/ul Normal 0.0-0.7 [facility] Comment on above: Performed By: #### C BC #### [facility] [address] [place] [address] Dr. Melinda Quintero Eosinophils/100 WBC (Bld) 2.6 % Normal 0.9-7.0 [facility] Comment on above: Performed By: #### C BC #### [facility] [address] [place] [address] Dr. Melinda Quintero Erythrocyte distribution width (RBC) [Ratio] 13.3 % Normal 11.0-15.0 [facility] Comment on above: Performed By: #### C BC #### [facility] [address] [place] [address] Dr. Melinda Quintero Hematocrit (Bld) [Volume fraction] 44.6 % Normal 42.0-54.0 [facility] Comment on above: Performed By: #### C BC #### [facility] [address] [place] [address] Dr. Melinda Quintero Hemoglobin (Bld) [Mass/Vol] 14.7 g/dL Normal 14.0-18.0 [facility] Comment on above: Performed By: #### C BC #### [facility] [address] [place] [address] Dr. Melinda Quintero IG # 0.02 10e3/ul Normal 0.00-0.03 [facility] Comment on above: Performed By: #### C BC #### [facility] [address] [place] [address] Dr. Melinda Quintero IG % 0.3 % Normal 0.0-0.5 [facility] Comment on above: Performed By: #### C BC #### [facility] [address] [place] [address] Dr. Melinda Quintero LYMPH # 2.0 103/ul Normal 1.2-3.8 [facility] Comment on above: Performed By: #### C BC #### [facility] [address] [place] [address] Dr. Melinda Quintero Lymphocytes/100 WBC (Bld) 24.8 % Normal 20.5-60.0 [facility] Comment on above: Performed By: #### C BC #### [facility] [address] [place] [address] Dr. Melinda Quintero MANUAL DIFF REQ NO Normal [facility] Comment on above: Performed By: #### C BC #### [facility] [address] [place] [address] Dr. Melinda Quintero MCH (RBC) [Entitic mass] 32.0 pg Normal 25.9-34.0 [facility] Comment on above: Performed By: #### C BC #### [facility] [address] [place] [address] Dr. Melinda Quintero MCHC (RBC) [Mass/Vol] 33.0 g/dL Normal 29.9-35.2 [facility] Comment on above: Performed By: #### C BC #### [facility] [address] [place] [address] Dr. Melinda Quintero MCV (RBC) [Entitic vol] 97.0 fL Critically high 80.0-94.0 [facility] Comment on above: Performed By: #### C BC #### [facility] [address] [address] [address] Melinda Quintero MONO # 0.8 103/ul Normal 0.3-0.8 [facility] Comment on above: Performed By: #### C BC #### [facility] [address] [address] [address] Melinda Quintero Monocytes/100 WBC (Bld) 10.3 % Normal 1.7-12.0 [facility] Comment on above: Performed By: #### C BC #### [facility] [address] [place] [address] Dr. Melinda Quintero NEUT # 4.9 103/ul Normal 1.4-6.5 [facility] Comment on above: Performed By: #### C BC #### [facility] [address] [place] [address] Dr. Melinda Quintero Neutrophils/100 WBC (Bld) 61.1 % Normal 43.0-75.0 [facility] Comment on above: Performed By: #### C BC #### [facility] [address] [place] [address] Dr. Melinda Quintero Platelet mean volume (Bld) [Entitic vol] 11.2 fL Normal 9.5-13.5 [facility] Comment on above: Performed By: #### C BC #### [facility] [address] [place] [address] Dr. Melinda Quintero PLT 242 103/ul Normal 150-450 [facility] Comment on above: Performed By: #### C BC #### [facility] [address] [place] [address] Dr. Melinda Quintero RBC 4.60 106/ul Critically low 4.70-6.10 [facility] Comment on above: Performed By: #### C BC #### [facility] [address] [place] [address] Dr. Melinda Quintero WBC 8.0 103/ul Normal 4.0-11.0 [facility] Comment on above: Performed By: #### C BC #### [facility] [address] [place] [address] Dr. Melinda Quintero GLYCOHEMOGLOBIN A1Con 2021 ADA RECOMMENDATION SEE BELOW Normal [facility] Comment on above: Result Comment: ADA RECOMMENDED LIMIT 4.0 - 6.0 ADA THERAPEUTIC TARGET < 7.0 ACTION SUGGESTED > 7.0 Performed By: #### A 1C #### [facility] [address] [place] [address] Dr. Melinda Quintero Glucose [Mass/Vol] 128 mg/dL Normal [facility] Comment on above: Performed By: #### A 1C #### [facility] [address] [place] [address] Dr. Melinda Quintero HbA1c (Bld) [Mass fraction] 6.1 % Normal 4.5-6.2 [facility] Comment on above: Performed By: #### A 1C #### [facility] [address] [place] [address] Dr. Melinda Quintero LIPID PROFILEon 12-17-2021 CHOL-HDL RATIO NORM SEE BELOW Normal [facility] Comment on above: Result Comment: 3.3 - 4.4 LOW RISK 4.4 - 7.1 AVERAGE RISK 7.1 - 11.0 MODERATE RISK >11.0 HIGH RISK Performed By: #### L IPID, CMP #### [facility] [address] [place] [address] Dr. Melinda Quintero Cholesterol [Mass/Vol] 86 mg/dL Normal <=200 [facility] Comment on above: Performed By: #### L IPID, CMP #### [facility] [address] [place] [address] Dr. Melinda Quintero Cholesterol in HDL [Mass/Vol] 38 mg/dL Critically low 40-60 [facility] Comment on above: Performed By: #### L IPID, CMP #### [facility] [address] [place] [address] Dr. Melinda Quintero Cholesterol in LDL [Mass/Vol] 33.8 mg/dL Normal [facility] Comment on above: Performed By: #### L IPID, CMP #### [facility] [address] [address] [address] Melinda Quintero Cholesterol.total/Ch olesterol in HDL [Mass ratio] 2.3 {ratio} Normal [facility] Comment on above: Performed By: #### L IPID, CMP #### [facility] [address] [address] [address] Melinda Quintero HDL NORMAL > or = 60 mg/dl - LOW CARDIOVASCULAR RISK <40 mg/dl - HIGH CARDIOVASCULAR RISK Normal [facility] Comment on above: Performed By: #### L IPID, CMP #### [facility] [address] [address] [address] Melinda Quintero LDL CALC NORMAL SEE BELOW Normal [facility] Comment on above: Result Comment: <100 mg/dl OPTIMAL 100 - 129 mg/dl NEAR OR ABOVE OPTIMAL 130 - 159 mg/dl BORDERLINE HIGH 160 - 189 mg/dl HIGH >190 mg/dl VERY HIGH Performed By: #### L IPID, CMP #### [facility] [address] [address] [address] Melinda Quintero Triglyceride [Mass/Vol] 71 mg/dL Normal <=150 [facility] Comment on above: Performed By: #### L IPID, CMP #### [facility] [address] [address] [address] Melinda Quintero VLDL CALC 14.2 mg/dL Normal [facility] Comment on above: Performed By: #### L IPID, CMP #### [facility] [address] [address] [address] Melinda Quintero MICROALBUMIN, RAND URon 12-01 mALB <1.3 Normal <=30.0 [facility] Comment on above: Performed By: #### M ALBR #### [facility] [address] [address] [address] Melinda Quintero PROF 14(COMP METB)on 022 Albumin [Mass/Vol] 3.8 g/dL Normal 3.4-5.0 [facility] Comment on above: Performed By: #### L IPID, CMP #### [facility] [address] [address] [address] Melinda Quintero Albumin/Globulin [Mass ratio] 1.1 {ratio} Normal [facility] Comment on above: Performed By: #### L IPID, CMP #### [facility] [address] [address] [address] Melinda Quintero ALP [Catalytic activity/Vol] 74 U/L Normal 46-116 [facility] Comment on above: Performed By: #### L IPID, CMP #### [facility] [address] [address] [address] Melinda Quintero ALT [Catalytic activity/Vol] 35 U/L Normal 16-63 [facility] Comment on above: Performed By: #### L IPID, CMP #### [facility] [address] [place] [address] Dr. Melinda Quintero Anion gap [Moles/Vol] 9.1 mmol/L Normal [facility] Comment on above: Performed By: #### L IPID, CMP #### [facility] [address] [place] [address] Dr. Melinda Quintero AST [Catalytic activity/Vol] 21 U/L Normal 15-37 [facility] Comment on above: Performed By: #### L IPID, CMP #### [facility] [address] [place] [address] Dr. Melinda Quintero Bilirubin [Mass/Vol] 0.8 mg/dL Normal 0.2-1.0 [facility] Comment on above: Performed By: #### L IPID, CMP #### [facility] [address] [place] [address] Dr. Melinda Quintero Calcium [Mass/Vol] 9.1 mg/dL Normal 8.5-10.1 [facility] Comment on above: Performed By: #### L IPID, CMP #### [facility] [address] [place] [address] Dr. Melinda Quintero Chloride [Moles/Vol] 102 mmol/L Normal 98-107 [facility] Comment on above: Performed By: #### L IPID, CMP #### [facility] [address] [address] [address] Melinda Quintero CO2 [Moles/Vol] 30.0 mmol/L Normal 21.0-32.0 [facility] Comment on above: Performed By: #### L IPID, CMP #### [facility] [address] [address] [address] Melinda Quintero Creatinine [Mass/Vol] 0.90 mg/dL Normal 0.70-1.30 [facility] Comment on above: Performed By: #### L IPID, CMP #### [facility] [address] [address] [address] Melinda Quintero EGFR-AF LIBERIAN >60 Normal >=60 [facility] Comment on above: Performed By: #### L IPID, CMP #### [facility] [address] [address] [address] Melinda Quintero EGFR-NON AF LIBERIAN >60 Normal >=60 [facility] Comment on above: Performed By: #### L IPID, CMP #### [facility] [address] [address] [address] Melinda Quintero Globulin (S) [Mass/Vol] 3.4 g/dL Normal [facility] Comment on above: Performed By: #### L IPID, CMP #### [facility] [address] [address] [address] Melinda Quintero Glucose [Mass/Vol] 116 mg/dL Critically high 74-[address] [facility] Comment on above: Performed By: #### L IPID, CMP #### [facility] [address] [address] [address] Melinda Quintero Potassium [Moles/Vol] 4.1 mmol/L Normal 3.5-5.1 [facility] Comment on above: Performed By: #### L IPID, CMP #### [facility] [address] [address] [address] Melinda Quintero Protein [Mass/Vol] 7.2 g/dL Normal 6.4-8.2 [facility] Comment on above: Performed By: #### L IPID, CMP #### [facility] [address] [address] [address] Melinda Quintero Sodium [Moles/Vol] 137 mmol/L Normal 136-145 [facility] Comment on above: Performed By: #### L IPID, CMP #### [facility] [address] [address] [address] Melinda Quintero Urea nitrogen [Mass/Vol] 21.0 mg/dL Critically high 7.0-18.0 [facility] Comment on above: Performed By: #### L IPID, CMP #### [facility] [address] [address] [address] Melinda Quintero Urea nitrogen/Creatinine [Mass ratio] 23.3 mg/mg Normal [facility] Comment on above: Performed By: #### L IPID, CMP #### [facility] [address] [address] [address] Melinda Quintero VITAMIN B12on 12-17-2021 Cobalamin (Vitamin B12) [Mass/Vol] 438.0 pg/mL Normal 193.0-986.0 [facility] Comment on above: Performed By: #### V ITB12 #### [facility] [address] [address] [address] Melinda Quintero KHADRA Antinuclear Antibodieson 07-17-2021 Antinuclear Abs, IFA Negative Normal . [facility] Comment on above: Result Comment: Nega tive <1:80 Borderline 1:80 Positive >1:80 ICAP nomenclature: AC-0 For more information about Hep-2 cell patterns use ANApatterns.org, the official website for the International Consensus on Antinuclear Antibody (KHADRA) Patterns (ICAP). Performed at: - [facility] [id number] Pet Groomer: Srikanth Hummel PhD, Phone: [phone] PERFORMED BY: [place] [id number] PATHOLOGIST PAPERBOARD MACHINE OPERATOR APRRISH TREVIZO M.D. Performed By: #### P TH, ESR, CMP, CRP, CBC, TSH3 #### [address] #### KHADRA #### [facility] , C-Reactive Proteinon 021 C-Reactive Protein 0.5 mg/dL Normal 0.0-1.0 [facility] Comment on above: Performed By: #### P TH, ESR, CMP, CRP, CBC, TSH3 #### [facility] [address] [place] [address] [place] #### KHADRA #### [facility] , Complete Blood Count Auto Di ffon 07-17-2021 Basophils (Bld) [#/Vol] 0.1 10*3/uL Normal 0.0-0.2 [facility] Comment on above: Performed By: #### P TH, ESR, CMP, CRP, CBC, TSH3 #### [address] #### KHADRA #### [facility] , Basophils/100 WBC (Bld) 1.0 % Normal . [facility] Comment on above: Performed By: #### P TH, ESR, CMP, CRP, CBC, TSH3 #### [facility] [address] [place] [address] [place] #### KHADRA #### [facility] , Eosinophils (Bld) [#/Vol] 0.2 10*3/uL Normal 0.0-0.45 [facility] Comment on above: Performed By: #### P TH, ESR, CMP, CRP, CBC, TSH3 #### [place] [address] [place] #### KHADRA #### [facility] , Eosinophils/100 WBC (Bld) 2.8 % Normal . [facility] Comment on above: Performed By: #### P TH, ESR, CMP, CRP, CBC, TSH3 #### [place] [address] [place] #### KHADRA #### [facility] , Erythrocyte distribution width (RBC) [Ratio] 15.4 % High 12.0-14.8 [facility] Comment on above: Performed By: #### P TH, ESR, CMP, CRP, CBC, TSH3 #### [address] #### KHADRA #### [facility] , Hematocrit (Bld) [Volume fraction] 45.9 % Normal 38.8-50.0 [facility] Comment on above: Performed By: #### P TH, ESR, CMP, CRP, CBC, TSH3 #### [address] #### KHADRA #### [facility] , Hemoglobin (Bld) [Mass/Vol] 15.1 g/dL Normal 13.0-17.0 [facility] Comment on above: Performed By: #### P TH, ESR, CMP, CRP, CBC, TSH3 #### [address] #### KHADRA #### [facility] , Lymphocytes (Bld) [#/Vol] 1.8 10*3/uL Normal 1.00-4.8 [facility] Comment on above: Performed By: #### P TH, ESR, CMP, CRP, CBC, TSH3 #### [address] #### KHADRA #### [facility] , Lymphocytes/100 WBC (Bld) 24.5 % Normal . [facility] Comment on above: Performed By: #### P TH, ESR, CMP, CRP, CBC, TSH3 #### [facility] [address] [place] [address] [place] #### KHADRA #### [facility] , MCH (RBC) [Entitic mass] 31.2 pg Normal 27.5-35.2 [facility] Comment on above: Performed By: #### P TH, ESR, CMP, CRP, CBC, TSH3 #### [address] [place] [address] [place] #### KHADRA #### [facility] , MCV (RBC) [Entitic vol] 94.6 fL Normal 83.5-101 [facility] Comment on above: Performed By: #### P TH, ESR, CMP, CRP, CBC, TSH3 #### [facility] [address] [place] [address] [place] #### KHADRA #### [facility] , Mean Corpuscular HGB Conc 32.9 g/dL Normal 32.5-35.6 [facility] Comment on above: Performed By: #### P TH, ESR, CMP, CRP, CBC, TSH3 #### [address] #### KHARDA #### [facility] , Monocytes (Bld) [#/Vol] 0.7 10*3/uL Normal 0.0-0.8 [facility] Comment on above: Performed By: #### P TH, ESR, CMP, CRP, CBC, TSH3 #### [place] [address] [place] #### KHADRA #### [facility] , Monocytes/100 WBC (Bld) 10.1 % Normal . [facility] Comment on above: Performed By: #### P TH, ESR, CMP, CRP, CBC, TSH3 #### [place] [address] [place] #### KHADRA #### [facility] , Neutrophils (Bld) [#/Vol] 4.5 10*3/uL Normal 1.8-7.7 [facility] Comment on above: Performed By: #### P TH, ESR, CMP, CRP, CBC, TSH3 #### [place] [address] [place] #### KHADRA #### [facility] , Neutrophils/100 WBC (Bld) 61.6 % Normal . [facility] Comment on above: Performed By: #### P TH, ESR, CMP, CRP, CBC, TSH3 #### [facility] [address] [place] [address] [place] #### KHADRA #### [facility] , Nucleated RBC/100 WBC (Bld) [Ratio] 0.0 % Normal 0-0.5 [facility] Comment on above: Performed By: #### P TH, ESR, CMP, CRP, CBC, TSH3 #### [place] [address] [place] #### KHADRA #### [facility] , Platelet mean volume (Bld) [Entitic vol] 9.5 fL Normal 6.6-10.1 [facility] Comment on above: Performed By: #### P TH, ESR, CMP, CRP, CBC, TSH3 #### [place] [address] [place] #### KHADRA #### [facility] , Platelets (Bld) [#/Vol] 192 10*3/uL Normal 150-450 [facility] Comment on above: Performed By: #### P TH, ESR, CMP, CRP, CBC, TSH3 #### [address] #### KHADRA #### [facility] , RBC (Bld) [#/Vol] 4.85 10*6/uL Normal 3.90-5.60 [facility] Comment on above: Performed By: #### P TH, ESR, CMP, CRP, CBC, TSH3 #### [place] [address] [place] #### KHADRA #### [facility] , WBC (Bld) [#/Vol] 7.4 10*3/uL Normal 4.5-11.0 [facility] Comment on above: Performed By: #### P TH, ESR, CMP, CRP, CBC, TSH3 #### [facility] [address] [place] [address] [place] #### KHADRA #### [facility] , Comprehensive Metabolic Pane tristan 07-17-2021 Albumin [Mass/Vol] 4.0 g/dL Normal 3.2-5.5 [facility] Comment on above: Performed By: #### P TH, ESR, CMP, CRP, CBC, TSH3 #### [facility] [address] [place] [address] [place] #### KHADRA #### [facility] , Albumin/Globulin [Mass ratio] 1.4 {ratio} Normal [facility] Comment on above: Performed By: #### P TH, ESR, CMP, CRP, CBC, TSH3 #### [address] #### KHADRA #### [facility] , ALP [Catalytic activity/Vol] 70 U/L Normal 32-92 [facility] Comment on above: Performed By: #### P TH, ESR, CMP, CRP, CBC, TSH3 #### [facility] [address] [place] [address] [place] #### KHADRA #### [facility] , ALT [Catalytic activity/Vol] 27 U/L Normal 10-60 [facility] Comment on above: Performed By: #### P TH, ESR, CMP, CRP, CBC, TSH3 #### [facility] [address] [place] [address] [place] #### KHADRA #### [facility] , AST [Catalytic activity/Vol] 26 U/L Normal 10-42 [facility] Comment on above: Performed By: #### P TH, ESR, CMP, CRP, CBC, TSH3 #### [facility] [address] [place] [address] [place] #### KHADRA #### [facility] , Bilirubin [Mass/Vol] 0.8 mg/dL Normal 0.3-1.2 [facility] Comment on above: Performed By: #### P TH, ESR, CMP, CRP, CBC, TSH3 #### [facility] [address] [place] [address] [place] #### KHADRA #### [facility] , Calcium [Mass/Vol] 9.4 mg/dL Normal 8.2-10.2 [facility] Comment on above: Performed By: #### P TH, ESR, CMP, CRP, CBC, TSH3 #### [facility] [address] [place] [address] [place] #### KHADRA #### [facility] , Chloride [Moles/Vol] 103 mmol/L Normal 95-114 [facility] Comment on above: Performed By: #### P TH, ESR, CMP, CRP, CBC, TSH3 #### [address] #### KHADRA #### [facility] , CO2 [Moles/Vol] 26.2 mmol/L Normal 22.0-30.0 [facility] Comment on above: Performed By: #### P TH, ESR, CMP, CRP, CBC, TSH3 #### [place] [address] [place] #### KHADRA #### [facility] , Creatinine [Mass/Vol] 0.80 mg/dL Normal 0.64-1.27 [facility] Comment on above: Performed By: #### P TH, ESR, CMP, CRP, CBC, TSH3 #### [place] [address] [place] #### KHADRA #### [facility] , Estimated GFR ( Morenita > 60 Normal [facility] Comment on above: Result Comment: GFR estimated reference range: According to KDOQI guidelines, <60 ml/min/1.73m2 is sufficient to diagnose a patient with chronic kidney disease. Performed By: #### P TH, ESR, CMP, CRP, CBC, TSH3 #### [place] [address] [place] #### KHADRA #### [facility] , Estimated GFR (Non- Am > 60 Normal [facility] Comment on above: Performed By: #### P TH, ESR, CMP, CRP, CBC, TSH3 #### [place] [address] [place] #### KHADRA #### [facility] , Globulin (S) [Mass/Vol] 2.9 g/dL Normal [facility] Comment on above: Performed By: #### P TH, ESR, CMP, CRP, CBC, TSH3 #### [facility] [address] [place] [address] [place] #### KHADRA #### [facility] , Glucose [Mass/Vol] 95 mg/dL Normal 70-100 [facility] Comment on above: Result Comment: [facility] Glucose Reference Range is dependent on time and content of last meal. Glucose of more than 200 mg/dL in a nonstressed, ambulatory subject supports the diagnosis of Diabetes Mellitus. ADA recommended reference range Performed By: #### P TH, ESR, CMP, CRP, CBC, TSH3 #### [place] [address] [place] #### KHADRA #### [facility] , Potassium [Moles/Vol] 4.3 mmol/L Normal 3.5-5.1 [facility] Comment on above: Performed By: #### P TH, ESR, CMP, CRP, CBC, TSH3 #### [place] [address] [place] #### KHADRA #### [facility] , Protein [Mass/Vol] 6.9 g/dL Normal 6.1-7.9 [facility] Comment on above: Performed By: #### P TH, ESR, CMP, CRP, CBC, TSH3 #### [place] [address] [place] #### KHADRA #### [facility] , Sodium [Moles/Vol] 139 mmol/L Normal 136-146 [facility] Comment on above: Performed By: #### P TH, ESR, CMP, CRP, CBC, TSH3 #### [address] #### KHADRA #### [facility] , Urea nitrogen [Mass/Vol] 16 mg/dL Normal 9-23 [facility] Comment on above: Performed By: #### P TH, ESR, CMP, CRP, CBC, TSH3 #### [address] #### KHADRA #### [facility] , Erythrocyte Sedimentation Ra karla 07-17-2021 ESR (Bld) [Velocity] 21 mm/h High 0-19 [facility] Comment on above: Result Comment: PERF ORMED BY: [place] [id number] PATHOLOGIST PAPERBOARD MACHINE OPERATOR PARRISH TREVIZO M.D. Performed By: #### P TH, ESR, CMP, CRP, CBC, TSH3 #### [address] #### KHADRA #### [facility] , Parathyroid Hormone Intacton 07-17-2021 Parathyroid Hormone Intact 56.3 pg/mL Normal 12- [facility] Comment on above: Result Comment: PERF ORMED BY: [place] [id number] PATHOLOGIST PAPERBOARD MACHINE OPERATOR PARRISH TREVIZO M.D. Performed By: #### P TH, ESR, CMP, CRP, CBC, TSH3 #### [facility] [address] [place] [address] [place] #### KHADRA #### [facility] , Thyroid Stimulating Hormoneo n 07-17-2021 TSH Qn 3.24 m[IU]/L Normal 0.45-5.33 [facility] Comment on above: Performed By: #### P TH, ESR, CMP, CRP, CBC, TSH3 #### [place] [address] [place] #### KHADRA #### [facility] , XR hand BI 2Von 07-17-2021 XR hand BI 2V [facility] [place] [address] [place] [address] XRay Report Signed Patient: Pantera Del Cid MR#: [id number] 5 : 1955 Acct:[id number] Age/Sex: 66 / M ADM Date: 07/17/21 Loc: ICXD Room: Type: [facility] Attending Dr: Michael Barrett MD Ordering Provider: Michael Barrett MD Date of Service: 07/17/21 XR/XR foot BI 2V: PAIN ([id number]) XR/XR hand BI 2V: PAIN Copies to: [...] Chilango Mcclure M.D.07/17/2021 3:05 PM Dictation Location: [place] [address] Transcribed By: [facility] 07/17/21 1505 Dictated By: Chilango Mcclure DO 07/17/21 1502 Signed By: 07/17/21 1505 Normal [facility] XR wrist LT min 3V*on 2020 XR wrist LT min 3V* [facility] [place] [address] XRay Report Signed Patient: Pantera Del Cid MR#: [id number] 5 : 1955 Acct:[id number] Age/Sex: 65 / M ADM Date: 01/14/21 Loc: XDUCLY Room: Type: [facility] Attending Dr: Smiley MONTES Ordering Provider: SMILEY [...] Karla Denton M.D.01/14/2021 3:29 PM Dictation Location: [place] [address] Transcribed By: [facility] 01/14/21 1529 Dictated By: Karla Denton MD 01/14/21 1519 Signed By: 01/14/21 1529 [facility] Vital Signs Date Time Vital Sign Value Performing Clinician Facility 01-18-2024 14:47-0400 Diastolic blood pressure 72 mm[Hg] Yadiel Lacey MD Work Phone: [facility] 01-18-2024 14:47-0400 Heart rate 53 /min Yadiel Lacey MD Work Phone: [facility] 01-18-2024 14:47-0400 Systolic blood pressure 114 mm[Hg] Yadiel Lacey MD Work Phone: [facility] 01-18-2024 14:46-0400 Body height 182.9 cm Yadiel Lacey MD Work Phone: [facility] 01-18-2024 14:46-0400 Body mass index (BMI) [Ratio] 36.35 kg/m2 Yadiel Lacey MD Work Phone: [facility] 01-18-2024 14:46-0400 Body weight 121.56 kg Yadiel Lacey MD Work Phone: [facility] 05-07-2023 11:20-0400 Body height 182.88 cm Leandra Villalobos Other [facility] Other 05-07-2023 11:20-0400 Body mass index (BMI) [Ratio] 33.22 kg/m2 Leandra Villalobos Other [facility] Other 05-07-2023 11:20-0400 Body temperature 98.2 [degF] Leandra Villalobos Other [facility] Other 05-07-2023 11:20-0400 Body weight 111.13 kg Leandra Villalobos Other [facility] Other 05-07-2023 11:20-0400 Diastolic blood pressure 72 mm[Hg] Leandra Villalobos Other [facility] [facility] Other 05-07-2023 11:20-0400 Respiratory rate 18 /min Leandra Villalobos Other [facility] [facility] Other 05-07-2023 11:20-0400 SaO2% (BldA) [Mass fraction] 93 % Leandra Villalobos Other [facility] [facility] Other 05-07-2023 11:20-0400 Systolic blood pressure 118 mm[Hg] Leandra Villalobos Other [facility] Other Encounters Encounter Date Encounter Type Care Provider Facility Start: 03-17-2024 End: 03-17-2024 ambulatory NIRMAL MEDELLIN Not Available Start: 02-16-2024 End: 02-16-2024 ambulatory SHAIKH DEION Not Available Start: 02-01-2024 End: 02-01-2024 ambulatory CHASIDY Fernandez APLING Not Available Start: 01-20-2024 End: 01-20-2024 ambulatory GISSELLE MCGILL Not Available Start: 01-19-2024 End: 01-19-2024 ambulatory SHAIKH DEION Not Available Start: 01-18-2024 Encounter for preprocedural cardiovascular examination [facility] Start: 01-18-2024 End: 01-18-2024 Office consultation new/estab patient 60 min Yadiel Lacey MD Work Phone: [facility] Comment on above: Bilateral carotid ar leslie stenosis (Primary Dx); Preoperative cardiovascular examination; Essential hypertension; BMI 36.0-36.9,adult; Sinus bradycardia; Diabetes mellitus type II, non insulin dependent (Multi) Start: 01-18-2024 End: 01-18-2024 ambulatory [facility] Start: 01-18-2024 End: 01-18-2024 Encounter for preprocedural cardiovascular examination [facility] Start: 01-18-2024 End: 01-18-2024 Patient encounter status Yadiel Lacey MD Work Phone: [facility] Start: 01-04-2024 End: 01-04-2024 ambulatory CHASIDY Fernandez APLING Not Available Start: 12-23-2023 End: 12-23-2023 Evaluation and management of inpatient [facility] Start: 12-03-2023 End: 12-03-2023 ambulatory SHAIKH DEION [...] 05-07-2023 End: 05-07-2023 ambulatory Leandra Villalobos Other [employer] Other Start: 05-07-2023 Office outpatient vi sit 15 minutes Leandra Villalobos [facility] Start: 02-11-2022 End: 02-12-2022 ambulatory SHAIKH Enzo ALBARRAN Facility:[facility] Start: 12-17-2021 End: 12-18-2021 ambulatory SHAIKH Enzo ALBARRAN Facility: Procedures Date Procedure Procedure Detail Performing Clinician Start: 01-18-2024 Ecg routine ecg w/le ast 12 lds w/i&r Yadiel Lacey MD Work Phone: Plan of Treatment Date Care Activity Detail Author Start: 06-27-2025 DTaP/Tdap/Td Vaccines (2 - Td or Tdap) DTaP/Tdap/Td Vaccines (2 - Td or Tdap) [facility] Start: 04-03-2023 COVID-19 Vaccine () COVID-19 Vaccine ( season) [facility] Start: 11-08-2021 Pneumococcal Vaccine: 65+ Years (2 of 2 - PCV) Pneumococcal Vaccine: 65+ Years (2 of 2 - PCV) [facility] Start: 2021 Abdominal aortic aneurysm screening Abdominal Aortic Aneurysm (AAA) Screening [facility] Start: 2016 RSV patients and/or patients aged 60+ years (1 - 1-dose 60+ series) RSV patients and/or patients aged 60+ years (1 - 1-dose 60+ series) [facility] Start: 2006 Zoster Vaccines (1 of 2) Zoster Vaccines (1 of 2) [facility] Start: 1975 Urine screening for protein Diabetes: Urine Protein Screening [facility] Start: 1974 Hepatitis C screening Hepatitis C Screening [facility] Start: 1966 Diabetic foot examination Diabetes: Foot Exam [facility] Start: 1966 Glaucoma screening Diabetes: Retinopathy Screening [facility] Start: 1956 Hemoglobin A1c measurement Diabetes: Hemoglobin A1C [facility] Start: 1956 Lipid panel Lipid Panel [facility] Start: 1956 Medicare Annual Wellness Visit Medicare Annual Wellness Visit (AWV) [facility] Start: 1956 Screening for malignant neoplasm of colon [facility] Immunizations Immunization Date Immunization Notes Care Provider Fa cili 06-24-2023 Influenza, Seasonal, Quadrivalent, Adjuvanted Yadiel Lacey MD Work Phone: [facility] Work Phone: 11-08-2020 pneumococcal polysaccharide vaccine, 23 valent Yadiel Lacey MD Work Phone: [facility] Work Phone: 05-12-2018 seasonal influenza, intradermal, preservative free Yadiel Lacey MD Work Phone: [facility] Work Phone: 07-09-2017 influenza, seasonal, injectable Leandra Villalobos Other [employer] Other 06-12-2016 seasonal influenza, intradermal, preservative free Yadiel Lacey MD Work Phone: [facility] Work Phone: 06-27-2015 tetanus toxoid, redu kurt diphtheria toxoid, and acellular pertussis vaccine, adsorbed Yadiel Lacey MD Work Phone: [facility] Work Phone: Payers Date Payer Category Payer Medicare MEDICARE MEDICAR E PART A AND B [id number] 2023-Present [address] [place] [address] [id number] 2023 Unknown [facility] [id number] 2023-Present [phone] [address] [place] [address] [id number] 2023 Unknown [id number] 2022 Unknown [id number] 2.16.8 [id number] 2021 Medicare [id number] 1959 Unknown [id number] 1955 Unknown [id number] 2.16.840.1.992655.3.579.2.593 1956 Unknown [id number] 2.16.840.1.777173.3.579.2.593 1956 Unknown [id number] 2.16.840.1.990833.3.579.2.128 6 1956 Unknown [id number] 2.16.840.1.150307.3.579.2.124 4 1956 Unknown [id number] 2.16.840.1.047244.3.579.2.125 9 1956 Unknown [id number] 2.16.840.1.599187.3.579.2.125 9 1956 Unknown [id number] 2.16.840.1.302758.3.579.2.125 9 1956 Unknown [id number] 2.16.840.1.825814.3.579.2.125 9 1956 Unknown [id number] 2.16.840.1.615354.3.579.2.125 9 1955 Unknown [id number] 2.16.840.1.672851.3.579.2.125 9 1956 Unknown [id number] 2.16.840.1.788464.3.579.2.125 9 1956 Unknown [id number] 2.16.840.1.756291.3.579.2.125 1956 Unknown [id number] 2.16.840.1.238867.3.579.2.125 1956 Unknown [id number] 2.16.840.1.559719.3.579.2.125 1956 Unknown [id number] 2.16.840.1.549588.3.579.2.125 9 1955 Unknown [id number] 2.16.840.1.199596.3.579.2.125 1956 Unknown [id number] 2.16.840.1.260026.3.579.2.125 1956 Unknown [id number] 2.16.840.1.759685.3.579.2.125 1956 Unknown [id number] 2.16.840.1.590603.3.579.2.125 9 Medicare [id number] [id number] Social History Date Type Detail Facility Unknown if ever smoked [facility] Other Start: 01-18-2024 Sex Assigned At [facility] [employer] Other Start: 01-18-2024 [facility] Work Phone: History of tobacco use Current smoker [facility] Work Phone: History of tobacco use Cigarette Smoker [facility] Work Phone: Start: 01-18-2024 Tobacco use and exposure Smokeless tobacco non-user [facility] Work Phone: Start: 01-18-2024 Alcoholic beverage intake Current drinker of alcohol (finding) [facility] Work Phone: Start: 01-18-2024 History of Social function [facility] Work Phone: Start: 1955 Sex assigned at Not on file [facility] Work Phone: Start: 01-08-2024 End: 01-18-2024 Exposure to SARS-CoV-2 (event) Not sure [facility] History of Present illness Narrative [...] Scribe Attestation By signing my name below, IMariajose LPN, Scribe attest that this documentation has been [...] discussion and plan. documented in this encounter [facility] Work Phone: Instructions 01-18-2024 Patient [...] cannot be sent through Care Everywhere.DASH Diet (Tamazight)documented in this encounter [facility] Work Phone: Note 01-18-2024 Addendum Note - Yadiel Lacey MD - 01/18/2024 2:30 PM EDT Note Date & Type Note Facility 01-18-2024 Miscellaneous Notes Addended by: YADIEL LACEY on: 01/18/2024 04:19 PM Modules accepted: Level of Service documented in this encounter [facility] Work Phone: Clinical Note 01-18-2024 Addendum Note - Yadiel Lacey MD - 01/18/2024 2:30 PM EDT Note Date & Type Note Facility 01-18-2024 Note Addended by: YADIEL LINDSAY on: 01/18/2024 04:19 PM Modules accepted: Level of Service [facility] Work Phone: Evaluation note 05-07-2023 [...] regular lab work, etc. Discussed use of [id number] r KELBY hose, elevation to help with lower extremity edema. Patient verbalized understanding. [facility] [employer] [facility] Other History general Narrative - Reported 12-02-2003 [...] Hospitalization History allerigic reaction to PC N [facility] [employer] [facility] Other Evaluation note Note Date & Type [...] stated as uncontrolled documented in this encounter [facility] Work Phone: Summary Purpose Family [...] ECG 12 Lead Yadiel Lacey MD [address] [facility] 2, [address] [address] Referral ID Status Reason Start Date Expiration Date V isits Requested Visits Authorized [id number] Authorized 01/18/2024 01/17/2025 1 1 Additional Source Comments (unrecognized sect ion and content) No Status Records FoundNo Status Records FoundNo Status Records FoundNo Status Records FoundNo Status Records Found INFORMATION SOURCE (unrecogn ized section and content) DATE CREATED AUTHOR 09/16/2021 [facility] DATE CREATED AUTHOR AUTHOR'S ORGANIZ ATION 02/19/2022 [facility] DATE CREATED AUTHOR AUTHOR'S ORGANIZ ATION 12/25/2023 [facility] DATE CREATED AUTHOR AUTHOR'S ORGANIZ ATION 01/20/2024 [facility] DATE CREATED AUTHOR AUTHOR'S ORGANIZ ATION 03/19/2024 [facility] dical Specialists EPIC REASON FOR VISIT (unrecogniz ed section and content) Reason Comments Pre-op Clearance [facility] venu marrero Specialty Diagnoses / Procedures Referred By Rolan cage Referred To Contact Diagnoses Preoperative cardiovascular examination Procedures ECG 12 Lead Yadiel Lacey MD [address] [facility] 2, [facility] [[email or web address] [address] [place] [address] Referral ID Status Reason Start Date Expiration Date V isits Requested Visits Authorized [id number] Authorized 01/18/2024 01/17/2025 1 1 Care Teams (unrecognized sec tion and content) Access Control Specialist Relationship Specialty Start Date End Date Jacob Espinal MD [address] [facility] [[email or web address]] [address] [place] [address] PCP - General Internal Medicine 01/18/24 FOR [...] BE BASED ON THE PRIMARY CLINICAL RECORDS. [email or web address] [facility]. provides no warranty or guarantee of the accuracy or completeness of information in this document.
[2024-03-22 11:50] LABS: Bilirubin Urine NEGATIVE (NEGATIVE); Blood Urine LARGE (NEGATIVE); Clarity Urine CLEAR (CLEAR); Color Urine YELLOW (YELLOW); Glucose Urine UA NEGATIVE (NEGATIVE); Ketones Urine NEGATIVE (NEGATIVE); Leukocyte Esterase Urine NEGATIVE (NEGATIVE); Nitrite Urine NEGATIVE (NEGATIVE); Protein Urine TRACE mg/dL (NEG/TRACE); Specific Gravity Urine >=1.030 (1.005-1.025); Urobilinogen Urine 0.2 EU/dL (0.2-1.0); pH Urine 5.5 (5.0-9.0)
[2024-03-22 11:52] LABS: Urine Microscopic Indicated YES
[2024-03-22 11:54] LABS: Basophils Absolute Auto 0.1 10^3/uL (0.0-0.1); Basophils Percent Auto 0.7 % (0.2-2.0); Eosinophils Absolute Auto 0.2 10^3/uL (0.0-0.7); Eosinophils Percent Auto 2.1 % (0.9-7.0); Hematocrit 42.4 % (42.0-54.0); Hemoglobin 14.7 g/dL (14.0-18.0); Immature Granulocytes Abs Auto 0.02 10^3/uL (0.00-0.03); Immature Granulocytes Pct Auto 0.3 % (0.0-0.5); Lymphocytes Absolute Auto 1.7 10^3/uL (1.2-3.8); Lymphocytes Percent Auto 22.8 % (20.5-60.0); Mean Corpuscular HGB Conc 34.7 g/dL (29.9-35.2); Mean Corpuscular Hemoglobin 31.9 pg (25.9-34.0); Mean Platelet Volume 10.3 fL (9.5-13.5); Monocytes Absolute Auto 0.7 10^3/uL (0.3-0.8); Monocytes Percent Auto 9.6 % (1.7-12.0); Neutrophils Absolute Auto 4.8 10^3/uL (1.4-6.5); Neutrophils Percent Auto 64.5 % (43.0-75.0); Platelet Count 179 10^3/uL (150-450); Red Blood Count 4.61 10^6/uL (4.70-6.10); Red Cell Distribution Width 13.1 % (11.0-15.0); White Blood Count 7.5 10^3/uL (4.0-11.0)
[2024-03-22 11:57] LABS: Bacteria Urine SMALL #/HPF (NONE SEEN); Mucus Urine SMALL (NONE SEEN); RBC Urine 20-50 #/HPF (0-2); Squamous Epithelial Cell Urine FEW #/LPF (NONE/RARE); WBC Urine NONE SEEN #/HPF (NONE SEEN)
[2024-03-22 11:58] LABS: Cast Seen? NONE SEEN #/LPF (NONE SEEN); Crystals Seen? None Seen #/HPF (None Seen); Urine Culture Indicated YES
[2024-03-22 12:08] LABS: Alanine Aminotransferase 35 U/L (16-63); Albumin Globulin Ratio 1.2; Albumin Level 3.8 g/dL (3.4-5.0); Alkaline Phosphatase 84 U/L (46-116); Anion Gap 14.6; Aspartate Amino Transferase 26 U/L (15-37); BUN Creatinine Ratio 19.1; Bilirubin Total 0.6 mg/dL (0.2-1.0); Calcium 9.3 mg/dL (8.5-10.1); Carbon Dioxide 24.6 mmol/L (21.0-32.0); Chloride 105 mmol/L (98-107); Estimated GFR (African America >60 (>=60); Estimated GFR (Non-African Ame >60 (>=60); Globulin 3.2 g/dL; Glucose 123 mg/dL (74-106); Potassium 4.2 mmol/L (3.5-5.1); Sodium 140 mmol/L (136-145)
--- NOTE | 2024-03-22 12:56 | ED_ITS ---
HPI HPI - General Adult General Chief complaint: Urogenital-Male Stated complaint: BLOOD IN URINE Time Seen by Provider: 03/22/24 11:14 Source: patient Mode of arrival: walk-in History of Present Illness HPI narrative: Patient presents to ED complaining of dark urine. He had a procedure on his veins on the left leg on March 17. He was started on Xarelto postoperatively to prevent DVT. Patient states he took Xarelto yesterday and then again today and he has noticed some dark urine. He then this morning had more blood in the urine and some clots. He states he is able to pee he has no obstruction but he just noticed it was dark so he came into the ED for further evaluation. No pain no syncope no nausea vomiting. He denies shortness of breath. He is alert and oriented in no acute distress at this time. Related Data Home Medications ?Medication ?Instructions ?Recorded ?Confirmed atorvastatin 80 mg tablet 80 mg PO QPM 02/26/24 03/22/24 hydroxychloroquine PO 02/26/24 lisinopril 10 1 tab PO DAILY 02/26/24 03/22/24 mg-hydrochlorothiazide 12.5 mg tablet magnesium oxide-magnesium amino cap PO 02/26/24 acid chelate 300 mg capsule metformin 500 mg tablet 500 mg PO BID 02/26/24 03/22/24 naproxen sodium 220 mg capsule 220 mg PO BID PRN pain 02/26/24 02/26/24 (Aleve) rivaroxaban 15 mg tablet (Xarelto) 15 mg PO BID 03/17/24 03/22/24 fluticasone propionate 50 intranasal 03/22/24 mcg/actuation nasal spray,suspension sildenafil 100 mg tablet mg 03/22/24 testosterone cypionate 200 mg/mL mg 03/22/24 intramuscular oil Allergies Allergy/AdvReac Type Severity Reaction Status Date / Time amoxicillin [From Augmentin] Allergy Severe Difficulty Verified 02/19/24 15:40 Breathing clavulanic acid Allergy Severe Difficulty Verified 02/19/24 15:40 [From Augmentin] Breathing penicillamine Allergy Severe Anaphylaxis Verified 02/19/24 15:40 Penicillins Allergy Swelling Verified 02/26/24 12:43 of Lip/Tongue/Throat Opioid HPI Opioid Management Most Recent Opioid Data: No Data to Display Review of Systems ROS Status of ROS 10 or more systems reviewed and unremark able except as noted in history and below PFSH PFSH Medical History (Updated 03/22/24 @ 12:41 by Josefa Mauricio DO) FH: total knee replacement ?Z82.69 - Family history of other diseases of the musculoskeletal system and connective tissue (ICD-10) Rotator cuff arthropathy ?M12.819 - Other specific arthropathies, not elsewhere classified, unspecified shoulder (ICD-10) Restless leg ?G25.81 - Restless legs syndrome (ICD-10) Gout ?M10.9 - Gout, unspecified (ICD-10) Type 2 diabetes mellitus ?E11.9 - Type 2 diabetes mellitus without complications (ICD-10) Peripheral neuropathy ?G62.9 - Polyneuropathy, unspecified (ICD-10) Hypertension ?I10 - Essential (primary) hypertension (ICD-10) Anxiety ?F41.9 - Anxiety disorder, unspecified (ICD-10) Hyperlipemia ?E78.5 - Hyperlipidemia, unspecified (ICD-10) Depression ?F32.A - Depression, unspecified (ICD-10) Arthritis ?M19.90 - Unspecified osteoarthritis, unspecified site (ICD-10) Phlebitis of superficial vein of left lower extremity ?I80.02 - Phlebitis and thrombophlebitis of superficial vessels of left lower extremity (ICD-10) Varicose veins of bilateral lower extremities with pain ?I83.813 - Varicose veins of bilateral lower extremities with pain (ICD-10) Surgical History (Updated 02/26/24 @ 12:39 by Ryder Flores) H/O heart artery stent ?Z95.5 - Presence of coronary angioplasty implant and graft (ICD-10) Family History (Updated 02/26/24 @ 12:40 by Ryder Flores) Other Family history of diabetes mellitus Family history of hypertension Varicose veins of bilateral lower extremities with pain Exam Narrative Exam Narrative: General: alert, no acute distress Cardiovascular: regular rate and rhythm, normal peripheral perfusion. Respiratory: Lungs CTA, respirations non labored. Extremities: no deformity, no trauma. Compression stocking on the left extremity. No severe pain Swelling as to be expected Neurological: oriented x 4, LOC appropriate for age. Abdomen soft nontender nondistended Constitutional Vital Signs, click to edit/add: Last Vital Signs Temp 97.7 F 03/22/24 11:14 Pulse 54 L 03/22/24 11:14 Resp 18 08/20/24 11:14 BP 155/53 H 03/22/24 11:14 Pulse Ox 97 03/22/24 11:14 O2 Del Method Room Air 03/22/24 11:14 Course Vital Signs Vital signs: Vital Signs Temperature 97.7 F 03/22/24 11:14 Pulse Rate 54 L 03/22/24 11:14 Respiratory Rate 18 03/22/24 11:14 Blood Pressure 155/53 H 03/22/24 11:14 Pulse Oximetry 97 03/22/24 11:14 Oxygen Delivery Method Room Air 03/22/24 11:14 Temperature 97.7 F 03/22/24 11:14 Pulse Rate 54 L 03/22/24 11:14 Respiratory Rate 18 03/22/24 11:14 Blood Pressure 155/53 H 03/22/24 11:14 Pulse Oximetry 97 03/22/24 11:14 Oxygen Delivery Method Room Air 03/22/24 11:14 Medical Decision Making MDM Narrative Medical decision making narrative: Patient's urine shows blood in the urine but no UTI. BUN/creatinine are normal. Hemoglobin is normal. Again patient is able to urinate he has no obstruction blood clot. I called and spoke to Dr. Fuentes who is covering for Dr. Olimpia Rosario who did the procedure. He states to DC The Xarelto, continue 325 mg aspirin daily and follow-up in the office next week. I also instructed the patient to hydrate well with water in order to flush his urinary system. Please return immediately to the ER if you are unable to urinate. Patient and family are comfortable care plan for home. Patient also reports that he takes a lot of Aleve and I told him to switch to plain Tylenol for now until the blood in the urine calms down. Differential Diagnosis Differential Diagnosis: UTI, acute renal failure, anemia, hematuria, medication reaction Medical Records Medical records reviewed: Yes I reviewed the patient's medical records Lab Data Lab results reviewed: Yes I reviewed the patient's lab results Labs: Lab Results 03/22/24 03/22/24 Range/Units 11:21 11:46 WBC 7.5 (4.0-11.0) 10^3/uL RBC 4.61 L (4.70-6.10) 10^6/uL Hgb 14.7 (14.0-18.0) g/dL Hct 42.4 (42.0-54.0) % MCV 92.0 (80.0-94.0) fL MCH 31.9 (25.9-34.0) pg MCHC 34.7 (29.9-35.2) g/dL RDW 13.1 (11.0-15.0) % Plt Count 179 (150-450) 10^3/uL MPV 10.3 (9.5-13.5) fL Neut % (Auto) 64.5 (43.0-75.0) % Lymph % (Auto) 22.8 (20.5-60.0) % [place] % (Auto) 9.6 (1.7-12.0) % Eos % (Auto) 2.1 (0.9-7.0) % Baso % (Auto) 0.7 (0.2-2.0) % Neut # (Auto) 4.8 (1.4-6.5) 10^3/uL Lymph # (Auto) 1.7 (1.2-3.8) 10^3/uL [place] # (Auto) 0.7 (0.3-0.8) 10^3/uL Eos # (Auto) 0.2 (0.0-0.7) 10^3/uL Baso # (Auto) 0.1 (0.0-0.1) 10^3/uL Abs Immat Gran (auto) 0.02 (0.00-0.03) 10^3/uL Imm/Tot Granulo (auto) 0.3 (0.0-0.5) % Sodium 140 (136-145) mmol/L Potassium 4.2 (3.5-5.1) mmol/L Chloride 105 (98-107) mmol/L Carbon Dioxide 24.6 (21.0-32.0) mmol/L Anion Gap 14.6 BUN 18.0 (7.0-18.0) mg/dL Creatinine 0.94 (0.70-1.30) mg/dL Est GFR ( Amer) >60 (>=60) Est GFR (Non-Af Amer) >60 (>=60) BUN/Creatinine Ratio 19.1 Glucose 123 H (74-106) mg/dL Calcium 9.3 (8.5-10.1) mg/dL Total Bilirubin 0.6 (0.2-1.0) mg/dL AST 26 (15-37) U/L ALT 35 (16-63) U/L Alkaline Phosphatase 84 (46-116) U/L Total Protein 7.0 (6.4-8.2) g/dL Albumin 3.8 (3.4-5.0) g/dL Globulin 3.2 g/dL Albumin/Globulin Ratio 1.2 Urine Color Yellow (YELLOW) Urine Clarity Clear (CLEAR) Urine pH 5.5 (5.0-9.0) Ur Specific [place] >=1.030 A (1.005-1.025) Urine Protein Trace (NEG/TRACE) mg/dL Urine Glucose (UA) Negative (NEGATIVE) mg/dL Urine Ketones Negative (NEGATIVE) mg/dL Urine Occult Blood Large A (NEGATIVE) Urine Nitrite Negative (NEGATIVE) Urine Bilirubin Negative (NEGATIVE) Urine Urobilinogen 0.2 (0.2-1.0) EU/dL Ur Leukocyte Esterase Negative (NEGATIVE) Urine RBC 20-50 A (0-2) #/HPF Urine WBC None seen (NONE SEEN) #/HPF Ur Squamous Epith Cells Few A (NONE/RARE) #/LPF Urine Crystals None seen (None Seen) #/HPF Urine Bacteria Small A (NONE SEEN) #/HPF Urine Casts None seen (NONE SEEN) #/LPF Urine Mucus Small A (NONE SEEN) Ur Culture Indicated? Yes Discharge Plan Discharge Stand Alone Forms: Work/School Release, Portal Instructions Chief Complaint: Urogenital-Male Clinical Impression: Hematuria Patient Disposition: Home, Self-Care Time of Disposition Decision: 12:41 Condition: Good Mode of Transportation: Private Vehicle Prescriptions / Home Meds: No Action naproxen sodium [Aleve] 220 mg capsule 220 mg PO BID PRN (Reason: pain) lisinopril-hydrochlorothiazide 10-12.5 mg tablet 1 tab PO DAILY Hold Instructions: Doctor's Order metformin 500 mg tablet 500 mg PO BID atorvastatin 80 mg tablet 80 mg PO QPM magnesium oxide-Mg AA chelate 300 mg capsule PO hydroxychloroquine PO Xarelto 15 mg tablet 15 mg PO BID Patient Comments: 21 days Rx Instructions: must administer with a meal/food sildenafil 100 mg tablet testosterone cypionate 200 mg/mL oil fluticasone propionate 50 mcg/actuation spray,suspension INTRANASAL Print Language: [place] Citizen Instructions: Hematuria (ED) Referrals: Demarco Fuentes MD [Primary Care Provider] - 1 week
== END 2024-03-22 12:56 | disposition home or self-care (01) ==
PROVIDERS: Emergency Provider Emergency Medicine; PCP Radiology Diagnostic Radiology
DX: R31.9 Hematuria, unspecified (principal); Z79.01 Long term (current) use of anticoagulants; Z98.890 Other specified postprocedural states; Z95.5 Presence of coronary angioplasty implant and graft
CPT/HCPCS: 36415; 80053; 81001; 85025; 87086; 99284

== ENCOUNTER 2024-04-01 12:54 | Outpatient (OUT) | payer MEDICARE, OTHER, SELFPAY ==
--- NOTE | 2024-04-01 12:57 | VEIN_ITS ---
Patient Name: SUDHA HERR MR#: [id number] : 1955 Exam Date: 04/01/2024 Ordering Doctor: DR GISSELLE QUINTERO M.D. RADIOLOGY REPORT PROCEDURE: VC EXT VENOUS LT LIMITED COMPARISON: [facility] EST [facility], 03/17/2024. VC EXT VENOUS LT LIMITED, 03/17/2024. INDICATIONS: I80.02 - Phlebitis and thrombophlebitis of superficial ve... TECHNIQUE: Lower extremity nichols scale and Duplex Doppler evaluation of the deep venous system from the inguinal ligament through the calf veins. FINDINGS: REGION: Left lower extremity. THROMBI: Positive for DVT. Positive for DVT in proximal PTV. COMPRESSIBILITY: Non-compressible segments.Non-compressible segments corresponding to thrombus FLOW: Areas of no flow corresponding to thrombus OTHER: CONCLUSION: 1. Persistent deep vein thrombus within the left posterior tibial vein, but less than previously seen. Patient has 1 week of Xarelto to complete on current regimen. Follow-up ultrasound at that time. Dictated by: Gisselle Quintero M.D. on 04/05/2024 at 13:52 Approved by: Gisselle Quintero M.D. on 04/05/2024 at 14:04
--- NOTE | 2024-04-01 13:31 | W.VEIN ---
Discharge Plan Discharge Disposition: Home, Self-Care Outpatient Diagnostics: VC INJ Sclerosing SOLMULT Vein (Routine) Timeframe: 2 Weeks Facility: [facility] - Location: Vein Center Ordered By: Demarco Fuentes Follow Up Appointments: 04/05/24 Plan of Treatment: Sclerotherapy of bilateral legs Print Language: Filipino Discharge Date/Time: 04/01/24 13:33
== END 2024-04-01 13:33 | disposition home or self-care (01) ==
PROVIDERS: PCP Radiology Diagnostic Radiology; Visit Provider Radiology Diagnostic Radiology
DX: I80.02 Phlebitis and thrombophlebitis of superficial vessels of left lower extremity (principal)
CPT/HCPCS: 93971

== ENCOUNTER 2024-05-26 14:01 | Outpatient (OUT) | payer MEDICARE, OTHER, SELFPAY ==
--- NOTE | 2024-05-26 13:11 | V.VEINS.HP ---
Varicose Veins Patient in this day with c/o IIsaías MD personally performed the services described in this documentation, as scribed by Ryder Flores RN in my presence and it is both accurate and complete. I, Ryder Flores RN, am scribing for, and in the presence of, Dr. Isaías Quintero and in the presence of the patient. .. Review of Systems ROS Status of ROS 10 or more systems reviewed and unremarkable except as noted in history and below PFSH PFSH Medical History (Updated 05/26/24 @ 13:12 by Ryder Flores) Pain due to varicose veins of both lower extremities ?I83.813 - Varicose veins of bilateral lower extremities with pain (ICD-10) FH: total knee replacement ?Z82.69 - Family history of other diseases of the musculoskeletal system and connective tissue (ICD-10) Rotator cuff arthropathy ?M12.819 - Other specific arthropathies, not elsewhere classified, unspecified shoulder (ICD-10) Restless leg ?G25.81 - Restless legs syndrome (ICD-10) Gout ?M10.9 - Gout, unspecified (ICD-10) Type 2 diabetes mellitus ?E11.9 - Type 2 diabetes mellitus without complications (ICD-10) Peripheral neuropathy ?G62.9 - Polyneuropathy, unspecified (ICD-10) Hypertension ?I10 - Essential (primary) hypertension (ICD-10) Anxiety ?F41.9 - Anxiety disorder, unspecified (ICD-10) Hyperlipemia ?E78.5 - Hyperlipidemia, unspecified (ICD-10) Depression ?F32.A - Depression, unspecified (ICD-10) Arthritis ?M19.90 - Unspecified osteoarthritis, unspecified site (ICD-10) Phlebitis of superficial vein of left lower extremity ?I80.02 - Phlebitis and thrombophlebitis of superficial vessels of left lower extremity (ICD-10) Varicose veins of bilateral lower extremities with pain ?I83.813 - Varicose veins of bilateral lower extremities with pain (ICD-10) Surgical History (Updated 02/26/24 @ 12:39 by Ryder Flores) H/O heart artery stent ?Z95.5 - Presence of coronary angioplasty implant and graft (ICD-10) Family History (Updated 02/26/24 @ 12:40 by Ryder Flores) Other Family history of diabetes mellitus Family history of hypertension Varicose veins of bilateral lower extremities with pain Meds Home Medications and Allergies Home Medications ?Medication ?Instructions ?Recorded ?Confirmed ?Type atorvastatin 80 mg tablet 80 mg PO QPM 02/26/24 03/22/24 History hydroxychloroquine PO 02/26/24 History lisinopril 10 1 tab PO DAILY 02/26/24 03/22/24 History mg-hydrochlorothiazide 12.5 mg tablet magnesium oxide-magnesium amino cap PO 02/26/24 History acid chelate 300 mg capsule metformin 500 mg tablet 500 mg PO BID 02/26/24 03/22/24 History naproxen sodium 220 mg capsule 220 mg PO BID PRN pain 02/26/24 02/26/24 History (Aleve) rivaroxaban 15 mg tablet (Xarelto) 15 mg PO BID 03/17/24 03/22/24 History fluticasone propionate 50 intranasal 03/22/24 History mcg/actuation nasal spray,suspension sildenafil 100 mg tablet mg 03/22/24 History testosterone cypionate 200 mg/mL mg 03/22/24 History intramuscular oil Allergies Allergy/AdvReac Type Severity Reaction Status Date / Time amoxicillin (From Augmentin) Allergy Severe Difficulty Verified 02/19/24 15:40 Breathing clavulanic acid (From Allergy Severe Difficulty Verified 02/19/24 15:40 Augmentin) Breathing penicillamine Allergy Severe Anaphylaxis Verified 02/19/24 15:40 Penicillins Allergy Swelling Verified 02/26/24 12:43 of Lip/Tongue/Throat Exam Narrative Exam Narrative: General: alert, no acute distress Cardiovascular: regular rate and rhythm, normal peripheral perfusion. Respiratory: Lungs CTA, respirations non labored. Extremities: no deformity, no trauma. Compression stocking on the left extremity. No severe pain Swelling as to be expected Neurological: oriented x 4, LOC appropriate for age. Abdomen soft nontender nondistended Assessment and Plan Assessment and Plan (1) Pain due to varicose veins of both lower extremities: Plan Patient to IIsaías MD personally performed the services described in this documentation, as scribed by Ryder Flores RN in my presence and it is both accurate and complete. Ryder Flores RN, am scribing for, and in the presence of, Dr. Isaías Quintero and in the presence of the patient.
--- NOTE | 2024-05-26 13:13 | W.VEIN ---
Discharge Plan Discharge Disposition: Home, Self-Care Discharge Medications: No Action naproxen sodium [Aleve] 220 mg capsule 220 mg PO BID PRN (Reason: pain) lisinopril-hydrochlorothiazide 10-12.5 mg tablet 1 tab PO DAILY metformin 500 mg tablet 500 mg PO BID atorvastatin 80 mg tablet 80 mg PO QPM magnesium oxide-Mg AA chelate 300 mg capsule PO hydroxychloroquine PO Xarelto 15 mg tablet 15 mg PO BID Patient Comments: 21 days Rx Instructions: must administer with a meal/food sildenafil 100 mg tablet testosterone cypionate 200 mg/mL oil fluticasone propionate 50 mcg/actuation spray,suspension INTRANASAL Print Language: Cameroonian
--- NOTE | 2024-05-26 14:19 | VEIN_ITS ---
Patient Name: SUDHA HERR MR#: [id number] : 1955 Exam Date: 05/26/2024 Ordering Doctor: DR GISSELLE QUINTERO M.D. RADIOLOGY REPORT PROCEDURE: VC EXT VENOUS LT LIMITED COMPARISON: VC EXT VENOUS LT LIMITED, 03/17/2024. VC EXT VENOUS LT LIMITED, 04/01/2024. INDICATIONS: I80.02 Phlebitis and thrombophlebitis left leg veins TECHNIQUE: Lower extremity nichols scale and Duplex Doppler evaluation of the deep venous system from the inguinal ligament through the calf veins. FINDINGS: REGION: Left lower extremity. THROMBI: Positive for DVT. Stable thrombus in left PTV. COMPRESSIBILITY: Non-compressible segments corresponding to thrombus FLOW: Areas of no flow corresponding to thrombus OTHER: CONCLUSION: 1. 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 2. No new findings. Dictated by: Gisselle Quintero M.D. on 05/27/2024 at 09:09 Approved by: Gisselle Quintero M.D. on 05/27/2024 at 09:12
--- NOTE | 2024-05-26 14:19 | VEIN_ITS ---
Patient Name: SUDHA HERR MR#: [id number] : 1955 Exam Date: 05/26/2024 Ordering Doctor: DR GISSELLE MORA M.D. RADIOLOGY REPORT PROCEDURE: [facility] OFF[facility] VISIT FOLLOW [facility] PROGRESS NOTES: The patient reports improvement in left leg symptoms but some persistent numbness and swelling medial ankle and chronic tenderness between left 2nd 3rd toes. The patient has followed our recommendations to do some walking, and is working to get accommodations such as a walker to assist in ability to walk. Physical exam demonstrates mild swelling medial to the ankle; unchanged. No abnormal or suspicious findings between 2nd 3rd toes. Review of the ultrasound performed the same day demonstrates occlusive thrombus extending throughout the treated vein(s), see separate report, consistent with a successful ablation. No thrombus extending into or beyond the saphenofemoral junction. Stable small amount of chronic thrombus within left posterior tibial vein. Patient is preparing to undergo shoulder surgery and will follow-up with us for additional vein treatment after that. VEIN/[facility] EST LMTD IMPRESSION: 1. No new or suspicious findings. Stable small amount of chronic thrombus within the left posterior tibial vein. PLAN: Patient is undergoing shoulder surgery will follow-up with us at the vein center when that is complete and patient is ready for additional treatment. Nurse notes, history and physical were reviewed and confirmed, see attached forms. The nurse was present throughout the physical exam and consultation Dictated by: Gisselle Mora M.D. on 05/27/2024 at 09:12 Approved by: Gisselle Mora M.D. on 05/27/2024 at 09:15
[2024-05-26 14:39] VITALS: BMI 36.1
--- NOTE | 2024-05-26 14:39 | VEINCLINIC_ITS ---
Vital Signs 05/26/24 14:39 Height 6 ft 1 in Weight 124 kg BMI 36.1 Varicose Veins Patient in this day with pain in left foot and numbness medial left ankle. Ultrasound of venous doppler of left leg performed and consult with physician. Isaías Flores MD personally performed the services described in this documentation, as scribed by Kristan Márquez RDMS in my presence and it is both accurate and complete. Kristan Flores RDMS, am scribing for, and in the presence of, Dr. Christine Quintero and in the presence of the patient. Review of Systems ROS Narrative Isaías Flores MD personally performed the services described in this docume ntation, as scribed by Kristan Márquez RDMS in my presence and it is both accurate and complete. Kristan Flores RDMS, am scribing for, and in the presence of, Dr. Christine Quintero and in the presence of the patient. Status of ROS 10 or more systems reviewed and unremark able except as noted in history and below Cardiovascular Reports: edema Integumentary/Breast Reports: redness and changes in skin color Hematologic/Lymphatic Reports: easy bruising and easy bleeding PFSH [facility] Medical History (Updated 05/26/24 @ 13:12 by Ryder Flores) Pain due to varicose veins of both lower extremities ?I83.813 - Varicose veins of bilateral lower extremities with pain (ICD-10) FH: total knee replacement ?Z82.69 - Family history of other diseases of the musculoskeletal system and connective tissue (ICD-10) Rotator cuff arthropathy ?M12.819 - Other specific arthropathies, not elsewhere classified, unspecified shoulder (ICD-10) Restless leg ?G25.81 - Restless legs syndrome (ICD-10) Gout ?M10.9 - Gout, unspecified (ICD-10) Type 2 diabetes mellitus ?E11.9 - Type 2 diabetes mellitus without complications (ICD-10) Peripheral neuropathy ?G62.9 - Polyneuropathy, unspecified (ICD-10) Hypertension ?I10 - Essential (primary) hypertension (ICD-10) Anxiety ?F41.9 - Anxiety disorder, unspecified (ICD-10) Hyperlipemia ?E78.5 - Hyperlipidemia, unspecified (ICD-10) Depression ?F32.A - Depression, unspecified (ICD-10) Arthritis ?M19.90 - Unspecified osteoarthritis, unspecified site (ICD-10) Phlebitis of superficial vein of left lower extremity ?I80.02 - Phlebitis and thrombophlebitis of superficial vessels of left lower extremity (ICD-10) Varicose veins of bilateral lower extremities with pain ?I83.813 - Varicose veins of bilateral lower extremities with pain (ICD-10) Surgical History (Updated 02/26/24 @ 12:39 by Ryder Flores) H/O heart artery stent ?Z95.5 - Presence of coronary angioplasty implant and graft (ICD-10) Family History (Updated 02/26/24 @ 12:40 by Ryder Flores) Other Family history of diabetes mellitus Family history of hypertension Varicose veins of bilateral lower extremities with pain Meds Home Medications and Allergies Home Medications ?Medication ?Instructions ?Recorded ?Confirmed ?Type atorvastatin 80 mg tablet 80 mg PO QPM 02/26/24 03/22/24 History hydroxychloroquine PO 02/26/24 History lisinopril 10 1 tab PO DAILY 02/26/24 03/22/24 History mg-hydrochlorothiazide 12.5 mg tablet magnesium oxide-magnesium amino cap PO 02/26/24 History acid chelate 300 mg capsule metformin 500 mg tablet 500 mg PO BID 02/26/24 03/22/24 History naproxen sodium 220 mg capsule 220 mg PO BID PRN pain 02/26/24 02/26/24 History (Aleve) rivaroxaban 15 mg tablet (Xarelto) 15 mg PO BID 03/17/24 05/26/24 History fluticasone propionate 50 intranasal 03/22/24 History mcg/actuation nasal spray,suspension sildenafil 100 mg tablet mg 03/22/24 History testosterone cypionate 200 mg/mL mg 03/22/24 History intramuscular oil Allergies Allergy/AdvReac Type Severity Reaction Status Date / Time amoxicillin (From Augmentin) Allergy Severe Difficulty Verified 02/19/24 15:40 Breathing clavulanic acid (From Allergy Severe Difficulty Verified 02/19/24 15:40 Augmentin) Breathing penicillamine Allergy Severe Anaphylaxis Verified 02/19/24 15:40 Penicillins Allergy Swelling Verified 02/26/24 12:43 of Lip/Tongue/Throat Exam Narrative Exam Narrative: Patient has pain in left foot between toes and numbness left medial ankle. Isaías Flores MD personally performed the services described in this documentation, as scribed by Kristan Márquez RDMS in my presence and it is both accurate and complete. Kristan Flores RDMS, am scribing for, and in the presence of, Dr. Christine Quintero and in the presence of the patient. Constitutional Documenting provider has reviewed patient's vital signs: yes Common normals: oriented x3 Nutritional appearance: overweight Cardio Peripheral pulses: posterior tibial pulses present Extremity Common normals: normal capillary refill General: edema Right lower extremity: lower leg Right lower leg: inspection and palpation Left lower extremity: lower leg Left lower leg: inspection and palpation Neuro Common normals: oriented x3 Results Imaging Venous US: Radiologist's impression: Stable thrombus in left PTV from prox to distal lower leg. No new thrombus visualized. Isaías Flores MD personally performed the services described in this documentation, as scribed by Kristan Márquez RDMS in my presence and it is both accurate and complete. Kristan Flores RDMS am scribing for, and in the presence of, Dr. Christine Quintero and in the presence of the patient. Assessment and Plan Assessment and Plan (1) Pain due to varicose veins of both lower extremities: (2) Phlebitis of superficial vein of left lower extremity: Plan Patient is done with treatment at this time and was advised to discontinue Aspirin 325 mg. Patient wishes to continue taking Aspirin 81 mg. Patient is going to have surgery on right shoulder before consluting with PCP about foot pain. Isaías Flores MD personally performed the services described in this docume ntation, as scribed by Kristan Márquez RDMS in my presence and it is both accurate and complete. Kristan Flores RDMS am scribing for, and in the presence of, Dr. Christine Quintero and in the presence of the patient.
--- NOTE | 2024-05-26 14:51 | P.DS_ITS ---
Discharge Plan Discharge Disposition: Home, Self-Care Plan of Treatment: Patient is finished with treatment at this time and advised to follow up with PCP. Print Language: Greenlandic Discharge Date/Time: 05/26/24 14:58
== END 2024-05-26 14:58 | disposition home or self-care (01) ==
LOC: VC 14:01
PROVIDERS: PCP Radiology Diagnostic Radiology; Visit Provider Radiology Diagnostic Radiology
DX: I80.02 Phlebitis and thrombophlebitis of superficial vessels of left lower extremity (principal)
CPT/HCPCS: 93971; G0463